=== PATIENT | male | born 1965 | race Caucasian/White ===

== ENCOUNTER 2020-09-09 11:38 | Outpatient (REF) | payer OTHER, SELFPAY ==
[2020-09-09 14:20] LABS: Estimated Average Glucose 212 mg/dL
[2020-09-09 14:39] LABS: Alanine Aminotransferase 24 U/L (0-40); Albumin Level 4.7 g/dL (3.5-5.0); Alkaline Phosphatase 83 U/L (39-117); Anion Gap 18 (12-20); Aspartate Amino Transferase 17 U/L (5-37); Bilirubin Total 0.7 mg/dL (0.0-1.0); Blood Urea Nitrogen 15 mg/dL (9-16); Calcium 9.7 mg/dL (8.4-10.2); Carbon Dioxide 28 mmol/L (22-29); Chloride 99 mmol/L (96-108); Cholesterol 334 mg/dL; Estimated Glomerular Filt Rate > 60; Glucose Fasting 211 mg/dL (60-99); HDL Cholesterol 46 mg/dL; LDL Cholesterol Calculated 248 mg/dl; Potassium 5.1 mmol/l (3.3-5.1); Sodium 140 mmol/L (135-145); Total Protein 7.9 g/dL (6.5-8.0); Triglycerides 200 mg/dL
== END 2020-09-09 11:39 | disposition home or self-care (01) ==
LOC: HO.HMGCLDS 11:38
PROVIDERS: PCP Nurse Practitioner Family; Visit Provider Nurse Practitioner Family
DX: E11.65 Type 2 diabetes mellitus with hyperglycemia (principal); E78.5 Hyperlipidemia, unspecified
CPT/HCPCS: 80053; 80061; 83036

== ENCOUNTER 2020-10-09 11:54 | Outpatient (REF) | payer OTHER, SELFPAY ==
[2020-10-09 14:25] LABS: Cholesterol 130 mg/dL; HDL Cholesterol 36 mg/dL; LDL Cholesterol Calculated 73 mg/dl; Triglycerides 106 mg/dL
== END 2020-10-09 11:55 | disposition home or self-care (01) ==
LOC: HO.HMGCLDS 11:54
PROVIDERS: PCP Nurse Practitioner Family; Visit Provider Nurse Practitioner Family
DX: E78.5 Hyperlipidemia, unspecified (principal); E11.65 Type 2 diabetes mellitus with hyperglycemia
CPT/HCPCS: 36415; 80061

== ENCOUNTER 2020-10-19 13:08 | Outpatient (REF) | payer OTHER, SELFPAY ==
--- NOTE | ~2020-10-19 | XR_ITS ---
EXAMINATION: XR HAND, RIGHT CLINICAL INFORMATION: Right hand pain. COMPARISON: None TECHNIQUE: PA, lateral, and oblique views of the right hand. FINDINGS: No acute fracture or dislocation. Normal carpal alignment. Mild joint space narrowing with small marginal osteophytes at the 1st carpometacarpal joint as well as scattered throughout the metacarpophalangeal and interphalangeal joints. Findings are most prominent at the 3rd distal interphalangeal joint. No osseous erosion. Atherosclerotic calcifications. No periarticular osteopenia. XR/XR hand RT min 3V IMPRESSION: Degenerative arthritis at the 1st carpometacarpal joint as well as scattered throughout the metacarpophalangeal and interphalangeal joints. Findings are most prominent at the 3rd distal interphalangeal joint.
== END 2020-10-19 13:09 | disposition home or self-care (01) ==
LOC: HO.HMGCX 13:08
PROVIDERS: PCP Nurse Practitioner Family; Visit Provider Nurse Practitioner Family
DX: M79.641 Pain in right hand (principal)
CPT/HCPCS: 73130

== ENCOUNTER → 2020-10-28 07:58 | Outpatient (BNVA) | payer OTHER, SELFPAY | PROVIDERS: PCP Nurse Practitioner Family; Visit Provider Orthopaedic Surgery | DX: R20.0 Anesthesia of skin (principal); R20.2 Paresthesia of skin; M79.641 Pain in right hand | CPT/HCPCS: 99202 ==

== ENCOUNTER 2020-12-03 08:32 | Outpatient (REF) | payer OTHER, SELFPAY ==
--- NOTE | 2020-12-03 08:44 | EMG_ITS ---
Right median and ulnar motor and sensory studies were performed. Right radial sensory study was performed and paraspinal muscles were tested. IMPRESSION: [id number] right median neuropathy across carpal tunnel. MD CRUZITO Strickland/SINDY / [id number]
== END 2020-12-03 08:33 | disposition home or self-care (01) ==
LOC: HO.NEURO 08:32
PROVIDERS: Visit Provider Orthopaedic Surgery
DX: M79.641 Pain in right hand (principal); R20.0 Anesthesia of skin; R20.2 Paresthesia of skin; E11.65 Type 2 diabetes mellitus with hyperglycemia
CPT/HCPCS: 95860; 95886; 95909

== ENCOUNTER 2020-12-14 12:08 | Outpatient (REF) | payer OTHER, SELFPAY ==
--- NOTE | ~2020-12-14 | XR_ITS ---
EXAMINATION: XR WRIST, LEFT CLINICAL INFORMATION: Pain in the left wrist COMPARISON: None TECHNIQUE: Four views of the left wrist. FINDINGS: There is no fracture or dislocation. The carpal rows are appropriately aligned. Joint spaces are maintained. Small osteophytes of the first carpometacarpal joint. Small osteophytes are seen at the metacarpophalangeal joints. Vascular calcifications are noted. No osseous erosions. Soft tissue swelling. XR/XR wrist LT min 3V IMPRESSION: Mild degenerative change at the first carpometacarpal joint.
== END 2020-12-14 12:09 | disposition home or self-care (01) ==
LOC: HO.HOSX 12:08
PROVIDERS: PCP Nurse Practitioner Family; Visit Provider Orthopaedic Surgery
DX: G56.01 Carpal tunnel syndrome, right upper limb (principal); M25.532 Pain in left wrist; M25.641 Stiffness of right hand, not elsewhere classified; M79.641 Pain in right hand; S52.502A Unspecified fracture of the lower end of left radius, initial encounter for closed fracture; X58.XXXA Exposure to other specified factors, initial encounter; Y93.9 Activity, unspecified; Y92.9 Unspecified place or not applicable; Y99.8 Other external cause status; I11.0 Hypertensive heart disease with heart failure; I50.9 Heart failure, unspecified; E78.00 Pure hypercholesterolemia, unspecified; G47.33 Obstructive sleep apnea (adult) (pediatric); F17.200 Nicotine dependence, unspecified, uncomplicated; Z88.5 Allergy status to narcotic agent; Z88.8 Allergy status to other drugs, medicaments and biological substances
CPT/HCPCS: 73110; 99212

== ENCOUNTER 2021-02-04 08:06 | Outpatient (REF) | payer OTHER, SELFPAY ==
[2021-02-04 11:29] LABS: Estimated Average Glucose 214 mg/dL; Hemoglobin A1c % 9.1 %
[2021-02-04 11:48] LABS: Alanine Aminotransferase 18 U/L (0-40); Albumin Level 4.5 g/dL (3.5-5.0); Alkaline Phosphatase 92 U/L (39-117); Anion Gap 19 (12-20); Aspartate Amino Transferase 13 U/L (5-37); Bilirubin Total 0.3 mg/dL (0.0-1.0); Blood Urea Nitrogen 22 mg/dL (9-16); Carbon Dioxide 22 mmol/L (22-29); Chloride 103 mmol/L (96-108); Cholesterol 235 mg/dL; Estimated Glomerular Filt Rate 59; Glucose Fasting 330 mg/dL (60-99); HDL Cholesterol 55 mg/dL; LDL Cholesterol Calculated 143 mg/dl; Potassium 4.8 mmol/L (3.3-5.1); Sodium 139 mmol/L (135-145); Total Protein 7.7 g/dL (6.5-8.0); Triglycerides 185 mg/dL
[2021-02-04 11:54] LABS: TSH reflex Free T4 1.35 uIU/mL (0.32-4.0)
== END 2021-02-04 08:07 | disposition home or self-care (01) ==
LOC: HO.HMGCLDS 08:06
PROVIDERS: PCP Nurse Practitioner Family; Visit Provider Nurse Practitioner Family
DX: E11.65 Type 2 diabetes mellitus with hyperglycemia (principal)
CPT/HCPCS: 36415; 80053; 80061; 83036; 84443

== ENCOUNTER → 2021-07-19 10:35 | Outpatient (BNVA) | payer OTHER, SELFPAY | PROVIDERS: PCP Nurse Practitioner Family; Visit Provider Internal Medicine | DX: G47.30 Sleep apnea, unspecified (principal); G47.50 Parasomnia, unspecified; F17.200 Nicotine dependence, unspecified, uncomplicated | CPT/HCPCS: 99202 ==

== ENCOUNTER 2021-10-08 11:23 | Outpatient (REF) | payer OTHER, SELFPAY ==
[2021-10-08 13:57] LABS: Alanine Aminotransferase 31 U/L (0-40); Albumin Level 4.3 g/dL (3.5-5.0); Alkaline Phosphatase 83 U/L (39-117); Anion Gap 14 (12-20); Aspartate Amino Transferase 18 U/L (5-37); Bilirubin Total 0.6 mg/dL (0.0-1.0); Blood Urea Nitrogen 16 mg/dL (9-16); Calcium 10.3 mg/dL (8.4-10.2); Carbon Dioxide 32 mmol/L (22-29); Chloride 101 mmol/L (96-108); Cholesterol 204 mg/dL; Estimated Glomerular Filt Rate > 60; Glucose Fasting 213 mg/dL (60-99); HDL Cholesterol 45 mg/dL; LDL Cholesterol Calculated 121 mg/dl; Potassium 5.3 mmol/L (3.3-5.1); Sodium 142 mmol/L (135-145); Total Protein 7.8 g/dL (6.5-8.0); Triglycerides 194 mg/dL
[2021-10-08 14:05] LABS: Estimated Average Glucose 232 mg/dL; Hemoglobin A1c % 9.7 %
[2021-10-08 14:22] LABS: Prostate Specific Antigen Scr 0.49 ng/mL (<0.05-4.0)
[2021-10-08 14:23] LABS: Creatinine Urine 152.98 mg/dL; Microalbum/Creatinine Ratio Ur 34.6 ug/mg cr
== END 2021-10-08 11:24 | disposition home or self-care (01) ==
LOC: HO.HMGCLDS 11:23
PROVIDERS: Visit Provider Nurse Practitioner Family
DX: Z12.5 Encounter for screening for malignant neoplasm of prostate (principal); E11.65 Type 2 diabetes mellitus with hyperglycemia
CPT/HCPCS: 36415; 80053; 80061; 82043; 83036; 84153

== ENCOUNTER → 2021-10-20 20:03 | Outpatient (REF) | payer OTHER, SELFPAY | LOC: HO.SL 20:03 | PROVIDERS: PCP Nurse Practitioner Family; Visit Provider Internal Medicine | DX: G47.33 Obstructive sleep apnea (adult) (pediatric) (principal); Z99.89 Dependence on other enabling machines and devices | CPT/HCPCS: 95810 ==

== ENCOUNTER → 2021-10-27 13:02 | Outpatient (BNVA) | payer OTHER, SELFPAY | PROVIDERS: PCP Nurse Practitioner Family; Visit Provider Internal Medicine | DX: G47.30 Sleep apnea, unspecified (principal); F17.210 Nicotine dependence, cigarettes, uncomplicated | CPT/HCPCS: 99212 ==

== ENCOUNTER 2021-12-30 11:21 | Outpatient (REF) | payer OTHER, SELFPAY ==
[2021-12-30 13:58] LABS: Anion Gap 10 (12-20); Carbon Dioxide 25 mmol/L (22-29); Chloride 104 mmol/L (96-108); Potassium 4.3 mmol/L (3.3-5.1); Sodium 135 mmol/L (135-145)
== END 2021-12-30 11:22 | disposition home or self-care (01) ==
LOC: HO.HMGCLDS 11:21
PROVIDERS: PCP Nurse Practitioner Family; Visit Provider Nurse Practitioner Family
DX: E87.5 Hyperkalemia (principal)
CPT/HCPCS: 36415; 80051

== ENCOUNTER → 2022-01-03 12:55 | Outpatient (BNVA) | payer OTHER, SELFPAY | PROVIDERS: PCP Nurse Practitioner Family; Visit Provider Internal Medicine | DX: G47.33 Obstructive sleep apnea (adult) (pediatric) (principal); G47.50 Parasomnia, unspecified; F17.210 Nicotine dependence, cigarettes, uncomplicated | CPT/HCPCS: 99212 ==

== ENCOUNTER 2022-05-27 10:49 | Outpatient (REF) | payer OTHER, SELFPAY ==
[2022-05-27 13:58] LABS: MANUAL DIFF FLAG NO
[2022-05-27 14:03] LABS: Basophils Percent Auto 0.5 % (0-2); Eosinophils Absolute Auto 0.2 X10*3/uL (0.0-0.4); Eosinophils Percent Auto 2.4 % (0-4); Hematocrit 48.4 % (42.0-52.0); Hemoglobin 15.6 g/dl (14.0-18.0); Imm Gran Abs Auto 0.02 X10*3/uL (0.00-0.03); Imm Gran Pct Auto 0.3 % (0.0-0.4); Mean Corpuscular HGB Conc 32.2 g/dl (31.0-36.0); Mean Corpuscular Hemoglobin 31.7 pg (27.0-33.0); Mean Corpuscular Volume 98.4 fL (80.0-98.0); Mean Platelet Volume 10.9 fL (9.4-12.4); Monocytes Absolute Auto 0.6 X10*3/uL (0.1-1.2); Monocytes Percent Auto 7.1 % (2-11); Neutrophils Absolute Auto 5.1 x10*3/uL (2.0-8.3); Neutrophils Percent Auto 64.7 % (45-73); Platelet Count 207 X10*3/uL (160-400); Red Blood Count 4.92 X10*6/uL (4.60-5.80); Red Cell Distribution Width 14.1 % (11.0-16.0); White Blood Count 7.9 X10*3/uL (4.8-10.8)
[2022-05-27 14:08] LABS: Appearance Urine Turbid; Color Urine Yellow; Glucose Urine UA Negative (Negative); Leukocyte Esterase Urine Negative (Negative); Nitrite Urine Negative (Negative); PH 5.5 (5.0-9.0); Specific Gravity - Urine >= 1.030 (1.005-1.025); Urine Blood Negative (Negative); Urine Ketones Negative (Negative); Urine Protein Negative (Neg-Trace)
[2022-05-27 14:14] LABS: Alanine Aminotransferase 28 U/L (0-40); Albumin Level 4.3 g/dL (3.5-5.0); Alkaline Phosphatase 70 U/L (39-117); Anion Gap 18 (12-20); Aspartate Amino Transferase 18 U/L (5-37); Bilirubin Total 0.6 mg/dL (0.0-1.0); Blood Urea Nitrogen 19 mg/dL (9-16); Calcium 9.7 mg/dL (8.4-10.2); Carbon Dioxide 28 mmol/L (22-29); Chloride 102 mmol/L (96-108); Cholesterol 310 mg/dL; Estimated Average Glucose 212 mg/dL; Estimated Glomerular Filt Rate > 60; Glucose Fasting 168 mg/dL (60-99); HDL Cholesterol 44 mg/dL; LDL Cholesterol Calculated 232 mg/dl; Potassium 5.7 mmol/L (3.3-5.1); Sodium 142 mmol/L (135-145); Total Protein 7.5 g/dL (6.5-8.0); Triglycerides 170 mg/dL
[2022-05-27 14:37] LABS: TSH reflex Free T4 1.03 uIU/mL (0.32-4.0)
[2022-05-27 14:38] LABS: Creatinine Urine 218.45 mg/dL
== END 2022-05-27 10:50 | disposition home or self-care (01) ==
LOC: HO.HMGCLDS 10:49
PROVIDERS: PCP Nurse Practitioner Family; Visit Provider Nurse Practitioner Family
DX: E11.65 Type 2 diabetes mellitus with hyperglycemia (principal)
CPT/HCPCS: 36415; 80053; 80061; 81003; 82043; 83036; 84443; 85025

== ENCOUNTER 2022-06-06 10:32 | Outpatient (REF) | payer OTHER, SELFPAY ==
[2022-06-06 12:45] LABS: Anion Gap 20 (12-20); Carbon Dioxide 27 mmol/L (22-29); Chloride 103 mmol/L (96-108); Potassium 5.6 mmol/L (3.3-5.1); Sodium 144 mmol/L (135-145)
== END 2022-06-06 10:33 | disposition home or self-care (01) ==
LOC: HO.HMGCLDS 10:32
PROVIDERS: PCP Nurse Practitioner Family; Visit Provider Nurse Practitioner Family
DX: E87.5 Hyperkalemia (principal)
CPT/HCPCS: 36415; 80051

== ENCOUNTER 2022-06-11 13:02 | Outpatient (REF) | payer OTHER, SELFPAY ==
[2022-06-11 15:24] LABS: Anion Gap 13 (12-20); Carbon Dioxide 28 mmol/L (22-29); Chloride 107 mmol/L (96-108); Sodium 143 mmol/L (135-145)
== END 2022-06-11 13:03 | disposition home or self-care (01) ==
LOC: HO.HMGCLDS 13:02
PROVIDERS: PCP Nurse Practitioner Family; Visit Provider Nurse Practitioner Family
DX: E87.5 Hyperkalemia (principal)
CPT/HCPCS: 36415; 80051

== ENCOUNTER 2022-06-24 09:41 | Outpatient (REF) | payer OTHER, SELFPAY ==
--- NOTE | ~2022-06-24 | XR_ITS ---
EXAMINATION: XR SHOULDER, RIGHT CLINICAL INFORMATION: Pain. COMPARISON: None TECHNIQUE: AP external rotation, Grashey, scapular Y, and axillary views of the right shoulder. FINDINGS: There is loss of right glenohumeral and before meals joint space with moderate periarticular spurring. No visible acute fracture, dislocation or subluxation seen. A small osteophyte along the right greater tuberosity. No bony erosive changes. The soft tissues are normal. XR/XR shoulder RT min 2V IMPRESSION: 1. Degenerative arthritic changes right shoulder joint. No visible acute fracture, dislocation or subluxation seen. 2. Small osteophyte along the right greater tuberosity.
== END 2022-06-24 09:42 | disposition home or self-care (01) ==
LOC: HO.HMGCX 09:41
PROVIDERS: PCP Nurse Practitioner Family; Visit Provider Nurse Practitioner Family
DX: M25.511 Pain in right shoulder (principal)
CPT/HCPCS: 73030

== ENCOUNTER → 2022-08-02 10:37 | Outpatient (BNVA) | payer OTHER, SELFPAY | PROVIDERS: PCP Nurse Practitioner Family; Visit Provider Physician Assistant | DX: M19.019 Primary osteoarthritis, unspecified shoulder (principal); M75.101 Unspecified rotator cuff tear or rupture of right shoulder, not specified as traumatic; E11.9 Type 2 diabetes mellitus without complications | CPT/HCPCS: 20610; 99202; J1020 ==

== ENCOUNTER → 2022-08-18 10:36 | Outpatient (BNVA) | payer OTHER, SELFPAY | PROVIDERS: PCP Nurse Practitioner Family; Visit Provider Physician Assistant | DX: M75.101 Unspecified rotator cuff tear or rupture of right shoulder, not specified as traumatic (principal); M19.011 Primary osteoarthritis, right shoulder; E11.9 Type 2 diabetes mellitus without complications; I10 Essential (primary) hypertension; E78.00 Pure hypercholesterolemia, unspecified | CPT/HCPCS: 99212 ==

== ENCOUNTER → 2022-08-24 08:17 | Outpatient (BNVA) | payer OTHER, SELFPAY | PROVIDERS: PCP Nurse Practitioner Family; Visit Provider Physician Assistant | DX: R19.5 Other fecal abnormalities (principal); K22.70 Barrett's esophagus without dysplasia; Z78.9 Other specified health status | CPT/HCPCS: 99202 ==

== ENCOUNTER 2022-09-01 10:30 | Outpatient (REF) | payer OTHER, SELFPAY ==
--- NOTE | ~2022-09-01 | XR_ITS ---
EXAMINATION: XR CHEST CLINICAL INFORMATION: Cough. COMPARISON: 07/17/2018 chest radiograph. TECHNIQUE: 2 views of the chest were obtained. FINDINGS: No significant abnormality is noted involving the heart, lungs, mediastinum, bony thorax or soft tissues. XR/XR chest 2V IMPRESSION: No acute cardiopulmonary process.
== END 2022-09-01 10:31 | disposition home or self-care (01) ==
LOC: HO.HMGCX 10:30
PROVIDERS: PCP Nurse Practitioner Family; Visit Provider Nurse Practitioner Family
DX: R05.9 Cough, unspecified (principal)
CPT/HCPCS: 71046

== ENCOUNTER → 2022-09-15 15:30 | Outpatient (BNVA) | payer OTHER, SELFPAY | PROVIDERS: PCP Nurse Practitioner Family; Visit Provider Internal Medicine | DX: G47.30 Sleep apnea, unspecified (principal); F17.290 Nicotine dependence, other tobacco product, uncomplicated | CPT/HCPCS: 94010; 99212 ==

== ENCOUNTER 2022-09-19 12:52 | Day surgery (SDC) | payer OTHER, SELFPAY ==
[2022-09-14 15:23] VITALS: BMI 38.5
[2022-09-19 13:21] VITALS: BP 166/90; PULSE 104; RESP 18; TEMP 36.1; O2SAT 97; BMI 34.4
[2022-09-19 13:34] LABS: Glucose, Whole Blood 277 mg/dL (60-115)
--- NOTE | 2022-09-19 13:45 | ECG_ITS ---
Test Reason : ST ELEVATIONS Blood Pressure : / mmHG Vent. Rate : 087 BPM Atrial Rate : 087 BPM P-R Int : 146 ms QRS Dur : 134 ms QT Int : 390 ms P-R-T Axes : 070 -09 034 degrees QTc Int : 469 ms Normal sinus rhythm Right bundle branch block Abnormal ECG No previous ECGs available Referred By: Boone Gaviria Electronically Signed By:Rod Goncalves
[2022-09-19] MEDS: Lactated Ringers 1,000 ML 80 ML IVCONT (13:49)
--- NOTE | 2022-09-19 13:57 | P.CONAN_ITS ---
[facility] Active Problems Active Problems: All Active Problems (Updated 09/15/22 @ 16:41 by Marlon Cid MD) Uncontrolled diabetes mellitus (Acute) Dyslipidemia (Acute) Right hand pain (Acute) Numbness and tingling in right hand (Acute) Carpal tunnel syndrome of right wrist (Acute) Stiffness of right hand, not elsewhere classified (Acute) Distal radius fracture, left (Acute) Screening PSA (prostate specific antigen) (Acute) Hyperkalemia (Acute) Right shoulder pain (Acute) Barretts esophagus (Acute) Diabetes mellitus (Acute) Glenohumeral arthritis (Acute) Acromioclavicular joint arthritis (Acute) Painful arc syndrome of right shoulder (Acute) Cough (Acute) Positive colorectal cancer screening using Cologuard test (Acute) Poor historian (Acute) Hypertension (Acute) Parasomnia (Acute) Smoker (Acute) Sleep apnea (Acute) Past Medical History Medical History Acid reflux CHF (congestive heart failure) Diabetes Dysplastic colon polyp High cholesterol Hypertension Parasomnia Sleep apnea Smoker Family History Family History Mother No problems noted. Father No problems noted. Family history of problems with anesthesia: No Surgical History Surgical History H/O colonoscopy H/O resection of small bowel History of colon resection Hx of rotator cuff surgery History of Problems with Anesthesia: No Social History Social History Housing: Apartment Housing Other:: mobile home Are you a primary patient care assistant to a significant other at home: No Do you presently have visiting nurse or other home services: No Alcohol intake: current Alcohol intake frequency: former alcohol drinker Patient Tobacco Use Status: Current everyday Tobacco user Tobacco use type: Cigarette Cigarette Packs Per Day: 0.5 Cigarettes Per Day: 7 Years Smoked: 41 e-Cigarette/Vaping Use: Never Used Second Hand Smoke Exposure: No Use of substances other than those prescribed or required for medical reasons: Yes Substance Use Frequency: Occasionally Have you been hit, kicked, punched, or otherwise hurt by someone within the past year? If so, by whom?: No Are you DNR?: No Advance Directives: No Advance Directives Information Provided: Yes (brochure mailed) Advance Directives on File: No Recently lost weight without trying: No Eating poorly because of decreased appetite: No Nutrition Risks: No Nutritional Risk Poor oral hygiene: Yes (5 missing teeth-upper & 1 loose tooth-upper) Current occupational status: unemployed Current occupation: left handed Cognitive needs: No Hearing needs: No Vision needs: No Meds Allergies Allergy/AdvReac Type Severity Reaction Status Date / Time adhesive tape Allergy Intermediate Rash Verified 09/15/22 16:27 codeine [Tylenol-Codeine #3] Allergy Intermediate Rash Verified 09/15/22 16:27 hydrocodone [Vicodin] Allergy Intermediate confusion/does Verified 09/15/22 16:27 not relieve pain morphine Allergy Intermediate rash Verified 09/15/22 16:27 diphenhydramine AdvReac Intermediate Itching Verified 09/15/22 16:27 [From Benadryl] Active Medications: Current Medications Lactated Ringer's (Lr) 1,000 mls @ 80 mls/hr IVCONT .[id number] ROCK Last Admin: 09/19/22 13:49 Dose: 80 mls/hr Exam Exam Date and Time: September 19, 2022 1357 Height,Weight and Vital Signs: Height 5 ft 10 in Weight 108.862 kg Last Vital Signs Temp 96.9 F 09/19/22 13:21 Pulse 104 H 09/19/22 13:21 Resp 18 09/19/22 13:21 BP 166/90 H 09/19/22 13:21 Pulse Ox 97 09/19/22 13:21 O2 Del Method 09/19/22 13:21 Pertinent Lab Results Pertinent Lab Results: Laboratory Tests 09/19/22 13:30 POC Glucose 277 H Airway Mallampati Class: II (Missing multiple on top, 2 loose on the bottom) TM Dist: >3cm Neck ROM: Full Heart: rrr Lungs: cta Assessment and Plan Assessment Anesthesia Assessment: Anesthesia Plan Discussed and Chart Reviewed Final Anesthetic Review Family History of Problems with Anesthesia: No History of Problems with Anesthesia: No NPO: Yes ASA Class: III Final Preanesthetic Review: No Changes in Pt Med Stat, Meds/Allgs Chart Reviewed and Consent Obtained/Reviewed Patient Risk: Intermediate Anesthetic Plan Anesthetic Plan: MAC: Disposition: Standard PACU
--- NOTE | 2022-09-19 14:46 | MHC.SHP ---
Pre-Procedural Eval Section A Date of Service: 09/19/22 The History & Physical has been completed within 30 days and I have reviewed it.: Yes Section B Chief Complaint: Hx of lama's, positive cologuard Allergies: Allergies Allergy/AdvReac Type Severity Reaction Status Date / Time adhesive tape Allergy Intermediate Rash Verified 09/15/22 16:27 codeine [Tylenol-Codeine #3] Allergy Intermediate Rash Verified 09/15/22 16:27 hydrocodone [Vicodin] Allergy Intermediate confusion/does Verified 09/15/22 16:27 not relieve pain morphine Allergy Intermediate rash Verified 09/15/22 16:27 diphenhydramine AdvReac Intermediate Itching Verified 09/15/22 16:27 [From Benadryl] Plan Diagnosis/Plan: Unchanged I have reviewed the history and physical and performed a pertinent physical examination on my patient. No changes have occurred unless specified. Time Spent With Patient Time: Total time managing care of this patient today ____ minutes.
--- NOTE | 2022-09-19 14:47 | P.OP_ITS ---
Operative Note Operative Note Date of Service: 09/19/22 Narrative: Procedure:?Esophagogastroduodenoscopy and Colonoscopy Indication:?Galvez's esophagus, + cologuard test Endoscopist:?Juanita Duncan MD Anesthesia Provider:?Dr Romina Webber Anesthesia type:?MAC Instrument:?Olympus GIF-H190 and PCF-H190L ?? EGD Procedure:?? The procedure, indications, preparation and potential complications were reviewed with the patient, who indicated understanding and gave written informed consent to proceed. A physical exam was performed. The endoscope was introduced through the mouth, and advanced to the third part of duodenum. The mucosa was carefully examined on slow withdrawal of the endoscope. The patient tolerated the procedure well. There were no immediate complications.? ? EGD Findings:? * Esophagus:? Normal mucosa. GEJ noted at 40 cm. Sultana pink colored columnar mucosa was noted to extend up to 39 cm with one small island at 38 cm. Cold forceps biopsies were obtained to r/o Galvez's esophagus. * Stomach:?Normal stomach mucosa. * Duodenum:? Normal duodenum mucosa. Cold forceps biopsies were taken from duodenal bulb and second portion of the duodenum to rule out celiac sprue. Colonoscopy Procedure:? The patient was then turned for the colonoscopy. A digital rectal exam was performed which was normal. The colonoscope was then inserted through the anus and advanced through the colon to the ileocolonic anastomosis at 75 cm. Mucosa was carefully examined under high definition white light as the instrument was slowly withdrawn in a retrograde panoramic fashion. Retroflexion was performed in rectum. The procedure was not difficult. There were no immediate obvious complications. The quality of the prep was BBPS: 2+2+2 = adequate Withdrawal time 35 minutes. Limitations: No limitations Colonoscopy findings: Mucosa: Normal mucosa was noted throughout the colon and the terminal ileum. Protruding lesions: * 1 sessile polyp of size 2 mm was noted in transverse colon. Cold forceps polypectomy was performed. The polyp was completely removed and retrieved. * 1 sessile polyp of size 5 mm was noted in descending colon. Cold snare polypectomy was performed. The polyp was completely removed and retrieved. * 1 sessile polyp of size 4 mm was noted in sigmoid colon. Cold snare polypectomy was performed. The polyp was completely removed and retrieved. * 1 sessile polyp of size 8 mm was noted in rectum. Cold snare polypectomy was performed. The polyp was completely removed and retrieved. * Medium internal hemorrhoids without stigmata of recent bleeding. Excavated lesions: * Small mouthed diverticula noted in sigmoid colon. Impression:? * Columnar mucosa above GEJ r/o Galvez's (biopsy) * Normal stomach * Normal duodenum (biopsy) * Normal colon and T.I mucosa * Total of 4 polyps removed. * Diverticulosis * Internal hemorrhoids * Surgical anastomosis Recommendations:?? * Follow biopsy results. Our office will call or send a letter with results within 7-10 days.? * Repeat colonoscopy in 3 years if at least 3 polyps are adenomas, otherwise 5 years due to prep and personal hx of ? advanced polyp vs early CRC requiring resection. * Repeat EGD in 3-5 years if continues with nondysplastic BE Above has been reviewed with the patient. Relevant educational hand outs were provided at discharge.?
[2022-09-19 15:50] VITALS: BP 84/48; PULSE 74; RESP 16; TEMP 36.4; O2SAT 96
[2022-09-19 16:05] VITALS: BP 131/67; PULSE 81; RESP 18; TEMP 36.2; O2SAT 96
[2022-09-19 16:20] VITALS: BP 151/71; PULSE 79; RESP 18; TEMP 36.2; O2SAT 96
== END 2022-09-19 16:33 | disposition home or self-care (01) ==
PROVIDERS: PCP Nurse Practitioner Family; Visit Provider Internal Medicine
PROC: (CPT 45385; principal; 2022-09-19 14:30)
DX: R19.5 Other fecal abnormalities (principal); D12.5 Benign neoplasm of sigmoid colon; K63.5 Polyp of colon; K62.1 Rectal polyp; K57.30 Diverticulosis of large intestine without perforation or abscess without bleeding; K64.8 Other hemorrhoids; Z90.49 Acquired absence of other specified parts of digestive tract; Z98.0 Intestinal bypass and anastomosis status; K22.70 Barrett's esophagus without dysplasia; K21.9 Gastro-esophageal reflux disease without esophagitis; I50.9 Heart failure, unspecified; I11.0 Hypertensive heart disease with heart failure; G47.33 Obstructive sleep apnea (adult) (pediatric); Z79.51 Long term (current) use of inhaled steroids; Z79.4 Long term (current) use of insulin; Z79.899 Other long term (current) drug therapy; Z88.8 Allergy status to other drugs, medicaments and biological substances; Z91.040 Latex allergy status; F17.210 Nicotine dependence, cigarettes, uncomplicated; Z78.9 Other specified health status
CPT/HCPCS: 45385; 45380; 43239; 82947; 88305; 93005

== ENCOUNTER 2022-11-02 11:00 | Outpatient (RCR) | payer OTHER, SELFPAY ==
--- NOTE | 2022-09-23 12:05 | MHC.PT.EP ---
[facility] [place] Office [place] Office [place] Office [address] [phone] F: [phone] F: [phone] F: [phone] F: [phone] Physical Therapy Plan of Care Date of Evaluation: Date of Surgery: Diagnosis: unspecified RTC tear or rupture of R shoulder painful arc syndrome or R shoulder AC joint arthritis GH arthritis Assessment: 56 y/o ambidextrous male referred to PT with unspecified RTC tear or rupture of R UE. Injury occurred while he was helping a friend move a dresser when his friend dropped the dresser and he held on still. S/s consistent with dx and ?overlapping cervical derangment resulting in pain and difficulty with reaching, lifting, sleeping through the night, carrying secondary to decreased R A/PROM, decreased R shoulder strength, decreased cervical AROM, pain, and impaired postural awareness. Recommend 2x/week for 5 weeks to address impairments, implement HEP, and optimize functional mobility. 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 Manual therapy to restore motion and function. Therapeutic exercise to improve strength and flexibility. Neuromuscular re-education for posture and balance. Therapeutic activities to return to functional activities of daily living. Electronically signed by: Mary Ramirez PT Please sign and return to therapist. Thank you for your referral.
--- NOTE | 2022-11-07 14:06 | MHC.PT.DC ---
[facility] [place] Office [place] Office [place] Office [address] [phone] F: [phone] F: [phone] F: [phone] F: [phone] Physical Therapy Discharge Report Diagnosis: unspecified RTC tear or rupture of R shoulder painful arc syndrome or R shoulder AC joint arthritis GH arthritis Date of Surgery: Date of Evaluation: 09/23/22 Date of Discharge: 11/07/22 Treatments to Date: 10 Cancellations to Date: 0 No Shows to Date: 0 Discharge Status: Independent with HEP Recommend MD Follow-up Discharge Summary: Pt is I with HEP and has improved ROM, but still has same pain levels. Recommended he f/u with MD regarding continued pain levels. D/c to HEP at this time. Electronically signed by: Mary Ramirez PT Please sign and return to therapist. Thank you for your referral.
== END 2022-11-07 14:06 | disposition home or self-care (01) ==
LOC: HO.PTCHIC 11:00
PROVIDERS: Visit Provider Physician Assistant
DX: M75.101 Unspecified rotator cuff tear or rupture of right shoulder, not specified as traumatic (principal); M19.011 Primary osteoarthritis, right shoulder
CPT/HCPCS: 97110; 97140; 97162

== ENCOUNTER → 2022-11-28 09:34 | Outpatient (BNVA) | payer OTHER, SELFPAY | PROVIDERS: PCP Nurse Practitioner Family; Visit Provider Physician Assistant | DX: M19.019 Primary osteoarthritis, unspecified shoulder (principal); M75.101 Unspecified rotator cuff tear or rupture of right shoulder, not specified as traumatic; E11.9 Type 2 diabetes mellitus without complications | CPT/HCPCS: 99212 ==

== ENCOUNTER 2023-01-02 14:23 | Outpatient (REF) | payer OTHER, SELFPAY ==
--- NOTE | ~2023-01-02 | MR_ITS ---
EXAMINATION: MR SHOULDER WITHOUT CONTRAST, RIGHT CLINICAL INFORMATION: Right shoulder pain and decreased range of motion following an injury. Rotator cuff repair. COMPARISON: Right shoulder radiographs dated 06/24/2022. TECHNIQUE: MRI of the shoulder without contrast was performed on a high-field scanner. FINDINGS: ROTATOR CUFF: Orthopedic anchors within the humeral head consistent with prior rotator cuff tendon repair. Significant attenuation of the supraspinatus tendon with irregular full-thickness partial tearing measuring up to 1.4 x 3.8 cm (AP by ML) with the torn tendon fibers retracted proximal to the humeral head apex. Moderate subscapularis and mild infraspinatus tendinosis. Supraspinatus, infraspinatus, and teres minor muscle atrophy. BICEPS: Attenuated, likely indicating normal variation. CORACOACROMIAL ARCH: The undersurface of the acromion is curved with prominent subacromial spurring. Severe acromioclavicular osteoarthritis. LABRUM/CAPSULE: Attenuation and irregularity of the anterior labrum which could represent degenerative fraying. No displaced labral tear. Intact inferior joint capsule. GLENOHUMERAL JOINT/MARROW: Glenohumeral articular cartilage thinning and signal heterogeneity with marginal osteophytes. No acute osseous injury. MR/MR shoulder RT wo con IMPRESSION: 1. Postsurgical change consistent with prior rotator cuff tendon repair. Significant attenuation of the supraspinatus tendon with irregular full-thickness partial tearing measuring 1.4 x 3.8 cm (AP by ML) with the torn tendon fibers retracted proximal to the humeral head apex. Moderate subscapularis and mild infraspinatus tendinosis. Mild supraspinatus, infraspinatus, and teres minor muscle atrophy. 2. Attenuated biceps tendon, likely indicating normal variation. 3. Severe acromioclavicular osteoarthritis with prominent subacromial spurring. 4. Degenerative fraying of the anterior labrum without a displaced labral tear. 5. Mild glenohumeral osteoarthritis.
== END 2023-01-02 14:24 | disposition home or self-care (01) ==
LOC: HO.MRI 14:23
PROVIDERS: PCP Nurse Practitioner Family; Visit Provider Physician Assistant
DX: M75.101 Unspecified rotator cuff tear or rupture of right shoulder, not specified as traumatic (principal); M19.011 Primary osteoarthritis, right shoulder
CPT/HCPCS: 73221

== ENCOUNTER → 2023-01-16 13:09 | Outpatient (BNVA) | payer OTHER, SELFPAY | PROVIDERS: PCP Nurse Practitioner Family; Visit Provider Orthopaedic Surgery | DX: M75.101 Unspecified rotator cuff tear or rupture of right shoulder, not specified as traumatic (principal); S46.111A Strain of muscle, fascia and tendon of long head of biceps, right arm, initial encounter; E11.65 Type 2 diabetes mellitus with hyperglycemia | CPT/HCPCS: 99212 ==

== ENCOUNTER 2023-01-27 14:05 | Outpatient (REF) | payer OTHER, SELFPAY ==
[2023-01-27 17:34] LABS: Estimated Average Glucose 235 mg/dL; Hemoglobin A1c % 9.8 %
== END 2023-01-27 14:06 | disposition home or self-care (01) ==
LOC: HO.HMGCLDS 14:05
PROVIDERS: PCP Nurse Practitioner Family; Visit Provider Orthopaedic Surgery
DX: E11.65 Type 2 diabetes mellitus with hyperglycemia (principal)
CPT/HCPCS: 36415; 83036

== ENCOUNTER 2023-02-03 10:13 | Outpatient (REF) | payer OTHER, SELFPAY ==
[2023-02-03 11:17] LABS: MANUAL DIFF FLAG NO
[2023-02-03 11:35] LABS: Appearance Urine Clear; Color Urine Yellow; Glucose Urine UA Negative (Negative); Leukocyte Esterase Urine Negative (Negative); Nitrite Urine Negative (Negative); PH 5.5 (5.0-9.0); Urine Blood Negative (Negative); Urine Ketones Trace mg/dL (Negative); Urine Protein Trace mg/dL (Neg-Trace)
[2023-02-03 11:46] LABS: Basophils Absolute Auto 0.1 X10*3/uL (0.0-0.2); Basophils Percent Auto 0.5 % (0-2); Eosinophils Absolute Auto 0.2 X10*3/uL (0.0-0.4); Eosinophils Percent Auto 1.8 % (0-4); Hematocrit 53.1 % (42.0-52.0); Hemoglobin 17.9 g/dl (14.0-18.0); Imm Gran Abs Auto 0.03 X10*3/uL (0.00-0.03); Imm Gran Pct Auto 0.3 % (0.0-0.4); Lymphocytes Absolute Auto 2.4 X10*3/uL (1.2-4.9); Lymphocytes Percent Auto 24.5 % (20-40); Mean Corpuscular HGB Conc 33.7 g/dl (31.0-36.0); Mean Corpuscular Hemoglobin 32.3 pg (27.0-33.0); Mean Corpuscular Volume 95.8 fL (80.0-98.0); Mean Platelet Volume 10.7 fL (9.4-12.4); Monocytes Absolute Auto 0.6 X10*3/uL (0.1-1.2); Monocytes Percent Auto 6.4 % (2-11); Neutrophils Absolute Auto 6.6 x10*3/uL (2.0-8.3); Neutrophils Percent Auto 66.5 % (45-73); Platelet Count 240 X10*3/uL (160-400); Red Blood Count 5.54 X10*6/uL (4.60-5.80); Red Cell Distribution Width 12.4 % (11.0-16.0); White Blood Count 9.9 X10*3/uL (4.8-10.8)
[2023-02-03 11:55] LABS: Estimated Average Glucose 226 mg/dL; Hemoglobin A1c % 9.5 %
[2023-02-03 12:27] LABS: Alanine Aminotransferase 18 U/L (0-40); Albumin Level 4.3 g/dL (3.5-5.0); Alkaline Phosphatase 94 U/L (39-117); Anion Gap 16 (12-20); Aspartate Amino Transferase 17 U/L (5-37); Bilirubin Total 0.4 mg/dL (0.0-1.0); Blood Urea Nitrogen 13 mg/dL (9-16); Calcium 10.1 mg/dL (8.4-10.2); Carbon Dioxide 28 mmol/L (22-29); Chloride 102 mmol/L (96-108); Cholesterol 132 mg/dL; Estimated Glomerular Filt Rate > 60; Glucose Fasting 110 mg/dL (60-99); HDL Cholesterol 35 mg/dL; LDL Cholesterol Calculated 67 mg/dl; Potassium 5.3 mmol/L (3.3-5.1); Sodium 141 mmol/L (135-145); Total Protein 7.6 g/dL (6.5-8.0); Triglycerides 151 mg/dL
[2023-02-03 12:47] LABS: TSH reflex Free T4 1.47 uIU/mL (0.32-4.0)
== END 2023-02-03 10:14 | disposition home or self-care (01) ==
LOC: HO.HMGCLDS 10:13
PROVIDERS: PCP Nurse Practitioner Family; Visit Provider Nurse Practitioner Family
DX: E11.65 Type 2 diabetes mellitus with hyperglycemia (principal)
CPT/HCPCS: 36415; 80053; 80061; 81003; 83036; 84443; 85025

== ENCOUNTER 2023-02-13 10:26 | Outpatient (REF) | payer OTHER, SELFPAY ==
[2023-02-13 11:54] LABS: Anion Gap 19 (12-20); Carbon Dioxide 24 mmol/L (22-29); Chloride 100 mmol/L (96-108); Potassium 4.8 mmol/L (3.3-5.1); Sodium 138 mmol/L (135-145)
== END 2023-02-13 10:27 | disposition home or self-care (01) ==
LOC: HO.HMGCLDS 10:26
PROVIDERS: PCP Nurse Practitioner Family; Visit Provider Nurse Practitioner Family
DX: E87.5 Hyperkalemia (principal)
CPT/HCPCS: 36415; 80051

== ENCOUNTER → 2023-03-10 11:38 | Outpatient (BNVA) | payer OTHER, SELFPAY | PROVIDERS: Visit Provider Physician Assistant ==

== ENCOUNTER 2023-03-28 13:03 | Outpatient (AMB) | payer OTHER, SELFPAY ==
--- NOTE | 2023-03-28 13:05 | MHC.OFFVIS ---
Intake Vital Signs 03/28/23 13:06 Height 5 ft 7 in Weight 244 lb 11.41 oz BMI 38.3 BP 128/68 Blood Pressure Location Lt brachial Position Sitting Pulse 73 Pulse Source Pulse Oximeter Pulse Oximetry (%) 98 Oxygen Delivery Method Room Air Intake Visit Reasons: RT Rotator Cuff Repair Travel Rn Required: No Environmental Compliance Manager: Environmental Compliance Manager offered & declined Accompanied by: Self / Same As Patient Allergies adhesive tape Allergy (Intermediate, Verified 03/28/23 13:11) Rash codeine [Tylenol-Codeine #3] Allergy (Intermediate, Verified 03/28/23 13:11) Rash hydrocodone [Vicodin] Allergy (Intermediate, Verified 03/28/23 13:11) confusion/does not relieve pain morphine Allergy (Intermediate, Verified 03/28/23 13:11) rash diphenhydramine [From Benadryl] Adverse Reaction (Intermediate, Verified 03/28/23 13:11) Itching Medication List - Last Reconciled 03/28/23 by Zoraida Ramirez LPN albuterol sulfate 90 mcg/actuation (Ventolin HFA) 2 puffs PO Q4-6H PRN blood sugar diagnostic (FreeStyle Lite Strips) 1 strip miscellaneous TID blood-glucose meter (FreeStyle Lite Meter kit) check sugar twice a day docusate sodium (Colace) 200 mg (2 x 100 mg) PO BEDTIME dulaglutide 4.5 mg (0.5 mL) subcut QWEEK fluticasone propionate 50 mcg/actuation (Flonase Allergy Relief) 1 spray intranasal DAILY 30 days gemfibrozil 600 mg PO DAILY 90 days insulin detemir U-100 (Levemir FlexTouch U-100 Insulin) 62 units (0.62 mL) subcut BID 30 days lancets (FreeStyle Lancets) check sugar three times a day lisinopril 10 mg PO DAILY 90 days metformin 1,000 mg PO BID 90 days omeprazole 20 mg PO DAILY 90 days pen needle, diabetic (BD Ultra-Fine Short Pen Needle) twice a day rosuvastatin (Crestor) 40 mg PO DAILY 90 days HPI RT Rotator Cuff Repair HPI Details Alden is a pleasant 57 year old male, BMI 38.3, followed for underlying severe obstructive sleep apnea on BiPAP therapy. He presents today for preoperative pulmonary evaluation for right rotator cuff surgery with Dr. Black tomorrow. We reviewed his compliance report and he has been inconsistently using therapy. He reports having issues with the mask and will try a full face mask. He reports infrequent use of albuterol. He denies any dyspnea on exertion, wheezing or cough. He denies any recent respiratory infections or hospitalizations. [facility] Medical History Acid reflux CHF (congestive heart failure) Diabetes Dysplastic colon polyp High cholesterol Hypertension Parasomnia Sleep apnea Smoker Surgical History H/O colonoscopy H/O resection of small bowel History of colon resection History of esophagogastroduodenoscopy (EGD) Hx of rotator cuff surgery Family History Mother No problems noted. Father No problems noted. Social History (Updated 03/28/23 @ 13:13 by Zoraida Ramirez LPN) Housing: Apartment Housing Other:: mobile home Are you a primary animal care assistant to a significant other at home: No Do you presently have visiting nurse or other home services: No Alcohol intake: current Alcohol intake frequency: does not drink Patient Tobacco Use Status: Current everyday Tobacco user Tobacco use type: Cigarette and Cigar Cigarette Packs Per Day: 0.5 Cigarettes Per Day: 5 Years Smoked: 35+ e-Cigarette/Vaping Use: Never Used Second Hand Smoke Exposure: No Use of substances other than those prescribed or required for medical reasons: Yes Substance Use Type: Marijuana Substance Use Frequency: Occasionally Current occupational status: unemployed Current occupation: left handed Cognitive needs: No Hearing needs: No Vision needs: No Review of Systems Const Denies chills, Denies excessive sweating, Denies fever(s), Denies headache(s) and Denies night sweats Eyes Denies dry eyes, Denies irritation and Denies itchy eyes ENT Reports Normal hearing present, Denies headache(s), Denies nasal congestion, Denies nasal discharge, Denies post nasal drip and Denies sore throat Card Denies chest pain, Denies chest pain at rest, Denies chest pain with activity, Denies claudication, Denies leg edema, Denies dyspnea, Denies dyspnea on exertion, Denies orthopnea and Denies paroxysmal nocturnal dyspnea Resp Denies chest congestion, Denies cough, Denies excessive phlegm production, Denies pain on inspiration, Denies pain with cough, Denies dyspnea, Denies dyspnea on exertion, Denies stridor and Denies wheezing Musc Denies myalgias Neuro Reports Normal hearing present and Denies headache(s) Endo Denies excessive sweating Blake/Lymph Denies lymphadenopathy Aller/Immun Denies itchy eyes, Denies seasonal rhinorrhea and Denies wheezing Physical Exam Vital Signs: Last Vital Signs Pulse 73 03/28/23 13:06 BP 128/68 03/28/23 13:06 Pulse Ox 98 03/28/23 13:06 Oxygen Delivery Method Room Air 03/28/23 13:06 BMI result Body Mass Index 38.3 Const General: cooperative, healthy appearing, comfortable, no acute distress, well developed and alert Nutritional Appearance: obese Orientation/consciousness: patient oriented x3 Limitations: no limitations HEENT Head: Yes normal to inspection, Yes normocephalic and Yes atraumatic Ears: hearing grossly normal bilaterally and external ears normal Eyes General: appearance normal, both eyes and all related structures Eyelids: Yes eyelids normal Sclerae: sclerae normal EOM: EOMs intact bilaterally Neck Neck: Yes normal visual inspection and Yes no lymphadenopathy Lymphatic: no lymphadenopathy noted Chest Chest palpation & inspection: normal inspection of the chest Resp Effort & Inspection: normal respiratory effort, able to speak in complete sentences, no audible wheezes, no cough, no stridor, not tachypneic, no tripod positioning and no use of accessory muscles Auscultation: clear to auscultation bilaterally Cardio Jugular venous distension: no JVD Rate: regular rate Rhythm: regular rhythm Skin Other: warm, dry General skin exam: no rashes or lesions noted Neuro General: patient oriented x3 Cranial nerves: Yes Normal hearing present Cognition (Neuro): normal cognition Gait exam (Neuro): Normal gait present Extrem General: Yes normal to inspection, Yes capillary refill normal, Yes no clubbing, cyanosis or edema and Yes no pedal edema Psych Appearance: grossly normal and well kempt Speech and movement: Normal speech and movement present and Clear speech present Affect: normal affect Attitude: cooperative Thought process: Normal thought process present Thought content: Normal thought content present Insight: Good insight present (Psych) Judgement: Good judgement present (Psych) Office Procedures Spirometry Testing Spirometry Comments: Spirometry done in the office, provider has the results results scanned to his chart. 13814- Spirometry Results Reviewed Results Reviewed: Assessment & Plan Assessment & Plan (1) Pre-op evaluation: Code(s): Z01.818 - Encounter for other preprocedural examination (2) Sleep apnea: Code(s): G47.30 - Sleep apnea, unspecified Plan Alden presents for pulmonary preoperative evaluation, as he has severe RON. Compliance report for BiPAP therapy reveals inconsistent use which patient reports issues with mask and humidity. Report above. Advised patient to trial full face mask and increase humidity. Spirometry performed in office today which did not reveal any obstructive or restrictive defects. He currently denies any respiratory concerns and no wheezing is appreciated on exam. At this time, Alden is a low risk for perioperative complications for proposed right rotator cuff surgery scheduled for tomorrow with Dr. Black. Consider extubating to BiPAP. All questions were answered and patient is in agreement of plan. Orders: Orders AMB Spirometry Testing Today Z01.818 - Encounter for other preprocedural examination Coding Level of Care Code Est Pt Level 4 (25579) Diagnoses Pre-op evaluation Z01.818 Sleep apnea G47.30 CPT Codes Spirometry - CPT: 74953- Spirometry ([id number])
[2023-03-28 13:06] VITALS: BP 128/68; PULSE 73; O2SAT 98; BMI 38.3
== END 2023-03-28 14:05 | disposition home or self-care (01) ==
PROVIDERS: PCP Nurse Practitioner Family; Visit Provider Nurse Practitioner Family
DX: Z01.818 Encounter for other preprocedural examination (principal); G47.33 Obstructive sleep apnea (adult) (pediatric)
CPT/HCPCS: 94010; 99214

== ENCOUNTER → 2023-03-28 13:03 | Outpatient (BNVA) | payer OTHER, SELFPAY | PROVIDERS: PCP Nurse Practitioner Family; Visit Provider Nurse Practitioner Family | DX: Z01.818 Encounter for other preprocedural examination (principal); G47.30 Sleep apnea, unspecified | CPT/HCPCS: 94010; 99212 ==

== ENCOUNTER 2023-03-29 09:03 | Day surgery (SDC) | payer OTHER, SELFPAY ==
[2023-03-24 15:40] VITALS: BMI 38.7
[2023-03-24 16:30] VITALS: BMI 38.5
--- NOTE | 2023-03-28 09:17 | HO.ANESPROP2 ---
Documented by User: Gayla Bee NP 03/28/23 09:20 HPI - Anesthesia Eval Consult details Narrative: 57yo M for Right Arthroscopic Rotator Cuff Repair Medically optimized PMF Active Problems Active Problems: All Active Problems (Updated 03/08/23 @ 12:24 by Romulo Ball, [facility]) Pre-op evaluation (Acute) Labral tear of long head of right biceps tendon (Acute) Rotator cuff tear, right (Acute) Rotator cuff arthropathy of right shoulder (Acute) History of arthroscopy of right shoulder (Acute) Osteoarthritis of right shoulder (Acute) Uncontrolled diabetes mellitus (Acute) Dyslipidemia (Acute) Right hand pain (Acute) Numbness and tingling in right hand (Acute) Carpal tunnel syndrome of right wrist (Acute) Stiffness of right hand, not elsewhere classified (Acute) Distal radius fracture, left (Acute) Screening PSA (prostate specific antigen) (Acute) Hyperkalemia (Acute) Right shoulder pain (Acute) Barretts esophagus (Acute) Diabetes mellitus (Acute) Glenohumeral arthritis (Acute) Acromioclavicular joint arthritis (Acute) Painful arc syndrome of right shoulder (Acute) Cough (Acute) Positive colorectal cancer screening using Cologuard test (Acute) Poor historian (Acute) Hypertension (Acute) Parasomnia (Acute) Smoker (Acute) Sleep apnea (Acute) Past Medical History Medical History Acid reflux CHF (congestive heart failure) Diabetes Dysplastic colon polyp High cholesterol Hypertension Parasomnia Sleep apnea Smoker Family History Family History Mother No problems noted. Father No problems noted. Family history of problems with anesthesia: No Surgical History Surgical History H/O colonoscopy H/O resection of small bowel History of colon resection History of esophagogastroduodenoscopy (EGD) Hx of rotator cuff surgery History of Problems with Anesthesia: No Social History Social History (Updated 03/28/23 @ 13:13 by Zoraida Ramirez LPN) Housing: Apartment Housing Other:: mobile home Are you a primary caretaker to a significant other at home: No Do you presently have visiting nurse or other home services: No Alcohol intake: current Alcohol intake frequency: does not drink Patient Tobacco Use Status: Current everyday Tobacco user Tobacco use type: Cigarette and Cigar Cigarette Packs Per Day: 0.5 Cigarettes Per Day: 5 Years Smoked: 35+ Smoked in Last 30 Days: Yes e-Cigarette/Vaping Use: Never Used Second Hand Smoke Exposure: No Use of substances other than those prescribed or required for medical reasons: Yes Substance Use Type: Marijuana Substance Use Frequency: Occasionally Have you been hit, kicked, punched, or otherwise hurt by someone within the past year? If so, by whom?: No Are you DNR?: No Advance Directives: No Advance Directives Information Provided: Yes Advance Directives on File: No Recently lost weight without trying: No Nutrition Risks: No Nutritional Risk Current occupational status: unemployed Current occupation: left handed Cognitive needs: No Hearing needs: No Vision needs: No Meds Allergies Allergy/AdvReac Type Severity Reaction Status Date / Time adhesive tape Allergy Intermediate Rash Verified 03/28/23 13:11 codeine [Tylenol-Codeine #3] Allergy Intermediate Rash Verified 03/28/23 13:11 hydrocodone [Vicodin] Allergy Intermediate confusion/does Verified 03/28/23 13:11 not relieve pain morphine Allergy Intermediate rash Verified 03/28/23 13:11 diphenhydramine AdvReac Intermediate Itching Verified 03/28/23 13:11 [From Benadryl] Exam Exam Date and Time: March 28, 2023 0917 Height,Weight and Vital Signs: Height 5 ft 7 in Weight 111.584 kg Pertinent Lab Results Pertinent Lab Results: Laboratory Tests 02/03/23 02/03/23 02/13/23 10:19 10:19 10:33 WBC 9.9 Hgb 17.9 Hct 53.1 H Plt Count 240 Sodium 138 Potassium 4.8 Chloride 100 Carbon Dioxide 24 BUN 13 Creatinine 0.92 Narrative Narrative: EKG 02/2023 NSR @ 78 RBBB (old) Assessment and Plan Assessment Anesthesia Assessment: Chart Reviewed Final Anesthetic Review Family History of Problems with Anesthesia: No History of Problems with Anesthesia: No Documented by User: Pankaj Grier MD 03/29/23 10:44 [facility] Past Medical History Medical History Acid reflux CHF (congestive heart failure) Diabetes Dysplastic colon polyp High cholesterol Hypertension Parasomnia Sleep apnea Smoker Family History Family History Mother No problems noted. Father No problems noted. Surgical History Surgical History H/O colonoscopy H/O resection of small bowel History of colon resection History of esophagogastroduodenoscopy (EGD) Hx of rotator cuff surgery Social History Social History (Updated 03/28/23 @ 13:13 by Zoraida Ramirez LPN) Housing: Apartment Housing Other:: mobile home Are you a primary caretaker to a significant other at home: No Do you presently have visiting nurse or other home services: No Alcohol intake: current Alcohol intake frequency: does not drink Patient Tobacco Use Status: Current everyday Tobacco user Tobacco use type: Cigarette and Cigar Cigarette Packs Per Day: 0.5 Cigarettes Per Day: 5 Years Smoked: 35+ Smoked in Last 30 Days: Yes e-Cigarette/Vaping Use: Never Used Second Hand Smoke Exposure: No Use of substances other than those prescribed or required for medical reasons: Yes Substance Use Type: Marijuana Substance Use Frequency: Occasionally Have you been hit, kicked, punched, or otherwise hurt by someone within the past year? If so, by whom?: No Are you DNR?: No Advance Directives: No Advance Directives Information Provided: Yes Advance Directives on File: No Recently lost weight without trying: No Nutrition Risks: No Nutritional Risk Current occupational status: unemployed Current occupation: left handed Cognitive needs: No Hearing needs: No Vision needs: No Meds Allergies Allergy/AdvReac Type Severity Reaction Status Date / Time adhesive tape Allergy Intermediate Rash Verified 03/28/23 13:11 codeine [Tylenol-Codeine #3] Allergy Intermediate Rash Verified 03/28/23 13:11 hydrocodone [Vicodin] Allergy Intermediate confusion/does Verified 03/28/23 13:11 not relieve pain morphine Allergy Intermediate rash Verified 03/28/23 13:11 diphenhydramine AdvReac Intermediate Itching Verified 03/28/23 13:11 [From Benadryl] Exam Airway Mallampati Class: III TM Dist: >3cm Neck ROM: Poor Loose/Missing/Broken Teeth: Yes and Upper Heart: rrr Lungs: cta Assessment and Plan Assessment Anesthesia Assessment: Anesthesia Plan Discussed and Smoking Cess. Discussed Final Anesthetic Review NPO: Yes ASA Class: III Final Preanesthetic Review: No Changes in Pt Med Stat, Meds/Allgs Chart Reviewed, Consent Obtained/Reviewed and Anes Risks/Benef Reviewed Patient Risk: High Procedure Risk: Intermediate Anesthetic Plan Anesthetic Plan: GA and Regional Block Disposition: Standard PACU
[2023-03-29] VITALS (8 sets, daily range): BP systolic 128–148; BP diastolic 51–76; PULSE 71–90; RESP 16–20; TEMP 36–36.6; O2SAT 92–98
[2023-03-29 09:27] LABS: Glucose, Whole Blood 138 mg/dL (60-115)
[2023-03-29] MEDS: Lactated Ringers 1,000 ML 50 ML IVCONT (09:55)
--- NOTE | 2023-03-29 09:58 | PC.NURSE ---
IV inserted into LEFT hand, error in documentation, unable to edit. Correct IV site is LEFT hand
--- NOTE | 2023-03-29 11:42 | MHC.SHP ---
Pre-Procedural Eval Section A Date of Service: 03/29/23 The patient is an INPATIENT: No Changes since office visit: No Cold of Flu in the past 2 weeks, No New Medical Problems, No Changes in Medication and No Patient answered all questions The History & Physical has been completed within 30 days and I have reviewed it.: Yes Section B Chief Complaint: Unspecified rotator cuff tear or rupture of right Allergies: Allergies Allergy/AdvReac Type Severity Reaction Status Date / Time adhesive tape Allergy Intermediate Rash Verified 03/28/23 13:11 codeine [Tylenol-Codeine #3] Allergy Intermediate Rash Verified 03/28/23 13:11 hydrocodone [Vicodin] Allergy Intermediate confusion/does Verified 03/28/23 13:11 not relieve pain morphine Allergy Intermediate rash Verified 03/28/23 13:11 diphenhydramine AdvReac Intermediate Itching Verified 03/28/23 13:11 [From Benadryl] Plan I have reviewed the history and physical and performed a pertinent physical examination on my patient. No changes have occurred unless specified. Time Spent With Patient Time: Total time managing care of this patient today ____ minutes.
--- NOTE | 2023-03-29 14:12 | P.BOP_ITS ---
Brief Operative Note Date of Service: 03/29/23 Pre-op diagnosis: right rtc tear Post-op diagnosis: same Procedure: Right rtc repair with dermal bio-inductive collagen Implants: Bowser and Nephew helacoil x 4 and large bio-inductive collagen implant Surgeon: Cuba Black MD Anesthesia: GETA and regional Was an Senior Benefits Specialist used for this Procedure?: Yes Senior Benefits Specialist: Ritika Botello Estimated blood loss (mL): 20 IV fluids (mL): 1,000 Pathology: none sent Condition: stable Disposition: PACU
[2023-03-29] MEDS: HYDROmorphone HCl 0.5 MG/0.5 ML SYRINGE 0.25 MG IVPUSH (14:50)
--- NOTE | 2023-03-31 15:42 | P.OP_ITS ---
Operative Note Operative Note Date of Service: 03/29/23 Narrative: Date of Service: 03/29/23 Pre-op diagnosis: right rtc tear Post-op diagnosis: same Procedure: Right rtc repair with dermal bio-inductive collagen Implants: Bowser [employer] Nephew helacoil x 4 and large bio-inductive collagen implant Surgeon: Cuba Black MD Anesthesia: GETA and regional Was an Material Handling Crew Supervisor used for this Procedure?: Yes Material Handling Crew Supervisor: Ritika Botello Estimated blood loss (mL): 20 IV fluids (mL): 1,000 Pathology: none sent Condition: stable Disposition: PACU Procedure in detail: Patient was brought to the operating room and placed the the beach chair position. All bony prominences were well padded and the limb was prepped and draped in standard sterile fashion. A time out was called to identify proper site, proper procedure and proper surgeon. IV antibiotics per weight were administered. I began by making a posterolateral stab incision with a 15 blade. A blunt trochar was placed into the glenohumeral joint and I insufflated the joint with saline and a 30 degree arthroscope was placed. I established an outside- in anterior portal just distal to the biceps tendon. I then began my inspection of the glenohumeral joint. There was 75% of the biceps that was torn at the labral anchor with associated degenerative tearing of the labrum circumferentially with G2 change at the inferior glenoid with a focal 1.5 x 1.5 cm area of full thickness chondral loss on the humeral head. There was a full thickness undersurface RTC tear with evidence of prior surgery with multiple sutures present.. The subcapularis was intact. I debrdied the loose cartilage of the glenoid and the degenerative labral tearing and perfomred a biceps tenotomy. I then removed the trochar and entered the subacromial space. A direct lateral portal was then established and I performed a bursectomy. The cuff was then examined. The loose suture and multiple suture knots were removed and the cuff tear was examined. the tissue was of poor quality and there was posterior and medial retraction to the level of the humeral articular cartilage. I released anteriorly with the electrocautery and shaver and then placed 2 medial row double loaded Helacoil suture anchors. A scorpion was used to pass the sutures through the ehalthy portions of the tissue and then these were brought to two lateral anchors. I had posterior reproduction of the normal anatomy but anteriorly there was tension. I reapproximated the cuff as best as possible without tension. The suprospinatus anteriorly reached the medial bare area. The shoulder was ranged and the repair was stable. Because of the nature of the tear and the quality of the tissue I placed a large Regeneten over the repair and bone anchors were used laterally and PEEK james medially. Once I was satisfied with the repair final images were captured and I removed all instrumentation. Portals were closed with nylon. Patient was placed in an abduction sling, extubated and brought to the recovery room in stable condition. There were no known complications.
== END 2023-03-29 15:50 | disposition home or self-care (01) ==
PROVIDERS: PCP Nurse Practitioner Family; Visit Provider Orthopaedic Surgery
PROC: (CPT 29827; principal; 2023-03-29 11:20)
DX: M75.101 Unspecified rotator cuff tear or rupture of right shoulder, not specified as traumatic (principal); E11.9 Type 2 diabetes mellitus without complications; I10 Essential (primary) hypertension; E78.5 Hyperlipidemia, unspecified; F17.210 Nicotine dependence, cigarettes, uncomplicated; Z79.4 Long term (current) use of insulin; Z79.899 Other long term (current) drug therapy
CPT/HCPCS: 29827; 29828; 82947; C1713; C1781; J0131; J0171; J0690; J1100; J1170; J1885; J2370; J2371; J2405; J2795

== ENCOUNTER → 2023-03-29 09:03 | Outpatient (BNV) | payer OTHER, SELFPAY | PROVIDERS: PCP Nurse Practitioner Family; Visit Provider Orthopaedic Surgery | DX: S46.011A Strain of muscle(s) and tendon(s) of the rotator cuff of right shoulder, initial encounter (principal) | CPT/HCPCS: 29827 ==

== ENCOUNTER 2023-04-03 11:08 | Outpatient (AMB) | payer OTHER, SELFPAY ==
--- NOTE | 2023-04-03 11:14 | A.OFFVIS_ITS ---
Intake Intake Visit Reasons: PO RT RTC repair 03/29/23NE Intake Note: Alden a 57 year old male who presents today for a post operative right RTC repair on 03/29/23 NE. Patient reports having unbearable pain with a pain level 8 out of 10. He states not able to remove sling with out having pain. Allergies adhesive tape Allergy (Intermediate, Verified 04/03/23 11:20) Rash codeine [Tylenol-Codeine #3] Allergy (Intermediate, Verified 04/03/23 11:20) Rash hydrocodone [Vicodin] Allergy (Intermediate, Verified 04/03/23 11:20) confusion/does not relieve pain morphine Allergy (Intermediate, Verified 04/03/23 11:20) rash diphenhydramine [From Benadryl] Adverse Reaction (Intermediate, Verified 04/03/23 11:20) Itching HPI PO RT RTC repair 03/29/23NE HPI Details 57-year-old male who presents in the office today 5 days status post right rotator cuff repair with dermal bio-inductive collagen, which was perf ormed on 03/29/[address] Black. The patient claims he is having unbearable pain, with a rating of 8-10 while in the office today. She states he is unable to remove the sling without having pain. PFSH Medical History Acid reflux CHF (congestive heart failure) Diabetes Dysplastic colon polyp High cholesterol Hypertension Parasomnia Sleep apnea Smoker Surgical History H/O colonoscopy H/O resection of small bowel History of colon resection History of esophagogastroduodenoscopy (EGD) Hx of rotator cuff surgery Family History Mother No problems noted. Father No problems noted. Social History Housing: Apartment Housing Other:: mobile home Are you a primary intensive care ambulance paramedic to a significant other at home: No Do you presently have visiting nurse or other home services: No Alcohol intake: current Alcohol intake frequency: does not drink Patient Tobacco Use Status: Current everyday Tobacco user Tobacco use type: Cigarette and Cigar Cigarette Packs Per Day: 0.5 Cigarettes Per Day: 5 Years Smoked: 35+ e-Cigarette/Vaping Use: Never Used Second Hand Smoke Exposure: No Substance Use Type: Marijuana Current occupational status: unemployed Current occupation: left handed Cognitive needs: No Hearing needs: No Vision needs: No Review of Systems Const All systems reviewed & are unremarkable except as noted in HPI and below Physical Exam Const General: cooperative and no acute distress Orientation/consciousness: patient oriented x3 Resp Effort & Inspection: normal respiratory effort and able to speak in complete sentences Cardio Peripheral pulses: Peripheral pulses 2+ throughout Neuro General: patient oriented x3 Extrem Other: Right shoulder: Incisions sites are clean, dry, and intact. Sutures intact. Forward flexion and abduction to 45 degrees. External rotation to neutral. NVI. Psych Mental Status: mental status grossly normal Assessment & Plan Assessment & Plan (1) Uncontrolled diabetes mellitus: Code(s): E11.65 - Type 2 diabetes mellitus with hyperglycemia (2) History of arthroscopy of right shoulder: Code(s): Z98.890 - Other specified postprocedural states (3) Rotator cuff tear, right: Code(s): M75.101 - Unspecified rotator cuff tear or rupture of right shoulder, not specified as traumatic (4) Labral tear of long head of right biceps tendon: Code(s): S46.111A - Strain of muscle, fascia and tendon of long head of biceps, right arm, initial encounter Plan Mr. Green is a 57-year-old male who presents in the office today 5 days status post right rotator cuff repair with dermal bio-inductive collagen patch, which was performed on 03/29/[address] Black. The patient claims he is having unbearable pain, with a rating of 8-10 while in the office today. She states he is unable to remove the sling without having pain. Suture were removed and steri-stripes were applied. The patient will remain in the sling at all times. He will continue to work with physical therapy. A refill of Percocet 10-325 mg PO Q4-6H PRN was sent to the pharmacy, due to the patient having issues with pain management. Follow up will be in [address] Black, or sooner if needed. Medications: New oxycodone-acetaminophen 10-325 mg Partial Fill upon patient request. 1 tab PO Q4-6H PRN 42 tabs 0RF pain Patient Instructions: Scribed for Ritika Botello PA-C by Nicole Azul medical representative, on 04/03/2023 at 11:10 am, EST. Your attestation Coding Level of Care Code Global (92477) Diagnoses Uncontrolled diabetes mellitus E11.65 History of arthroscopy of right shoulder Z98.890 Rotator cuff tear, right M75.101 Labral tear of long head of right biceps tendon S46.111A
== END 2023-04-03 11:55 | disposition home or self-care (01) ==
PROVIDERS: Visit Provider Physician Assistant
DX: S46.011A Strain of muscle(s) and tendon(s) of the rotator cuff of right shoulder, initial encounter (principal)
CPT/HCPCS: 99024

== ENCOUNTER → 2023-04-03 11:08 | Outpatient (BNVA) | payer OTHER, SELFPAY | PROVIDERS: Visit Provider Physician Assistant ==

== ENCOUNTER 2023-05-25 14:39 | Outpatient (AMB) | payer OTHER, SELFPAY ==
--- NOTE | 2023-05-25 14:47 | MHC.OFFVIS ---
Intake Intake Visit Reasons: PO RT RTC repair 03/29/23NE Intake Note: Alden is a 57 year old left hand dominant male who presents today for a post operative appointment s/p right RTC repair on 03/29/23 NE. Patient reports that his shoulder is feeling better and he has no concerns. He is still working with physical therapy twice a week. Allergies adhesive tape Allergy (Intermediate, Verified 05/25/23 14:59) Rash codeine [Tylenol-Codeine #3] Allergy (Intermediate, Verified 05/25/23 14:59) Rash hydrocodone [Vicodin] Allergy (Intermediate, Verified 05/25/23 14:59) confusion/does not relieve pain morphine Allergy (Intermediate, Verified 05/25/23 14:59) rash diphenhydramine [From Benadryl] Adverse Reaction (Intermediate, Verified 05/25/23 14:59) Itching HPI PO RT RTC repair 03/29/23NE HPI Details 6 weeks s/p right RTC repair. Doing well PFSH Medical History Acid reflux CHF (congestive heart failure) Diabetes Dysplastic colon polyp High cholesterol Hypertension Parasomnia Sleep apnea Smoker Surgical History H/O colonoscopy H/O resection of small bowel History of colon resection History of esophagogastroduodenoscopy (EGD) Hx of rotator cuff surgery Family History Mother No problems noted. Father No problems noted. Social History Housing: Apartment Housing Other:: mobile home Are you a primary client care consultant to a significant other at home: No Do you presently have visiting nurse or other home services: No Alcohol intake: current Alcohol intake frequency: does not drink Patient Tobacco Use Status: Current everyday Tobacco user Tobacco use type: Cigarette and Cigar Cigarette Packs Per Day: 0.5 Cigarettes Per Day: 5 Years Smoked: 35+ e-Cigarette/Vaping Use: Never Used Second Hand Smoke Exposure: No Substance Use Type: Marijuana Current occupational status: unemployed Current occupation: left handed Cognitive needs: No Hearing needs: No Vision needs: No Physical Exam Extrem Other: aROM: 90/120/40/L5 portals well healed Assessment & Plan Assessment & Plan (1) S/P right rotator cuff repair: Code(s): Z98.890 - Other specified postprocedural states Plan: Doing very well No lifting D/c Sling f/u 6 weeks Medications: New ibuprofen 800 mg PO TID PRN 90 tabs 0RF pain Coding Level of Care Code Global (97167) Diagnoses S/P right rotator cuff repair Z98.890
== END 2023-05-25 15:12 | disposition home or self-care (01) ==
PROVIDERS: PCP Nurse Practitioner Family; Visit Provider Orthopaedic Surgery
DX: Z98.890 Other specified postprocedural states (principal)
CPT/HCPCS: 99024

== ENCOUNTER → 2023-05-25 14:39 | Outpatient (BNVA) | payer OTHER, SELFPAY | PROVIDERS: PCP Nurse Practitioner Family; Visit Provider Orthopaedic Surgery ==

== ENCOUNTER 2023-05-29 13:42 | Outpatient (AMB) | payer OTHER, SELFPAY ==
--- NOTE | 2023-05-29 14:21 | MHC.OFFWIV ---
Intake Vital Signs 05/29/23 14:28 Height 5 ft 10 in Weight 237 lb BMI 34.0 BP 140/80 H Blood Pressure Location Rt brachial Position Sitting Pulse 88 Pulse Source Pulse Oximeter Temp 98.7 F Temp Source Temporal Artery Scan Pulse Oximetry (%) 97 Intake Visit Reasons: EST/hole in right foot big toe Intake Note: pt is here for c/o hole in right foot big toe, patient is diabetic and does not follow endo, hasnt been seen by pcp in awhile also Patient Tobacco Use Status: Current everyday Tobacco user Allergies adhesive tape Allergy (Intermediate, Verified 05/29/23 15:02) Rash codeine [Tylenol-Codeine #3] Allergy (Intermediate, Verified 05/29/23 15:02) Rash hydrocodone [Vicodin] Allergy (Intermediate, Verified 05/29/23 15:02) confusion/does not relieve pain morphine Allergy (Intermediate, Verified 05/29/23 15:02) rash diphenhydramine [From Benadryl] Adverse Reaction (Intermediate, Verified 05/29/23 15:02) Itching Medication List - Last Reconciled 05/29/23 by Daniel Thompson MD albuterol sulfate 90 mcg/actuation (Ventolin HFA) 2 puffs PO Q4-6H PRN blood sugar diagnostic (FreeStyle Lite Strips) 1 strip miscellaneous TID blood-glucose meter (FreeStyle Lite Meter kit) check sugar twice a day cephalexin 500 mg PO BID docusate sodium (Colace) 200 mg (2 x 100 mg) PO BEDTIME dulaglutide 4.5 mg (0.5 mL) subcut QWEEK fluticasone propionate 50 mcg/actuation (Flonase Allergy Relief) 1 spray intranasal DAILY 30 days gemfibrozil 600 mg PO DAILY 90 days ibuprofen 800 mg PO TID PRN insulin detemir U-100 62 units (0.62 mL) subcut BID lancets (FreeStyle Lancets) check sugar three times a day lisinopril 10 mg PO DAILY 90 days metformin 1,000 mg PO BID 90 days morphine ER (MS Contin) 15 mg PO Q12H 3 days omeprazole 20 mg PO DAILY 90 days oxycodone-acetaminophen 10-325 mg 1 tab PO Q4-6H PRN oxycodone-acetaminophen 5-325 mg (Percocet) 1 tab PO Q6H PRN 7 days pen needle, diabetic (BD Ultra-Fine Short Pen Needle) twice a day rosuvastatin (Crestor) 40 mg PO DAILY 90 days Do you need a note to return to daycare/school/sports/work: Yes HPI EST/hole in right foot big toe HPI Details 57-year-old male presents to the office for a sick visit. Patient is reporting that he picked on the undersurface of his toe and now there is a gaping wound over there. He is diabetic with very poor control of sugar. PFSH Medical History Acid reflux CHF (congestive heart failure) Diabetes Dysplastic colon polyp High cholesterol Hypertension Parasomnia Sleep apnea Smoker Surgical History H/O colonoscopy H/O resection of small bowel History of colon resection History of esophagogastroduodenoscopy (EGD) Hx of rotator cuff surgery Family History Mother No problems noted. Father No problems noted. Social History Housing: Apartment Housing Other:: mobile home Are you a primary animal care giver to a significant other at home: No Do you presently have visiting nurse or other home services: No Alcohol intake: current Alcohol intake frequency: does not drink Patient Tobacco Use Status: Current everyday Tobacco user Tobacco use type: Cigarette and Cigar Cigarette Packs Per Day: 0.5 Cigarettes Per Day: 5 Years Smoked: 35+ e-Cigarette/Vaping Use: Never Used Second Hand Smoke Exposure: No Substance Use Type: Marijuana Current occupational status: unemployed Current occupation: left handed Cognitive needs: No Hearing needs: No Vision needs: No Physical Exam Vital Signs: Last Vital Signs Temp 98.7 F 05/29/23 14:28 Pulse 88 05/29/23 14:28 BP 140/80 H 05/29/23 14:28 Pulse Ox 97 05/29/23 14:28 BMI result Body Mass Index 34.0 Extrem Other: Right foot: Foul-smelling wound at the base of the great toe. There is a gaping hole with loss of subcutaneous tissue. Assessment & Plan Assessment & Plan (1) Diabetic ulcer of right foot: Code(s): E11.621 - Type 2 diabetes mellitus with foot ulcer; L97.519 - Non-pressure chronic ulcer of other part of right foot with unspecified severity Plan: Antibiotics called in. Wound clinic appointment made. If symptoms are worsening to follow-up here. Orders: Referrals Wound Care Referral E11.621 - Type 2 diabetes mellitus with foot ulcer, L97.519 - Non-pressure chronic ulcer of other part of right foot with unspecified severity Medications: New cephalexin 500 mg PO BID 14 caps 0RF Coding Level of Care Code Est Pt Level 3 (58734) Diagnoses Diabetic ulcer of right foot E11.621; L97.519
[2023-05-29 14:28] VITALS: BP 140/80; PULSE 88; TEMP 37.1; O2SAT 97; BMI 34.0
== END 2023-05-29 15:20 | disposition home or self-care (01) ==
PROVIDERS: PCP Nurse Practitioner Family; Visit Provider Internal Medicine
DX: E11.621 Type 2 diabetes mellitus with foot ulcer (principal); L97.519 Non-pressure chronic ulcer of other part of right foot with unspecified severity
CPT/HCPCS: 99213

== ENCOUNTER 2023-06-06 09:46 | Outpatient (RCR) | payer OTHER, SELFPAY ==
--- NOTE | ~2023-06-06 | XR_ITS ---
EXAMINATION: XR FOOT, RIGHT CLINICAL INFORMATION: Nonhealing wound great toe. COMPARISON: None available. TECHNIQUE: AP, lateral, and oblique views of the right foot. FINDINGS: Diffuse soft tissue swelling which is slightly more prominent and focal surrounding the first toe. No focal erosive changes or destructive changes to suspect osteomyelitis by radiograph. No fracture or malalignment. Moderate multifocal degenerative osteoarthritis. Scattered vascular calcifications. XR/XR foot RT min 3V IMPRESSION: No radiographic evidence of osteomyelitis. However, early osteomyelitis can be radiographically occult, and if indicated correlation with an MR could be obtained.
== END 2023-10-16 17:00 | disposition home or self-care (01) ==
LOC: HO.WCC 09:46
PROVIDERS: PCP Nurse Practitioner Family; Visit Provider Physician Assistant
DX: Z09 Encounter for follow-up examination after completed treatment for conditions other than malignant neoplasm (principal); E11.51 Type 2 diabetes mellitus with diabetic peripheral angiopathy without gangrene; R60.0 Localized edema; E11.40 Type 2 diabetes mellitus with diabetic neuropathy, unspecified; I11.0 Hypertensive heart disease with heart failure; I50.9 Heart failure, unspecified; F17.210 Nicotine dependence, cigarettes, uncomplicated; Z87.2 Personal history of diseases of the skin and subcutaneous tissue
CPT/HCPCS: 11042; 73630; 97597; 99212

== ENCOUNTER 2023-06-12 12:51 | Outpatient (AMB) | payer OTHER, SELFPAY ==
--- NOTE | 2023-06-12 13:03 | A.OFFPC_ITS ---
Vital Signs 06/12/23 13:04 Height 5 ft 10 in Weight 234 lb BMI 33.6 BP 138/82 Blood Pressure Location Rt brachial Position Sitting Pulse 94 Pulse Source Pulse Oximeter Pulse Oximetry (%) 98 Oxygen Delivery Method Room Air Intake Visit Reasons: 3m follow up Allergies adhesive tape Allergy (Intermediate, Verified 06/12/23 15:50) Rash codeine [Tylenol-Codeine #3] Allergy (Intermediate, Verified 06/12/23 15:50) Rash hydrocodone [Vicodin] Allergy (Intermediate, Verified 06/12/23 15:50) confusion/does not relieve pain morphine Allergy (Intermediate, Verified 06/12/23 15:50) rash diphenhydramine [From Benadryl] Adverse Reaction (Intermediate, Verified 06/12/23 15:50) Itching Medication List - Last Reconciled 06/12/23 by Romulo Ball, [employer]- albuterol sulfate 90 mcg/actuation (Ventolin HFA) 2 puffs PO Q4-6H PRN blood sugar diagnostic (FreeStyle Lite Strips) 1 strip miscellaneous TID blood-glucose meter (FreeStyle Lite Meter kit) check sugar twice a day dulaglutide 4.5 mg (0.5 mL) subcut QWEEK fluticasone propionate 50 mcg/actuation (Flonase Allergy Relief) 1 spray intranasal DAILY 30 days gemfibrozil 600 mg PO DAILY 90 days ibuprofen 800 mg PO TID PRN insulin detemir U-100 62 units (0.62 mL) subcut BID lancets (FreeStyle Lancets) check sugar three times a day lisinopril 10 mg PO DAILY 90 days metformin 1,000 mg PO BID 90 days omeprazole 20 mg PO DAILY 90 days pen needle, diabetic (BD Ultra-Fine Short Pen Needle) twice a day rosuvastatin (Crestor) 40 mg PO DAILY 90 days Tobacco use date assessed: 06/12/23 Dental Screening Dental Screen Date: 06/12/23 Did you have a dental visit in the last 12 months?: No Did you have a dental problem in the last 6 months where you did not have access to dental care?: No Was dental information given to patient?: No HPI 3m follow up HPI Details Pt is a diabetic, on an MIKEY and a statin. A1C in office today is 9.1. Due for microalbumin, will order. Denies polyuria and polydipsia, does report neuropathy. Pt denies any signs and symptoms of hypoglycemia and does know how to correct it. Will start glipizide 2.5mg. Explained to pt that he needs to work on his diet. Pt is following up with wound care due to an ulceration to the plantar aspect of his right big toe. He last saw them this morning. Pt has been a PPD smoker since age 15. Will refer for low-dose CT. [facility] Medical History (Updated 06/12/23 @ 13:24 by BRAEDEN Clements) Diabetes Dysplastic colon polyp Parasomnia Smoker CHF (congestive heart failure) Sleep apnea High cholesterol Hypertension Acid reflux Surgical History History of esophagogastroduodenoscopy (EGD) H/O colonoscopy Hx of rotator cuff surgery H/O resection of small bowel History of colon resection Family History Mother No problems noted. Father No problems noted. Social History Housing: Apartment Housing Other:: mobile home Are you a primary rn transitional care to a significant other at home: No Do you presently have visiting nurse or other home services: No Alcohol intake: current Alcohol intake frequency: does not drink Patient Tobacco Use Status: Current everyday Tobacco user Tobacco use type: Cigarette and Cigar Cigarette Packs Per Day: 0.5 Cigarettes Per Day: 5 Years Smoked: 35+ e-Cigarette/Vaping Use: Never Used Second Hand Smoke Exposure: No Substance Use Type: Marijuana Current occupational status: unemployed Current occupation: left handed Cognitive needs: No Hearing needs: No Vision needs: No Questionnaire Thrive Questionnaire Date Thrive assessed: 04/15/21 Review of Systems Const Reports as per HPI Physical exam (Primary Care) Vital Signs: Last Vital Signs Pulse 94 06/12/23 13:04 BP 138/82 06/12/23 13:04 Pulse Ox 98 06/12/23 13:04 Oxygen Delivery Method Room Air 06/12/23 13:04 BMI result Body Mass Index 33.6 Tobacco/Smoking Status: Tobacco use Status Tobacco use date assessed 06/12/23 06/12/23 13:11 Patient Tobacco Use Status Current everyday Tobacco 06/12/23 13:11 Tobacco use type Cigarette,Cigar 06/12/23 13:11 e-Cigarette/Vaping Use Never Used 06/12/23 13:11 Thrive Assessment: Date of Thrive Assessment Date Thrive assessed 04/15/21 06/12/23 13:11 Const General: cooperative Resp Effort & Inspection: normal respiratory effort Auscultation: clear to auscultation bilaterally (slightly dim bilat ) Cardio Rate: regular rate Rhythm: regular rhythm Heart sounds: S1 normal heart sound present, S2 normal heart sound present and Murmur heart sound present Extrem Other: right big toe plantar aspect with ulceration, dressing CDI, minimal sensation with use of monofilament to right foot, + sensation to left foot, weak dorsalis pedis pulse to right foot Psych Appearance: grossly normal Mental Status: mental status grossly normal Speech and movement: Normal speech and movement present Affect: normal affect Thought process: Normal thought process present Thought content: Normal thought content present Insight: Good insight present (Psych) Judgement: Good judgement present (Psych) Results AMB Hemoglobin A1c AMB Hemoglobin A1c 9.1 % Last Edit by Martha Rand CMA on 06/12/23 13: 33 Results Reviewed Results Reviewed: Laboratory Last Values Hgb A1c (Clinic) 9.1 % (4.0-6.0) H 06/12/23 13:32 Assessment and Plan Assessment & Plan (1) Diabetes: Comment: type 2-dx ~2017-glucose usually ~185-240 Code(s): E11.9 - Type 2 diabetes mellitus without complications Plan: Labs ordered, glipizide sent (2) PAD (peripheral artery disease): Code(s): I73.9 - Peripheral vascular disease, unspecified Plan: US ordered (3) Smoker: Code(s): F17.200 - Nicotine dependence, unspecified, uncomplicated Plan: Referred to thoracic Plan The patient agreed to the use of a medical lead for this encounter. Scribed for BRAEDEN Adams by Wen Cote medical lead, on 06/12/2023 at 13:25 EST Orders: Orders TSH reflex Free T4 Today E11.9 - Type 2 diabetes mellitus without complications UA CC w/rflx Micro + Cult Today E11.9 - Type 2 diabetes mellitus without complications Lipid Panel Today E11.9 - Type 2 diabetes mellitus without complications Microalbumin, Random (w Creat) Today E11.9 - Type 2 diabetes mellitus without complications Complete Blood Count Auto Diff Today E11.9 - Type 2 diabetes mellitus without complications Comprehensive [place]. Panel Fast Today E11.9 - Type 2 diabetes mellitus without complications US arterial duplex LE RT Today I73.9 - Peripheral vascular disease, unspecified AMB Hemoglobin A1c Today E11.9 - Type 2 diabetes mellitus without complications Referrals Thoracic Surgery Referral F17.200 - Nicotine dependence, unspecified, uncomplicated Medications: New glipizide ER 2.5 mg PO DAILY 90 days 90 tabs 0RF Coding Level of Care Code Est Pt Level 3 (50007) Diagnoses Diabetes E11.9 PAD (peripheral artery disease) I73.9 Smoker F17.200
[2023-06-12 13:04] VITALS: BP 138/82; PULSE 94; O2SAT 98; BMI 33.6
== END 2023-06-12 13:36 | disposition home or self-care (01) ==
PROVIDERS: PCP Nurse Practitioner Family; Visit Provider Nurse Practitioner Family
DX: E11.51 Type 2 diabetes mellitus with diabetic peripheral angiopathy without gangrene (principal); I73.9 Peripheral vascular disease, unspecified; F17.210 Nicotine dependence, cigarettes, uncomplicated
CPT/HCPCS: 83036; 99213

== ENCOUNTER 2023-06-12 14:00 | Outpatient (RCR) | payer OTHER, SELFPAY ==
[2023-04-24 13:39] VITALS: BP 148/78
--- NOTE | 2023-04-25 09:16 | MHC.PT.EP ---
[facility] [place] [facility] [place] [facility] [place] Office [address] Mellissa Gil [address] [phone] F: [phone] F: [phone] F: [phone] F: [phone] Physical Therapy Plan of Care Date of Evaluation: Date of Surgery: 03/29/23 Diagnosis: Right RTC repair with dermal bio-inductive collagen patch Assessment: Pt is a 77 y/o male with DM, HTN, and a current smoker referred to PT s/p R rotator cuff repair. Pt has difficulty with personal hygiene, ADLs, and reaching for high surfaces secondary to tissue healing, decreased shoulder ROM, decreased shoulder strength, post surgical precautions, and pain. Pt is deemed a good candidate for skilled PT services as he is highly motivated to restore shoulder ROM and return to previous level of function. Frequency and Duration: The patient will be seen 2x/wk x 10wks Short Term Goals: Initiate HEP Improve baseline pain to <4/10: initial 5/10 Quality Controller Goals: [place] with HEP Pt will be able to reach for something on a high shelf: initial 9/10 difficulty Pt will be able to remove something from their back pocket: initial 5/10 difficulty Pt will decrease SPADI outcome measure score by 13 points: initial 98 Treatment Plan: Modalities to reduce pain, spasms and effusion. Manual therapy to restore motion and function. Therapeutic exercise to improve strength and flexibility. Neuromuscular re-education for posture and balance. Therapeutic activities to return to functional activities of daily living. Electronically signed by: Naseem Padilla PT. Please sign and return to therapist. Thank you for your referral.
--- NOTE | 2023-06-23 15:04 | MHC.PT.DC ---
[facility] [place] Office [place] Office [place] Office [address] Mellissa Gil 140 [facility] [phone] F: [phone] F: [phone] F: [phone] F: [phone] Physical Therapy Discharge Report Diagnosis: Right RTC repair with dermal bio-inductive collagen patch Date of Surgery: 03/29/23 Date of Evaluation: 04/24/23 Date of Discharge: 06/23/23 Treatments to Date: 9 Cancellations to Date: No Shows to Date: Discharge Status: Improved Function Independent with HEP Patient Elected to Stop Discharge Summary: Alden, despite largely disregarding his precautions and therapy recommendations for postoperative shoulder care at home achieved significant improvement in his pain, ROM, and strength however he has developed a deep non healing wound of his R great toe which required surgical debridement and follow up care; he called to discharge from therapy to manage this issue. Electronically signed by: Naseem Padilla PT. Please sign and return to therapist. Thank you for your referral.
== END 2023-06-23 15:05 | disposition home or self-care (01) ==
LOC: HO.PTCHIC 14:00
PROVIDERS: PCP Nurse Practitioner Family; Visit Provider Orthopaedic Surgery
DX: Z98.890 Other specified postprocedural states (principal)
CPT/HCPCS: 97110; 97140; 97162

== ENCOUNTER 2023-06-30 09:16 | Outpatient (REF) | payer OTHER, SELFPAY ==
[2023-06-30 11:23] LABS: MANUAL DIFF FLAG NO
[2023-06-30 12:01] LABS: Basophils Absolute Auto 0.1 X10*3/uL (0.0-0.2); Basophils Percent Auto 0.5 % (0-2); Eosinophils Percent Auto 0.2 % (0-4); Hematocrit 49.4 % (42.0-52.0); Hemoglobin 16.5 g/dl (14.0-18.0); Imm Gran Abs Auto 0.04 X10*3/uL (0.00-0.03); Imm Gran Pct Auto 0.4 % (0.0-0.4); Lymphocytes Absolute Auto 1.5 X10*3/uL (1.2-4.9); Lymphocytes Percent Auto 14.7 % (20-40); Mean Corpuscular HGB Conc 33.4 g/dl (31.0-36.0); Mean Corpuscular Volume 95.9 fL (80.0-98.0); Mean Platelet Volume 11.4 fL (9.4-12.4); Monocytes Absolute Auto 0.6 X10*3/uL (0.1-1.2); Monocytes Percent Auto 5.3 % (2-11); Neutrophils Absolute Auto 8.3 x10*3/uL (2.0-8.3); Neutrophils Percent Auto 78.9 % (45-73); Platelet Count 239 X10*3/uL (160-400); Red Blood Count 5.15 X10*6/uL (4.60-5.80); Red Cell Distribution Width 12.6 % (11.0-16.0); White Blood Count 10.5 X10*3/uL (4.8-10.8)
[2023-06-30 12:35] LABS: Alanine Aminotransferase 19 U/L (0-40); Albumin Level 4.4 g/dL (3.5-5.0); Alkaline Phosphatase 80 U/L (39-117); Anion Gap 18 (12-20); Aspartate Amino Transferase 16 U/L (5-37); Bilirubin Total 0.3 mg/dL (0.0-1.0); Blood Urea Nitrogen 23 mg/dL (9-16); Calcium 10.3 mg/dL (8.4-10.2); Carbon Dioxide 24 mmol/L (22-29); Chloride 103 mmol/L (96-108); Cholesterol 233 mg/dL (<200); Estimated Glomerular Filt Rate > 60; Glucose Fasting 279 mg/dL (60-99); HDL Cholesterol 47 mg/dL (>40); LDL Cholesterol Calculated 155 mg/dL (<100); Potassium 4.8 mmol/L (3.3-5.1); Sodium 140 mmol/L (135-145); Total Protein 8.3 g/dL (6.5-8.0); Triglycerides 158 mg/dL (<150)
[2023-06-30 12:50] LABS: TSH reflex Free T4 1.72 uIU/mL (0.32-4.0)
== END 2023-06-30 09:17 | disposition home or self-care (01) ==
LOC: HO.HMGCLDS 09:16
PROVIDERS: PCP Nurse Practitioner Family; Visit Provider Nurse Practitioner Family
DX: E11.9 Type 2 diabetes mellitus without complications (principal)
CPT/HCPCS: 36415; 80053; 80061; 84443; 85025

== ENCOUNTER 2023-07-06 13:18 | Outpatient (REF) | payer OTHER, SELFPAY ==
--- NOTE | ~2023-07-06 | US_ITS ---
EXAMINATION: Noninvasive assessment of the right lower extremities with ARTERIAL DUPLEX CLINICAL INFORMATION: Peripheral vascular disease TECHNIQUE: Duplex Doppler techniques with waveform analysis and measurement of velocities in the right common femoral, profunda femoris, superficial femoral, popliteal and tibial arteries were performed. COMPARISON: None FINDINGS: DIRECT DUPLEX DOPPLER FINDINGS: RIGHT LEG: Common femoral artery: 177 cm/s, phasicity: Triphasic. Mild calcified plaque Profunda femoris artery: 206 cm/s, phasicity: Triphasic Superficial femoral artery (proximal): 84.1 cm/s, phasicity: Triphasic Superficial femoral artery (mid): 52 cm/s, phasicity: Monophasic Superficial femoral artery (distal): 252 cm/s, phasicity: Monophasic. Noncalcified plaque. Just distal to this there is decreased velocity 32 cm/s with monophasic waveforms. Popliteal artery: 48 cm/s, phasicity: Monophasic Posterior tibial artery: 22 cm/s, phasicity: Monophasic. Multiple collateral vessels as seen in the proximal to mid the calf suggesting more proximal occlusion US/US arterial duplex LE RT IMPRESSION: Noncalcified plaque with elevated velocity in the distal superficial femoral artery. Dampened velocities and waveforms seen distal to the stenosis and findings consistent with a severe stenosis. There is also findings suggestive of proximal posterior tibial artery occlusion with reconstituted flow in the mid and distal segments
== END 2023-07-06 13:19 | disposition home or self-care (01) ==
LOC: HO.US 13:18
PROVIDERS: PCP Nurse Practitioner Family; Visit Provider Nurse Practitioner Family
DX: I73.9 Peripheral vascular disease, unspecified (principal)
CPT/HCPCS: 93926

== ENCOUNTER 2023-07-17 16:17 | Outpatient (REF) | payer OTHER, SELFPAY | END 2023-07-17 16:18 | disposition home or self-care (01) | LOC: HO.LNP 16:17 | PROVIDERS: Visit Provider Physician Assistant | DX: S91.101A Unspecified open wound of right great toe without damage to nail, initial encounter (principal); X58.XXXA Exposure to other specified factors, initial encounter; Y93.9 Activity, unspecified; Y92.9 Unspecified place or not applicable; Y99.9 Unspecified external cause status | CPT/HCPCS: 87070; 87077; 87186; 87205 ==

== ENCOUNTER → 2023-07-18 14:05 | Outpatient (BNVA) | payer OTHER, SELFPAY | PROVIDERS: PCP Nurse Practitioner Family; Visit Provider Surgery Vascular Surgery ==

== ENCOUNTER 2023-08-10 14:34 | Outpatient (AMB) | payer OTHER, SELFPAY ==
--- NOTE | 2023-08-10 14:35 | MHC.OFFVIS ---
Intake Vital Signs 08/10/23 14:38 Height 5 ft 10 in Weight 234 lb BMI 33.6 Intake Visit Reasons: Follow Up Arterial Intake Note: pt here for FU arterial US on 07/06/23 and non healing right great toe wound pt says he is still very sore and has a gapping hole in his toe would like dr mckeon to evaluate Allergies adhesive tape Allergy (Intermediate, Verified 08/10/23 14:38) Rash codeine [Tylenol-Codeine #3] Allergy (Intermediate, Verified 08/10/23 14:38) Rash hydrocodone [Vicodin] Allergy (Intermediate, Verified 08/10/23 14:38) confusion/does not relieve pain morphine Allergy (Intermediate, Verified 08/10/23 14:38) rash diphenhydramine [From Benadryl] Adverse Reaction (Intermediate, Verified 08/10/23 14:38) Itching HPI Follow Up Arterial HPI Details Very pleasant 57-year-old gentleman presents for evaluation regarding peripheral vascular disease. This all began about 2 months ago where he removed a callus off his right great toe. Developed and significant large ulcer that was penetrating quite deep. It has been nonhealing for significant period of time. He was seen by his primary care provider who astutely noted that he had diminished pulses. Noninvasive testing was ordered. He now presents to us for vascular evaluation. Of note he smokes about a half a pack per day. In addition he has a longstanding history of diabetes. [facility] Medical History Diabetes Dysplastic colon polyp Parasomnia Smoker CHF (congestive heart failure) Sleep apnea High cholesterol Hypertension Acid reflux Surgical History History of esophagogastroduodenoscopy (EGD) H/O colonoscopy Hx of rotator cuff surgery H/O resection of small bowel History of colon resection Family History Mother No problems noted. Father No problems noted. Social History Housing: Apartment Housing Other:: mobile home Are you a primary personal carer to a significant other at home: No Do you presently have visiting nurse or other home services: No Alcohol intake: current Alcohol intake frequency: does not drink Patient Tobacco Use Status: Current everyday Tobacco user Tobacco use type: Cigarette and Cigar Cigarette Packs Per Day: 0.5 Cigarettes Per Day: 5 Years Smoked: 35+ e-Cigarette/Vaping Use: Never Used Second Hand Smoke Exposure: No Substance Use Type: Marijuana Current occupational status: unemployed Current occupation: left handed Cognitive needs: No Hearing needs: No Vision needs: No Review of Systems Const All systems reviewed & are unremarkable except as noted in HPI and below Reports no additional complaints ENT Reports Normal hearing present Card Denies chest pain, Denies chest pain at rest, Denies chest pain with activity and Denies pedal edema Resp Denies cough GI Denies abdominal pain Musc Denies abnormal gait, Denies muscle cramps and Denies radiating pain into limb Skin/Breast Denies skin ulcer and Denies wounds Neuro Reports Normal hearing present and Denies abnormal gait Psych Reports no additional complaints Physical Exam Vital Signs: BMI result Body Mass Index 33.6 Const General: cooperative, healthy appearing and comfortable Orientation/consciousness: oriented to person, oriented to place and oriented to time HEENT Head: Yes normal to inspection Neck Neck: Yes normal visual inspection Carotids: no bruits Chest Chest palpation & inspection: normal inspection of the chest Resp Effort & Inspection: normal respiratory effort and able to speak in complete sentences Auscultation: clear to auscultation bilaterally, no crackles, no rales, no rhonchi and no wheezes Cardio Other: Bilateral DP signals Rate: regular rate Rhythm: regular rhythm Heart sounds: S1 normal heart sound present and S2 normal heart sound present Bruits: no carotid bruits Peripheral pulses: Peripheral pulses 2+ throughout GI Inspection: Yes normal to inspection Skin Wounds: no wounds Hair: normal Neuro General: oriented to person, oriented to place and oriented to time Cranial nerves: Yes CN's II-XII intact bilaterally and Yes Normal hearing present Cognition (Neuro): normal cognition Motor exam (neuro): 5/5 motor strength present throughout Extrem Other: venous exam: No significant superficial varicosities or spider telangiectasias, minimal edema General: No clubbing, No cyanosis and No edema Psych Appearance: grossly normal Mental Status: mental status grossly normal Speech and movement: Normal speech and movement present Results Reviewed Results Reviewed: Arterial ultrasound dated 07/06/2023 demonstrates SFA disease. Written report and images were reviewed. Assessment & Plan Assessment & Plan (1) PAD (peripheral artery disease): Code(s): I73.9 - Peripheral vascular disease, unspecified Plan: Patient notes leg pain when walking distances. I have discussed the pathophysiology of peripheral vascular disease with the patient. I have also discussed risk factor modification. I have reviewed the patient's arterial testing which reveals right SFA disease. the patient would benefit from a right leg endovascular peripheral angiogram with possible angioplasty, stent, and/or atherectomy. This has been discussed in detail with the patient along with risks, benefits, and complications. This includes but is not limited to bleeding, infection, heart attack, need for emergent surgical repair, limb ischemia, blood vessel damage, bleeding, puncture, kidney injury, bruising, allergic reaction, and skin reaction. The patient demonstrates a clear understanding. We will schedule for the next appropriate time. Thank you for allowing us to assist in this patient's care. (2) Diabetic ulcer of right foot: Code(s): E11.621 - Type 2 diabetes mellitus with foot ulcer; L97.519 - Non-pressure chronic ulcer of other part of right foot with unspecified severity Qualifiers: Diabetic foot ulcer location: toe Diabetes mellitus type: type 2 Non-pressure ulcer stage: unspecified non-pressure ulcer stage Qualified Code(s): E11.621 - Type 2 diabetes mellitus with foot ulcer; L97.519 - Non-pressure chronic ulcer of other part of right foot with unspecified severity Plan: Continue local wound care Coding Level of Care Code New Pt Level 4 (00833) Diagnoses PAD (peripheral artery disease) I73.9 Diabetic ulcer of toe of right foot associated with type 2 diabetes mellitus, unspecified ulcer stage E11.621; L97.519 Diabetic foot ulcer location: toe Diabetes mellitus type: type 2 Non-pressure ulcer stage: unspecified non-pressure ulcer stage
[2023-08-10 14:38] VITALS: BMI 33.6
== END 2023-08-10 15:19 | disposition home or self-care (01) ==
PROVIDERS: PCP Nurse Practitioner Family; Visit Provider Surgery Vascular Surgery
DX: I73.9 Peripheral vascular disease, unspecified (principal); E11.621 Type 2 diabetes mellitus with foot ulcer; L97.519 Non-pressure chronic ulcer of other part of right foot with unspecified severity
CPT/HCPCS: 99204

== ENCOUNTER → 2023-08-10 14:34 | Outpatient (BNVA) | payer OTHER, SELFPAY | PROVIDERS: PCP Nurse Practitioner Family; Visit Provider Surgery Vascular Surgery | DX: I73.9 Peripheral vascular disease, unspecified (principal); E11.621 Type 2 diabetes mellitus with foot ulcer; L97.519 Non-pressure chronic ulcer of other part of right foot with unspecified severity; F17.210 Nicotine dependence, cigarettes, uncomplicated | CPT/HCPCS: 99202 ==

== ENCOUNTER 2023-08-16 07:18 | Day surgery (SDC) | payer OTHER, SELFPAY ==
[2023-08-16] VITALS (7 sets, daily range): BP systolic 153–175; BP diastolic 68–88; PULSE 73–84; RESP 16–18; TEMP 37.2; O2SAT 96–100; BMI 32.6
[2023-08-16 08:43] LABS: MANUAL DIFF FLAG NO
[2023-08-16 08:49] LABS: Basophils Absolute Auto 0.1 X10*3/uL (0.0-0.2); Basophils Percent Auto 0.5 % (0-2); Eosinophils Absolute Auto 0.2 X10*3/uL (0.0-0.4); Eosinophils Percent Auto 2.1 % (0-4); Hematocrit 44.8 % (42.0-52.0); Hemoglobin 14.8 g/dl (14.0-18.0); Imm Gran Abs Auto 0.02 X10*3/uL (0.00-0.03); Imm Gran Pct Auto 0.2 % (0.0-0.4); Lymphocytes Absolute Auto 2.1 X10*3/uL (1.2-4.9); Lymphocytes Percent Auto 23.1 % (20-40); Mean Corpuscular Hemoglobin 31.6 pg (27.0-33.0); Mean Corpuscular Volume 95.5 fL (80.0-98.0); Mean Platelet Volume 10.5 fL (9.4-12.4); Monocytes Absolute Auto 0.7 X10*3/uL (0.1-1.2); Monocytes Percent Auto 7.9 % (2-11); Neutrophils Absolute Auto 6.1 x10*3/uL (2.0-8.3); Neutrophils Percent Auto 66.2 % (45-73); Platelet Count 214 X10*3/uL (160-400); Red Blood Count 4.69 X10*6/uL (4.60-5.80); Red Cell Distribution Width 13.6 % (11.0-16.0); White Blood Count 9.1 X10*3/uL (4.8-10.8)
[2023-08-16 09:03] LABS: Blood Urea Nitrogen 8 mg/dL (9-16); Creatinine Clr Calc Pharmacy 125.7; Estimated Glomerular Filt Rate > 60
[2023-08-16 09:12] LABS: Glucose, Whole Blood 89 mg/dL (60-115)
--- NOTE | 2023-08-16 11:01 | W.PM.OPN ---
Operative Note Operative Note Date of Service: 08/16/23 Narrative: Angiogram report from [facility] Preoperative diagnosis: Atherosclerosis of right lower extremity with nonhealing ulcer Postoperative diagnosis: Same Procedure: 1. Ultrasound-guided left common femoral access 2. Aortogram with right lower extremity runoff 3. Right SFA atherectomy and plasty Surgeon:Bobo Louis M.D., FACS, RPVI Kitchen Supervisor:None Anesthesia: Local with moderate conscious sedation. Total intraservice moderate sedation time was 60 minutes. I monitored the patient's level of consciousness and physiologic status continuously throughout the procedure. Specimens:none Drains:none Estimated blood loss: Less than 10 ml Implant: Medtronic Impact DCB 6 x 120 Indications: Very pleasant 57-year-old gentleman with a nonhealing right great toe ulcer. Has a history of peripheral vascular disease. Next on noninvasive testing concern SFA occlusion. He now presents for endovascular intervention The patient has signed the informed consent after reviewing risks, complications, benefits, and alternatives previously discussed with the patient. The patient was given the opportunity to ask any additional questions or voice any concerns. All questions were answered to the patient's satisfaction. Procedure in detail: Patient was brought to the angiography suite prior to which a time-out was called for patient identification and site verification. Bilateral groins were prepped and draped in the standard surgical fashion. Under ultrasound guidance left common femoral was punctured with micro puncture needle and wire. Subsequently a precision 4 Ethiopian sheath was then placed. Bentson wire was advanced to the level of the aorta. 4 Ethiopian Flush catheter was brought up and parked at the level of the renal arteries. Aortogram was then undertaken. Catheter was brought down to the level of the iliac bifurcation. Iliacs were subsequently imaged. Catheter was then brought in up and over to the right side SFA. Runoff study was then undertaken. It was recognized that there was a mid SFA occlusion. We were able to traverse this with a 035 glidewire Advantage. Once across we then administered 8000 units of systemic heparin. After 5 minutes of circulation time up and over 6 Ethiopian sheath was then placed. Once this was accomplished we then confirmed true lumen with a Navicross catheter instilled with contrast. This did demonstrate appropriate lumen in the popliteal. We then exchanged out for a 6 spider wire. Over this Hawk 1 unidirectional atherectomy was then undertaken. Multiple unidirectional passes were performed. Once this was accomplished completion angiogram did demonstrate reasonable results but some residual stenosis. This area was then plasty did with a 6 by 80 balloon. This was followed by a 6 x 120 drug coated balloon. This was brought into position in under 3 minutes and insufflated for a total of 3 minutes in duration. Completion angiogram demonstrated excellent result catheter wire sheath was brought back to the ipsilateral side StarClose closure device was then deployed. Patient tolerated the procedure well returned to recovery with stable vitals. Interpretation of films: 1. Ultrasound demonstrates appropriate femoral puncture. Image of which was saved. 2. Aortogram demonstrates appropriate caliber aorta. Minimal disease. Appropriate take-off of the renals. 3. Iliac images demonstrate no significant disease 4. Right Leg Common femoral artery: No significant disease Profundus Femoris: No significant disease Superficial femoral artery: Total occlusion at Bryce's canal Popliteal artery (p1,p2,p3): No significant disease Anterior tibial artery: Patent all the way to the foot Peroneal artery: Diminutive but patent to the ankle Posterior tibial artery: Occludes in the proximal 3rd Dorsalis pedis/plantar arch: Incomplete Conclusion: 1. Successful atherectomy and plasty of right SFA 2. Anticoagulation status: Will require aspirin and Plavix for 6 months This note is constructed using voice recognition software. While every effort has been made to ensure accuracy, senior clinical data coordinator errors may have been included. Thank you for allowing me to participate in the care of your patient. Yours sincerely, Bobo Louis MD, FACS, R.P.V.I.
[2023-08-16] MEDS: Clopidogrel Bisulfate 300 MG TABLET PO (12:04)
[2023-08-16] MEDS: Aspirin 325 MG TABLET 650 MG PO (12:04)
== END 2023-08-16 12:00 | disposition home or self-care (01) ==
PROVIDERS: PCP Nurse Practitioner Family; Visit Provider Surgery Vascular Surgery
DX: E11.51 Type 2 diabetes mellitus with diabetic peripheral angiopathy without gangrene (principal); L97.519 Non-pressure chronic ulcer of other part of right foot with unspecified severity; I70.235 Atherosclerosis of native arteries of right leg with ulceration of other part of foot; I50.9 Heart failure, unspecified; I11.0 Hypertensive heart disease with heart failure; E78.00 Pure hypercholesterolemia, unspecified; K21.9 Gastro-esophageal reflux disease without esophagitis; F51.8 Other sleep disorders not due to a substance or known physiological condition; G47.33 Obstructive sleep apnea (adult) (pediatric); Z79.4 Long term (current) use of insulin; Z79.84 Long term (current) use of oral hypoglycemic drugs; Z79.85 Long-term (current) use of injectable non-insulin antidiabetic drugs; Z88.5 Allergy status to narcotic agent; L23.1 Allergic contact dermatitis due to adhesives; F17.210 Nicotine dependence, cigarettes, uncomplicated
CPT/HCPCS: 36415; 37225; 76937; 82565; 82947; 84520; 85025; 99152; 99153; C1714; C1725; C1760; C1769; C1884; C1887; J1644; J2250; J2310; J3010; Q9967

== ENCOUNTER → 2023-08-16 07:18 | Outpatient (BNV) | payer OTHER, SELFPAY | PROVIDERS: PCP Nurse Practitioner Family; Visit Provider Surgery Vascular Surgery | DX: I70.239 Atherosclerosis of native arteries of right leg with ulceration of unspecified site (principal) | CPT/HCPCS: 37225; 75625; 75710; 76937 ==

== ENCOUNTER 2023-08-18 10:27 | Outpatient (AMB) | payer OTHER, SELFPAY ==
--- NOTE | 2023-08-18 10:35 | A.OFFVIS_ITS ---
Intake Intake Visit Reasons: LDCT SD Allergies adhesive tape Allergy (Intermediate, Verified 08/10/23 14:38) Rash codeine [Tylenol-Codeine #3] Allergy (Intermediate, Verified 08/10/23 14:38) Rash hydrocodone [Vicodin] Allergy (Intermediate, Verified 08/10/23 14:38) confusion/does not relieve pain morphine Allergy (Intermediate, Verified 08/10/23 14:38) rash diphenhydramine [From Benadryl] Adverse Reaction (Intermediate, Verified 08/10/23 14:38) Itching HPI HPI Comments History of Present Illness Details Alden is a pleasant 57 year old male, current smoker with a 31+ PYH. Patient has been smoking since age 15 for 42 years at 0.5-1 ppd. Denies marijuana use. Reports exposure to chemicals or substances like asbestos. Reports second hand smoke exposure. Denies known family history of lung cancer. Reports personal history of colon cancer s/p resection approximately 5 years ago, no chemo/radiation required. Denies chest CT in last year. Denies recent travel outside the [place]. Admits to testing positive for COVID. Admits receiving COVID Vaccine. Denies fever, chills, chest pain, new cough, hemoptysis or unintentional weight loss. Lung Cancer Screening Questionnaire reviewed with patient by provider. Shared Decision Making Completed. Discussed in detail with patient, the risk versus benefit of LDCT screening. Patient in agreement of proceeding with scan. [facility] Medical History Diabetes Dysplastic colon polyp Parasomnia Smoker CHF (congestive heart failure) Sleep apnea High cholesterol Hypertension Acid reflux Surgical History History of esophagogastroduodenoscopy (EGD) H/O colonoscopy Hx of rotator cuff surgery H/O resection of small bowel History of colon resection Family History Mother No problems noted. Father No problems noted. Social History Housing: Apartment Housing Other:: mobile home Are you a primary client care representative to a significant other at home: No Do you presently have visiting nurse or other home services: No Alcohol intake: current Alcohol intake frequency: does not drink Patient Tobacco Use Status: Current everyday Tobacco user Tobacco use type: Cigarette and Cigar Cigarette Packs Per Day: 0.5 Cigarettes Per Day: 5 Years Smoked: 35+ e-Cigarette/Vaping Use: Never Used Second Hand Smoke Exposure: No Substance Use Type: Marijuana Current occupational status: unemployed Current occupation: left handed Cognitive needs: No Hearing needs: No Vision needs: No Assessment & Plan Assessment & Plan (1) Nicotine dependence: Code(s): F17.200 - Nicotine dependence, unspecified, uncomplicated Plan Shared decision-making visit completed today in office. This patient meets criteria for LDCT for lung cancer screening purposes and is asymptomatic. Offered smoking cessation. Patient has been scheduled for a low dose chest CT for screening purposes at [facility]. We discussed how the results will be obtained depending on CT findings. RADS 1 and RADS 2 will receive a letter with results and will follow up for annual LDCT. Patient informed they will be contacted at later date to schedule upcoming LDCT scan. RADS 3 and RADS 4 will receive a telephone call, or an office visit after reviewing case at our Lung Cancer Conference to determine when the next LDCT will be scheduled or further interventions that may be needed. Discussed importance of screening p rogram and compliance with yearly LDCT scan as scheduled. Risks, benefits, and alternatives were discussed in detail and patient agrees to proceed. Risks discussed include but are not limited to: radiation exposure and possibility of additional intervention for benign disease. Benefits include detection of lung cancer at an early stage. A copy of today's visit and LDCT results will be sent to patient's PCP. Incidental findings on LDCT are PCP's responsibility. If there are incidental findings, our office will ensure that PCP office is aware of these findings. All questions were answered and patient is in agreement of plan. Coding Level of Care Code Lung Cancer Screening G0296 Diagnoses Nicotine dependence F17.200
== END 2023-08-18 10:50 | disposition home or self-care (01) ==
PROVIDERS: PCP Nurse Practitioner Family; Visit Provider Nurse Practitioner Family
DX: F17.200 Nicotine dependence, unspecified, uncomplicated (principal)
CPT/HCPCS: G0296

== ENCOUNTER 2023-08-18 10:56 | Outpatient (REF) | payer OTHER, SELFPAY ==
--- NOTE | ~2023-08-18 | CT_ITS ---
EXAMINATION: CT CHEST LOW-DOSE SCREENING WITHOUT CONTRAST HISTORY: Asymptomatic patient meeting criteria for lung screening. PATIENT PACK-YEAR HISTORY: 41 Current Smoker: Yes If former smoker, years since quitting: COMPARISON: None available. TECHNIQUE: Multidetector volumetric non-contrast CT imaging of the chest was performed using low dose screening CT technique. Axial thin section 0.625 mm reformations in soft tissue and lung windows were obtained. Sagittal and coronal reformations were obtained. Axial MIP images were also created and reviewed. RECONSTRUCTED WIDTH: 1.25 mm x 1.25 mm TOTAL EXAM DLP: 73 mGy-cm CTDIvol: 1.90 L mGy FINDINGS: LUNGS: Mild centrilobular emphysema. 3 mm right lower lobe nodule on image 224. No focal consolidation. Central airways are patent. PLEURA: No pleural effusion. LYMPH NODES: No bulky mediastinal, hilar or axillary lymphadenopathy. MEDIASTINUM: Great vessels are of normal caliber. Heart size is normal. No pericardial effusion. CORONARY ARTERY CALCIFICATIONS: Moderate. CHEST WALL/BREASTS: No acute abnormality. UPPER ABDOMEN: This study was performed without contrast and with lower than standard dose, reducing the sensitivity for detection of small lesions in the upper abdomen. OSSEOUS STRUCTURES: No destructive bone lesions. CT/CT lung screening IMPRESSION: 3 mm right lower lobe pulmonary nodule. LUNG-RADS CATEGORY ASSESSMENT: 2. Benign appearance or behavior. Nodules with a very low likelihood of becoming a clinically active cancer due to size or lack of growth. Continue annual screening with low-dose CT in 12 months. Probability of malignancy less than 1%. INCIDENTAL FINDINGS (S CATEGORY): Finding: No incidental findings. Significance category: Normal or normal variant. RECOMMENDATION: Low dose lung CT. overall in 1 year. Visual estimate of coronary calcified plaque burden: Moderate. However, this exam cannot replace a dedicated cardiac CT calcium score for accurate assessment. LUNG-RADS CATEGORY: 2 -- BENIGN
== END 2023-08-18 10:57 | disposition home or self-care (01) ==
LOC: HO.CT 10:56
PROVIDERS: PCP Nurse Practitioner Family; Visit Provider Nurse Practitioner Family
DX: Z12.2 Encounter for screening for malignant neoplasm of respiratory organs (principal); F17.210 Nicotine dependence, cigarettes, uncomplicated
CPT/HCPCS: 71271; G0296

== ENCOUNTER 2023-08-29 10:59 | Outpatient (AMB) | payer OTHER, SELFPAY ==
--- NOTE | 2023-08-29 11:00 | MHC.OFFVIS ---
Intake Intake Visit Reasons: 2 week follow up right leg angio Intake Note: 2 week follow up Right Angio 08/16/23. Pt states he feels some pinching in the Left groin (entry spot from angio) and states he has a painful vein over his ankle bone and still has redness on his foot. Pt has non healing ulcer on his right great toe that he changes twice per week and goes to woundcare 1 time per week. Accompanied by: Self / Same As Patient Allergies adhesive tape Allergy (Intermediate, Verified 08/29/23 11:05) Rash codeine [Tylenol-Codeine #3] Allergy (Intermediate, Verified 08/29/23 11:05) Rash hydrocodone [Vicodin] Allergy (Intermediate, Verified 08/29/23 11:05) confusion/does not relieve pain morphine Allergy (Intermediate, Verified 08/29/23 11:05) rash diphenhydramine [From Benadryl] Adverse Reaction (Intermediate, Verified 08/29/23 11:05) Itching HPI 2 week follow up right leg angio HPI Details Very pleasant 57-year-old gentleman presents for follow-up status post right lower extremity angiogram. He underwent SFA atherectomy and plasty. He reports no postprocedure issues. He continues to have this nonhealing right great toe ulcer. He now presents for follow-up. [facility] Medical History Diabetes Dysplastic colon polyp Parasomnia Smoker CHF (congestive heart failure) Sleep apnea High cholesterol Hypertension Acid reflux Surgical History History of esophagogastroduodenoscopy (EGD) H/O colonoscopy Hx of rotator cuff surgery H/O resection of small bowel History of colon resection Family History Mother No problems noted. Father No problems noted. Social History Housing: Apartment Housing Other:: mobile home Are you a primary patient centered care specialist to a significant other at home: No Do you presently have visiting nurse or other home services: No Alcohol intake: current Alcohol intake frequency: does not drink Patient Tobacco Use Status: Current everyday Tobacco user Tobacco use type: Cigarette and Cigar Cigarette Packs Per Day: 0.5 Cigarettes Per Day: 5 Years Smoked: 35+ e-Cigarette/Vaping Use: Never Used Second Hand Smoke Exposure: No Substance Use Type: Marijuana Current occupational status: unemployed Current occupation: left handed Cognitive needs: No Hearing needs: No Vision needs: No Review of Systems Const All systems reviewed & are unremarkable except as noted in HPI and below Reports no additional complaints ENT Reports Normal hearing present Card Denies chest pain, Denies chest pain at rest, Denies chest pain with activity and Denies pedal edema Resp Denies cough GI Denies abdominal pain Musc Denies abnormal gait, Denies muscle cramps and Denies radiating pain into limb Skin/Breast Denies skin ulcer and Denies wounds Neuro Reports Normal hearing present and Denies abnormal gait Psych Reports no additional complaints Physical Exam Const General: cooperative, healthy appearing and comfortable Orientation/consciousness: oriented to person, oriented to place and oriented to time HEENT Head: Yes normal to inspection Neck Neck: Yes normal visual inspection Carotids: no bruits Chest Chest palpation & inspection: normal inspection of the chest Resp Effort & Inspection: normal respiratory effort and able to speak in complete sentences Auscultation: clear to auscultation bilaterally, no crackles, no rales, no rhonchi and no wheezes Cardio Rate: regular rate Rhythm: regular rhythm Heart sounds: S1 normal heart sound present and S2 normal heart sound present Bruits: no carotid bruits Peripheral pulses: Peripheral pulses 2+ throughout GI Inspection: Yes normal to inspection Skin Other: Right great toe ulcer approximately 1 cm in diameter wound was probed and does go down to bone. Wounds: no wounds Hair: normal Neuro General: oriented to person, oriented to place and oriented to time Cranial nerves: Yes CN's II-XII intact bilaterally and Yes Normal hearing present Cognition (Neuro): normal cognition Motor exam (neuro): 5/5 motor strength present throughout Extrem Other: venous exam: No significant superficial varicosities or spider telangiectasias, minimal edema General: No clubbing, No cyanosis and No edema Psych Appearance: grossly normal Mental Status: mental status grossly normal Speech and movement: Normal speech and movement present Assessment & Plan Assessment & Plan (1) PAD (peripheral artery disease): Comment: 07/17/2023 right SFA atherectomy and plasty Code(s): I73.9 - Peripheral vascular disease, unspecified Plan: in short patient appears to be doing relatively well status post angiogram. I do believe he has adequate blood supply to heal the wound. The concern here is that when I probed down it is probing to bone. He reports that he is scheduled for an x-ray by the [facility] but may need potentially MRI and evaluation for osteomyelitis. If that is not cleared may not heal the wound. We did discuss continued risk factor modification including wound protection and keeping the area in general clean. He will follow up with us in approximately 3 months time with arterial surveillance. Should there be any interval issues happy to see him back sooner. Thank you for allowing us to assist in his care. If there are any questions or concerns please do not hesitate to contact us. Orders: Orders US arterial duplex LE BI 3 Months I73.9 - Peripheral vascular disease, unspecified Coding Level of Care Code Est Pt Level 4 (98714) Diagnoses PAD (peripheral artery disease) I73.9
== END 2023-08-29 11:39 | disposition home or self-care (01) ==
PROVIDERS: PCP Nurse Practitioner Family; Visit Provider Surgery Vascular Surgery
DX: I70.235 Atherosclerosis of native arteries of right leg with ulceration of other part of foot (principal); Z98.62 Peripheral vascular angioplasty status
CPT/HCPCS: 99214

== ENCOUNTER → 2023-08-29 10:59 | Outpatient (BNVA) | payer OTHER, SELFPAY | PROVIDERS: PCP Nurse Practitioner Family; Visit Provider Surgery Vascular Surgery | DX: I73.9 Peripheral vascular disease, unspecified (principal) | CPT/HCPCS: 99212 ==

== ENCOUNTER 2023-09-20 09:15 | Outpatient (AMB) | payer OTHER, SELFPAY ==
--- NOTE | 2023-09-20 09:41 | MHC.PC.OV ---
Vital Signs 09/20/23 09:48 Weight 220 lb BP 122/90 H Blood Pressure Location Rt brachial Position Sitting Pulse 85 Pulse Source Pulse Oximeter Pulse Oximetry (%) 95 Oxygen Delivery Method Room Air Intake Visit Reasons: 3 month fu Intake Note: Patient here for diabetes follow up. pt states sugars have been in the low 200's and also has a whole in his big toe and has been going to wound center. Allergies adhesive tape Allergy (Intermediate, Verified 09/20/23 09:47) Rash codeine [Tylenol-Codeine #3] Allergy (Intermediate, Verified 09/20/23 09:47) Rash hydrocodone [Vicodin] Allergy (Intermediate, Verified 09/20/23 09:47) confusion/does not relieve pain morphine Allergy (Intermediate, Verified 09/20/23 09:47) rash diphenhydramine [From Benadryl] Adverse Reaction (Intermediate, Verified 09/20/23 09:47) Itching Tobacco use date assessed: 09/20/23 Dental Screening Dental Screen Date: 09/20/23 Did you have a dental visit in the last 12 months?: No Did you have a dental problem in the last 6 months where you did not have access to dental care?: No Was dental information given to patient?: Patient declined HPI 3 month fu HPI Details Pt is a diabetic, on an MIKEY and a statin. A1C in office today is 8.1. Due for microalbumin. Denies polyuria, polydipsia, does report neuropathy. Pt denies any signs and symptoms of hypoglycemia and does know how to correct it. Will increase insulin detemir from 62 units to 65mg. Will refer for eye exam. Pt is following up with the wound center once a week due to an ulcer of his right big toe. He may have osteomyelitis and there is a possibility he will need an amputation. Pt had to leave before appointment was done today due to transportation issue. [facility] Medical History Diabetes Dysplastic colon polyp Parasomnia Smoker CHF (congestive heart failure) Sleep apnea High cholesterol Hypertension Acid reflux Surgical History History of esophagogastroduodenoscopy (EGD) H/O colonoscopy Hx of rotator cuff surgery H/O resection of small bowel History of colon resection Family History Mother No problems noted. Father No problems noted. Social History Housing: Apartment Housing Other:: mobile home Are you a primary health care social worker to a significant other at home: No Do you presently have visiting nurse or other home services: No Alcohol intake: current Alcohol intake frequency: does not drink Patient Tobacco Use Status: Current everyday Tobacco user Tobacco use type: Cigarette and Cigar Cigarette Packs Per Day: 0.5 Cigarettes Per Day: 5 Years Smoked: 35+ e-Cigarette/Vaping Use: Never Used Second Hand Smoke Exposure: No Substance Use Type: Marijuana Current occupational status: unemployed Current occupation: left handed Cognitive needs: No Hearing needs: No Vision needs: No Questionnaire Thrive Questionnaire Date Thrive assessed: 04/15/21 Review of Systems Const Reports as per HPI Physical exam (Primary Care) Vital Signs: Last Vital Signs Pulse 85 09/20/23 09:48 BP 122/90 H 09/20/23 09:48 Pulse Ox 95 09/20/23 09:48 Oxygen Delivery Method Room Air 09/20/23 09:48 Tobacco/Smoking Status: Tobacco use Status Tobacco use date assessed 09/20/23 09/20/23 09:49 Patient Tobacco Use Status Current everyday Tobacco 09/20/23 09:42 Tobacco use type Cigarette,Cigar 09/20/23 09:42 e-Cigarette/Vaping Use Never Used 09/20/23 09:42 Thrive Assessment: Date of Thrive Assessment Date Thrive assessed 04/15/21 09/20/23 09:42 Const General: cooperative Orientation/consciousness: patient oriented x3 Resp Other: lungs with scattered rhonchi Effort & Inspection: normal respiratory effort Cardio Rate: regular rate Rhythm: regular rhythm Heart sounds: S1 normal heart sound present and S2 normal heart sound present Neuro General: patient oriented x3 Extrem Other: right foot no sensation with use of monofilament, left foot + sensation, right foot big toe with open ulceration, patted down with normal saline and redressed. feet are dirty bilat Psych Appearance: grossly normal Mental Status: mental status grossly normal Speech and movement: Normal speech and movement present Affect: normal affect Attitude: cooperative Thought process: Normal thought process present Thought content: Normal thought content present Insight: Good insight present (Psych) Judgement: Good judgement present (Psych) Results AMB Hemoglobin A1c AMB Hemoglobin A1c 8.1 % Last Edit by AAYUSH Garcia on 09/20/23 10:04 Results Reviewed Results Reviewed: Laboratory Last Values Hgb A1c (Clinic) 8.1 % (4.0-6.0) H 09/20/23 10:03 Assessment and Plan Assessment & Plan (1) Diabetes: Comment: type 2-dx ~2017-glucose usually ~185-240 Code(s): E11.9 - Type 2 diabetes mellitus without complications Plan: Labs ordered, increasing insulin from 62 to 65 units (2) Diabetic ulcer of right foot: Code(s): E11.621 - Type 2 diabetes mellitus with foot ulcer; L97.519 - Non-pressure chronic ulcer of other part of right foot with unspecified severity Qualifiers: Diabetes mellitus type: type 2 Diabetic foot ulcer location: toe Non-pressure ulcer stage: unspecified non-pressure ulcer stage Qualified Code(s): E11.621 - Type 2 diabetes mellitus with foot ulcer; L97.519 - Non-pressure chronic ulcer of other part of right foot with unspecified severity Plan: Continue to follow up with wound center Plan The patient agreed to the use of a medical officer psychiatry for this encounter. Scribed for TONO Adams- by Wen Cote medical officer psychiatry, on 09/20/2023 at 09:55 EST. Orders: Orders UA CC w/rflx Micro + Cult Today E11.9 - Type 2 diabetes mellitus without complications AMB Hemoglobin A1c Today E11.9 - Type 2 diabetes mellitus without complications Complete Blood Count Auto Diff Today E11.9 - Type 2 diabetes mellitus without complications Comprehensive Marshall. Panel Fast Today E11.9 - Type 2 diabetes mellitus without complications TSH reflex Free T4 Today E11.9 - Type 2 diabetes mellitus without complications Lipid Panel Today E11.9 - Type 2 diabetes mellitus without complications Referrals Optometry Referral E11.9 - Type 2 diabetes mellitus without complications Medications: Changed From insulin detemir U-100 62 units (0.62 mL) subcut BID 45 mL 5RF To insulin detemir U-100 65 units (0.65 mL) subcut BID 45 mL 5RF Coding Level of Care Code Est Pt Level 3 (27019) Diagnoses Diabetes E11.9 Diabetic ulcer of toe of right foot associated with type 2 diabetes mellitus, unspecified ulcer stage E11.621; L97.519 Diabetes mellitus type: type 2 Diabetic foot ulcer location: toe Non-pressure ulcer stage: unspecified non-pressure ulcer stage
[2023-09-20 09:48] VITALS: BP 122/90; PULSE 85; O2SAT 95
== END 2023-09-20 11:32 | disposition home or self-care (01) ==
PROVIDERS: PCP Nurse Practitioner Family; Visit Provider Nurse Practitioner Family
DX: E11.621 Type 2 diabetes mellitus with foot ulcer (principal); L97.519 Non-pressure chronic ulcer of other part of right foot with unspecified severity
CPT/HCPCS: 83036; 99213

== ENCOUNTER 2023-10-19 15:17 | Outpatient (REF) | payer OTHER, SELFPAY ==
--- NOTE | ~2023-10-19 | MR_ITS ---
EXAMINATION: MR FOOT WITHOUT AND WITH CONTRAST, RIGHT CLINICAL INFORMATION: Wound at the right great toe. COMPARISON: Right foot radiograph dated 02/20/2024 TECHNIQUE: MRI of the right foot was performed before and after the intravenous administration of 10 mL Gadavist on a high-field scanner. FINDINGS: There is a focal skin wound at the plantar/medial margin of the great toe IP joint measuring 6 x 6 mm in area with focal enhancement and fluid signal intensity. There is surrounding soft tissue swelling and subcutaneous edema. No appreciable abscess. Marrow edema signal and hyperenhancement are present in the plantar/medial aspect of the great toe proximal phalangeal base without appreciable signal abnormality on T1-weighted images. Additional mild hyperenhancement is noted in the distal aspect of the great toe proximal phalangeal base near the IP joint. There is mild synovial hyperenhancement at the IP joint with a trace joint effusion. Mild osteoarthritis is present at the great toe MTP joint with small marginal osteophytes and mild nonuniform chondral thinning. Joints otherwise relatively well-preserved in the forefoot. There is mild multifocal osteoarthritis in the midfoot at the naviculocuneiform and tarsometatarsal joints. Mild edema signal and atrophy are noted in the intrinsic foot musculature. There is soft tissue swelling and subcutaneous edema in the dorsal aspect of the forefoot at the level of the metatarsals. No fluid collections. No tenosynovitis. MR/MR foot RT wo/w con IMPRESSION: Soft tissue wound at the plantar/medial margin of the great toe IP joint with underlying marrow edema signal and enhancement in the great toe proximal phalangeal base, constituting a high probability of osteomyelitis. No abscess. Synovial hyperenhancement at the great toe interphalangeal joint raises the possibility of early changes of septic arthritis.
[2023-10-19] MEDS: gadobutroL 10 ML VIAL IVPUSH (16:36)
== END 2023-10-19 15:18 | disposition home or self-care (01) ==
LOC: HO.MRI 15:17
PROVIDERS: PCP Nurse Practitioner Family; Visit Provider Physician Assistant
DX: E11.621 Type 2 diabetes mellitus with foot ulcer (principal); L97.521 Non-pressure chronic ulcer of other part of left foot limited to breakdown of skin
CPT/HCPCS: 73720; A9585

== ENCOUNTER 2023-11-28 09:39 | Outpatient (REF) | payer OTHER, SELFPAY ==
--- NOTE | ~2023-11-28 | US_ITS ---
EXAMINATION: NONINVASIVE ASSESSMENT OF THE ARTERIES OF BOTH LOWER EXTREMITIES INCLUDING PVR EXAM AND BILATERAL LOWER EXTREMITY DUPLEX CLINICAL INFORMATION: peripheral vascular disease COMPARISON: July 06, 2023 TECHNIQUE: Ankle pulse volume recordings, ankle pressure measurements and ankle brachial indices were obtained of the lower extremity arterial system bilaterally in addition to duplex Doppler techniques with wave form analysis and measurement of velocities in the common femoral, profunda femoral, superficial femoral, popliteal, tibial and peroneal arteries. The study was performed only at rest. FINDINGS: RIGHT LEG 1. Right Ankle-Brachial Index: 0.58 (higher of the DP/PT) >0.97-1.25 = normal - no significant arterial disease 0.75-0.96 = mild peripheral arterial disease 0.5-0.74 = moderate peripheral arterial disease <0.50 = severe peripheral arterial disease <0.30 = critical arterial disease 2. Segmental Pressures (mmHg): Brachial: 184 Ankle: DP 106 3. PVR Waveforms: Ankle: normal 4. Direct Duplex: Common femoral artery: 154 cm/s, Multiphasic Profunda femoris artery: 188 cm/s, Multiphasic Superficial femoral artery (proximal): 342 cm/s, Multiphasic Superficial femoral artery (mid): 73.4 cm/s, Multiphasic Superficial femoral artery (distal): 93.1 cm/s, Multiphasic Proximal Popliteal artery: 81.7 cm/s, Multiphasic Mid posterior tibial artery: 52 cm/s, Multiphasic Anterior tibial artery: 422 cm/s, multiphasic LEFT LE. Left Ankle-Brachial Index: 0.64 (higher of the DP/PT) >0.97-1.25 = normal - no significant arterial disease 0.75-0.96 = mild peripheral arterial disease 0.5-0.74 = moderate peripheral arterial disease <0.50 = severe peripheral arterial disease <0.30 = critical arterial disease 2. Segmental Pressures: Brachial: 173 Ankle: DP 118 3. PVR Waveforms: Ankle: normal 4. Direct Duplex: Common femoral artery: 179 cm/s, Multiphasic Profunda femoris artery: 193 cm/s, Multiphasic Superficial femoral artery (proximal): 129 cm/s, Multiphasic Superficial femoral artery (mid): 117 cm/s, Multiphasic Superficial femoral artery (distal): 256 cm/s, Multiphasic Proximal Popliteal artery: 98.2 cm/s, Multiphasic Mid posterior tibial artery: 14.4 cm/s, Multiphasic US/US arterial duplex LE BI IMPRESSION: 1. Abnormal bilateral ankle brachial indices measuring 0.58 on the right 0.64 the left. These are both consistent with moderate peripheral arterial disease. 2. Newly elevated velocities in the proximal superficial femoral artery, and noncalcified plaque causing 75% narrowing. 3. Elevated velocities in the right anterior tibial artery suggesting high-grade stenosis. 4. Calcific and fibrofatty plaque in the distal left superficial femoral artery, and elevated velocities consistent with hemodynamically significant stenosis.
--- NOTE | ~2023-11-28 | XR_ITS ---
EXAMINATION: 1. RADIOGRAPHS RIGHT ANKLE 2. RADIOGRAPHS RIGHT FOOT CLINICAL INFORMATION: Pain COMPARISON: Right foot MRI October 19, 2023 and right foot x-rays September 21, 2023 TECHNIQUE: 3 views of the right ankle and 3 views of the right foot were obtained. FINDINGS: Visualized portion of the distal tibia and fibula demonstrate no fracture. Ankle mortise is grossly maintained. No gross ankle joint effusion. Bones of the midfoot are well aligned. No tarsal, metatarsal or phalangeal fracture. Mild degenerative changes of the first MTP joint and scattered IP joints. No localized soft tissue swelling. No radiopaque foreign body. Vascular calcifications noted. XR/XR foot RT min 3V IMPRESSION: Mild degenerative changes of the right foot. No fracture.
--- NOTE | ~2023-11-28 | XR_ITS ---
EXAMINATION: 1. RADIOGRAPHS RIGHT ANKLE 2. RADIOGRAPHS RIGHT FOOT CLINICAL INFORMATION: Pain COMPARISON: Right foot MRI October 19, 2023 and right foot x-rays September 21, 2023 TECHNIQUE: 3 views of the right ankle and 3 views of the right foot were obtained. FINDINGS: Visualized portion of the distal tibia and fibula demonstrate no fracture. Ankle mortise is grossly maintained. No gross ankle joint effusion. Bones of the midfoot are well aligned. No tarsal, metatarsal or phalangeal fracture. Mild degenerative changes of the first MTP joint and scattered IP joints. No localized soft tissue swelling. No radiopaque foreign body. Vascular calcifications noted. XR/XR ankle RT 2V IMPRESSION: Mild degenerative changes of the right foot. No fracture.
== END 2023-11-28 09:40 | disposition home or self-care (01) ==
LOC: HO.HMGCX 09:39
PROVIDERS: PCP Nurse Practitioner Family; Visit Provider Nurse Practitioner Family
DX: M25.571 Pain in right ankle and joints of right foot (principal); I73.9 Peripheral vascular disease, unspecified
CPT/HCPCS: 73600; 73630; 93923; 93925

== ENCOUNTER 2024-01-10 08:01 | Outpatient (AMB) | payer OTHER, SELFPAY ==
--- NOTE | 2024-01-10 08:04 | AM.OFFWIN_ITS ---
Intake Vital Signs 01/10/24 08:10 Height 5 ft 10 in Weight 220 lb BMI 31.6 BP 142/90 H Blood Pressure Location Rt brachial Position Sitting Pulse 80 Pulse Source Pulse Oximeter Temp 98.1 F Temp Source Oral Pulse Oximetry (%) 97 Intake Visit Reasons: EP RT foot ?infection Intake Note: pt is here for right foot infection Patient Tobacco Use Status: Current everyday Tobacco user Allergies adhesive tape Allergy (Intermediate, Verified 01/10/24 08:11) Rash codeine [Tylenol-Codeine #3] Allergy (Intermediate, Verified 01/10/24 08:11) Rash hydrocodone [Vicodin] Allergy (Intermediate, Verified 01/10/24 08:11) confusion/does not relieve pain morphine Allergy (Intermediate, Verified 01/10/24 08:11) rash diphenhydramine [From Benadryl] Adverse Reaction (Intermediate, Verified 01/10/24 08:11) Itching Do you need a note to return to daycare/school/sports/work: No HPI HPI Comments History of Present Illness Details 58 y/o female patient who presents to [facility] clinic today with c/o right lower extremity swelling, skin color change and pain. Pt was in [place] in a cruise and symptoms started then - reports he did alot of walking. S/p SFA Atherectomy and Plasty 2022. U/S Doppler Lower extremities done 11/28/2023 showed : IMPRESSION: 1. Abnormal bilateral ankle brachial in dices measuring 0.58 on the right 0.64 the left. These are both consistent with moderate peripheral arterial disease. 2. Newly elevated velocities in the pro ximal superficial femoral artery, and noncalcified plaque causing 75% narrowing. 3. Elevated velocities in the right ant erior tibial artery suggesting high-grade stenosis. 4. Calcific and fibrofatty plaque in th e distal left superficial femoral artery, and elevated velocities consistent with hemodynamically significant stenosis. [facility] Medical History Diabetes Dysplastic colon polyp Parasomnia Smoker CHF (congestive heart failure) Sleep apnea High cholesterol Hypertension Acid reflux Surgical History History of esophagogastroduodenoscopy (EGD) H/O colonoscopy Hx of rotator cuff surgery H/O resection of small bowel History of colon resection Family History Mother No problems noted. Father No problems noted. Social History Housing: Apartment Housing Other:: mobile home Are you a primary point of care specialist to a significant other at home: No Do you presently have visiting nurse or other home services: No Alcohol intake: current Alcohol intake frequency: does not drink Patient Tobacco Use Status: Current everyday Tobacco user Tobacco use type: Cigarette and Cigar Cigarette Packs Per Day: 0.5 Cigarettes Per Day: 5 Years Smoked: 35+ e-Cigarette/Vaping Use: Never Used Second Hand Smoke Exposure: No Substance Use Type: Marijuana Current occupational status: unemployed Current occupation: left handed Cognitive needs: No Hearing needs: No Vision needs: No Review of Systems Const All systems reviewed & are unremarkable except as noted in HPI and below Physical Exam Vital Signs: Last Vital Signs Temp 98.1 F 01/10/24 08:10 Pulse 80 01/10/24 08:10 BP 142/90 H 01/10/24 08:10 Pulse Ox 97 01/10/24 08:10 BMI result Body Mass Index 31.6 Const General: no acute distress Nutritional Appearance: obese Orientation/consciousness: patient oriented x3 Neuro General: patient oriented x3, gait normal and moves all extremities Extrem General: Yes full ROM Right lower extremity: full ROM, edema Details: non-pitting and 1+ and lower leg (Normal skin color - pink througho the extremities. Mild Edema, varicos vein) Left lower extremity: full ROM, edema Details: non-pitting and 1+ and lower leg (Normal skin color - pink througho the extremities. Mild Edema, varicos vein) Details: tenderness and non-pitting edema Psych Speech and movement: Normal speech and movement present Assessment & Plan Assessment & Plan (1) PAD (peripheral artery disease): Comment: 07/17/2023 right SFA atherectomy and plasty Code(s): I73.9 - Peripheral vascular disease, unspecified Plan: No signs of visible infection, both lower extremities pink in color, weak pedal pulses. Some Varicose Veins seen, tender to touch. Advised Pt to f/u with PCP for possible Vascular surgery referral Advised Pt if pain worse to go to Emergency room for further examination. Coding Level of Care Code Est Pt Level 3 (35939) Diagnoses PAD (peripheral artery disease) I73.9 Time Spent (min) 15
[2024-01-10 08:10] VITALS: BP 142/90; PULSE 80; TEMP 36.7; O2SAT 97; BMI 31.6
== END 2024-01-10 09:01 | disposition home or self-care (01) ==
PROVIDERS: PCP Nurse Practitioner Family; Visit Provider Nurse Practitioner Family
DX: I73.9 Peripheral vascular disease, unspecified (principal)
CPT/HCPCS: 99213

== ENCOUNTER 2024-01-24 11:49 | Outpatient (AMB) | payer OTHER, SELFPAY ==
--- NOTE | 2024-01-24 12:30 | MHC.PC.OV ---
Vital Signs 01/24/24 12:34 Height 5 ft 10 in Weight 242 lb BMI 34.7 BP 140/80 H Blood Pressure Location Rt brachial Position Sitting Pulse 94 Pulse Source Pulse Oximeter Pulse Oximetry (%) 97 Oxygen Delivery Method Room Air Intake Visit Reasons: Follow up from [place] Intake Note: Patient here to follow up from [place]. Allergies adhesive tape Allergy (Intermediate, Verified 01/24/24 13:08) Rash codeine [Tylenol-Codeine #3] Allergy (Intermediate, Verified 01/24/24 13:08) Rash hydrocodone [Vicodin] Allergy (Intermediate, Verified 01/24/24 13:08) confusion/does not relieve pain morphine Allergy (Intermediate, Verified 01/24/24 13:08) rash diphenhydramine [From Benadryl] Adverse Reaction (Intermediate, Verified 01/24/24 13:08) Itching Medication List - Last Reconciled 01/24/24 by Romulo Ball, COMPUTER SECURITY SPECIALIST- albuterol sulfate 90 mcg/actuation (Ventolin HFA) 2 puffs PO Q4-6H PRN blood sugar diagnostic (FreeStyle Lite Strips) 1 strip miscellaneous TID blood-glucose meter (FreeStyle Lite Meter kit) check sugar twice a day clopidogrel (Plavix) 75 mg PO DAILY dulaglutide 4.5 mg (0.5 mL) subcut QWEEK fluticasone propionate 50 mcg/actuation (Flonase Allergy Relief) 1 spray intranasal DAILY 30 days gemfibrozil 600 mg PO DAILY 90 days glipizide ER 2.5 mg PO DAILY 90 days ibuprofen 800 mg PO TID PRN insulin detemir U-100 65 units (0.65 mL) subcut BID lancets (FreeStyle Lancets) check sugar three times a day lisinopril 10 mg PO DAILY 90 days metformin 1,000 mg PO BID 90 days omeprazole 20 mg PO DAILY 90 days pen needle, diabetic (BD Ultra-Fine Short Pen Needle) twice a day rosuvastatin (Crestor) 40 mg PO DAILY 90 days Tobacco use date assessed: 09/20/23 Dental Screening Dental Screen Date: 09/20/23 HPI Follow up from [place] HPI Details Pt was seen in at a facility in [place] on 12/18. He had a diabetic foot ulcer that he wanted looked at before he went on a cruise. Foot XR showed no fracture or dislocation, mild subcutaneous edema. Ankle XR showed no fracture or dislocation, diffuse lower extremity soft tissue edema. Pt also had a cat bite on his left hand. He was treated for cellulitis and the cat bite with doxycycline and augmentin. Pt was given a Tetanus vaccine. Pt reports that his foot ulcer is looking better. Pt will be following up with vascular on 02/12. Pt reports walking barefoot frequently. Highly encouraged pt to wear footwear due to diabetes, AND TO CHECK HIS FEET REGULARLY. Denies fever, chills, and dizziness. refuses pneumo vaccines [facility] Medical History (Updated 01/24/24 @ 12:57 by TONO Clements-CIRO) Cat bite Diabetes Dysplastic colon polyp Parasomnia Smoker CHF (congestive heart failure) Sleep apnea High cholesterol Hypertension Acid reflux Surgical History History of esophagogastroduodenoscopy (EGD) H/O colonoscopy Hx of rotator cuff surgery H/O resection of small bowel History of colon resection Family History Mother No problems noted. Father No problems noted. Social History Housing: Apartment Housing Other:: mobile home Are you a primary neonatal intensive care nurse to a significant other at home: No Do you presently have visiting nurse or other home services: No Alcohol intake: current Alcohol intake frequency: does not drink Patient Tobacco Use Status: Current everyday Tobacco user Tobacco use type: Cigarette and Cigar Cigarette Packs Per Day: 0.5 Cigarettes Per Day: 5 Years Smoked: 35+ Packs Per Year: 0 Packs per year/per ci.00 e-Cigarette/Vaping Use: Never Used Second Hand Smoke Exposure: No Substance Use Type: Marijuana Current occupational status: unemployed Current occupation: left handed Cognitive needs: No Hearing needs: No Vision needs: No Questionnaire PHQ-9 Over the last 2 weeks, how often have you been bothered by any of the following problems? 93297 - PHQ-9 Billing: Patient declined-do not bill Source: Developed by Drs. Henri Puentes, Cassi B.Rick Seo and colleagues, with an educational arlet from [email or web address]. Thrive Questionnaire Date Thrive assessed: 04/15/21 AUDIT C Alcohol Use Questionnaire (AUDIT-C) 1. How often do you have a drink containing alcohol?: Never 3. How often do you have six or more drinks on one occasion?: Never Total Score: 0 Score Reviewed/Action Taken: No JULIETTE-7 AMB Questionnaire JULIETTE-7 Assessment Billing JULIETTE-7 Assessment Tool: pt declined-do not bill Review of Systems Const Reports as per HPI Physical exam (Primary Care) Vital Signs: Last Vital Signs Pulse 94 01/24/24 12:34 BP 140/80 H 01/24/24 12:34 Pulse Ox 97 01/24/24 12:34 Oxygen Delivery Method Room Air 01/24/24 12:34 BMI result Body Mass Index 34.7 Tobacco/Smoking Status: Tobacco use Status Tobacco use date assessed 09/20/23 01/24/24 12:30 Patient Tobacco Use Status Current everyday Tobacco 01/24/24 12:30 Tobacco use type Cigarette,Cigar 01/24/24 12:30 e-Cigarette/Vaping Use Never Used 01/24/24 12:30 Thrive Assessment: Date of Thrive Assessment Date Thrive assessed 04/15/21 01/24/24 12:30 Const General: cooperative Nutritional Appearance: obese Orientation/consciousness: patient oriented x3 Resp Other: lungs slightly diminished though moving air Effort & Inspection: normal respiratory effort Cardio Rate: regular rate Rhythm: regular rhythm Heart sounds: S1 normal heart sound present and S2 normal heart sound present Neuro General: patient oriented x3 Extrem Other: right foot plantar aspect of 1st MTP joint with small healed ulceration, also noted to plantar aspect of base of 1st toe, no tenderness with palpation, no warmth, feet are extremely dry and dirty, faint edema to ankle region Psych Appearance: grossly normal Mental Status: mental status grossly normal Speech and movement: Normal speech and movement present Affect: normal affect Attitude: cooperative Thought process: Normal thought process present Thought content: Normal thought content present Insight: Good insight present (Psych) Judgement: Good judgement present (Psych) Assessment and Plan Assessment & Plan (1) Diabetes mellitus: Code(s): E11.9 - Type 2 diabetes mellitus without complications (2) Diabetic ulcer of right foot: Code(s): E11.621 - Type 2 diabetes mellitus with foot ulcer; L97.519 - Non-pressure chronic ulcer of other part of right foot with unspecified severity Qualifiers: Diabetes mellitus type: type 2 Diabetic foot ulcer location: toe Non-pressure ulcer stage: unspecified non-pressure ulcer stage Qualified Code(s): E11.621 - Type 2 diabetes mellitus with foot ulcer; L97.519 - Non-pressure chronic ulcer of other part of right foot with unspecified severity Plan: appear heeled, went over importance of tight glucose control, use of footwear (not bare feet). (3) Cat bite: Code(s): W55.01XA - Bitten by cat, initial encounter Plan: no signs of infection (4) Screening PSA (prostate specific antigen): Code(s): Z12.5 - Encounter for screening for malignant neoplasm of prostate Plan The patient agreed to the use of a senior medical transcriptionist for this encounter. Scribed for TONO Adams-CIRO by Wen Cote senior medical transcriptionist, on 01/24/2024 at 12:40 EST. Orders: Orders Comprehensive [place]. Panel Fast Today E11.9 - Type 2 diabetes mellitus without complications TSH reflex Free T4 Today E11.9 - Type 2 diabetes mellitus without complications UA CC w/rflx Micro + Cult Today E11.9 - Type 2 diabetes mellitus without complications Prostate Specific Antigen Scr Today Z12.5 - Encounter for screening for malignant neoplasm of prostate Complete Blood Count Auto Diff Today E11.9 - Type 2 diabetes mellitus without complications Lipid Panel Today E11.9 - Type 2 diabetes mellitus without complications Microalbumin, Random (w Creat) Today E11.9 - Type 2 diabetes mellitus without complications Hemoglobin A1c Today E11.9 - Type 2 diabetes mellitus without complications Coding Level of Care Code Est Pt Level 3 (38373) Diagnoses Diabetes mellitus E11.9 Diabetic ulcer of toe of right foot associated with type 2 diabetes mellitus, unspecified ulcer stage E11.621; L97.519 Diabetes mellitus type: type 2 Diabetic foot ulcer location: toe Non-pressure ulcer stage: unspecified non-pressure ulcer stage Cat bite W55.01XA Screening PSA (prostate specific antigen) Z12.5
[2024-01-24 12:34] VITALS: BP 140/80; PULSE 94; O2SAT 97; BMI 34.7
== END 2024-01-24 13:35 | disposition home or self-care (01) ==
PROVIDERS: PCP Nurse Practitioner Family; Visit Provider Nurse Practitioner Family
DX: E11.621 Type 2 diabetes mellitus with foot ulcer (principal); L97.519 Non-pressure chronic ulcer of other part of right foot with unspecified severity; W55.01XA Bitten by cat, initial encounter; Z12.5 Encounter for screening for malignant neoplasm of prostate
CPT/HCPCS: 99213

== ENCOUNTER 2024-03-13 09:37 | Outpatient (REF) | payer OTHER, SELFPAY ==
[2024-03-13 13:18] LABS: MANUAL DIFF FLAG NO
[2024-03-13 13:23] LABS: Basophils Percent Auto 0.6 % (0-2); Eosinophils Absolute Auto 0.2 X10*3/uL (0.0-0.4); Eosinophils Percent Auto 2.2 % (0-4); Hematocrit 50.6 % (42.0-52.0); Imm Gran Abs Auto 0.03 X10*3/uL (0.00-0.03); Imm Gran Pct Auto 0.4 % (0.0-0.4); Lymphocytes Absolute Auto 1.8 X10*3/uL (1.2-4.9); Lymphocytes Percent Auto 25.6 % (20-40); Mean Corpuscular HGB Conc 33.6 g/dl (31.0-36.0); Mean Corpuscular Hemoglobin 32.2 pg (27.0-33.0); Mean Corpuscular Volume 95.8 fL (80.0-98.0); Mean Platelet Volume 11.7 fL (9.4-12.4); Monocytes Absolute Auto 0.5 X10*3/uL (0.1-1.2); Monocytes Percent Auto 7.2 % (2-11); Neutrophils Absolute Auto 4.6 x10*3/uL (2.0-8.3); Platelet Count 184 X10*3/uL (160-400); Red Blood Count 5.28 X10*6/uL (4.60-5.80); White Blood Count 7.2 X10*3/uL (4.8-10.8)
[2024-03-13 13:29] LABS: Appearance Urine Clear; Color Urine Yellow; Glucose Urine UA >=1000 mg/dL (Negative); Leukocyte Esterase Urine Negative (Negative); Nitrite Urine Negative (Negative); Specific Gravity - Urine >= 1.030 (1.005-1.025); UMIC TRIGGER UACC YES; Urine Blood Moderate (2+) (Negative); Urine Ketones Negative (Negative); Urine Protein Trace mg/dL (Neg-Trace)
[2024-03-13 13:32] LABS: Bacteria Urine None Seen (None Seen); Hyaline Casts Urine 0-2 /LPF (0-2); RBC Urine 0-2 /HPF (0-2); Squamous Epithelial Cell Urine 0-2 /HPF (0-2); WBC Urine 0-5 /HPF (0-5)
[2024-03-13 13:40] LABS: Estimated Average Glucose 278 mg/dL; Hemoglobin A1c % 11.3 % (<6.0)
[2024-03-13 14:05] LABS: Alanine Aminotransferase 12 U/L (0-40); Albumin Level 3.9 g/dL (3.5-5.0); Alkaline Phosphatase 91 U/L (39-117); Anion Gap 14 (12-20); Aspartate Amino Transferase 11 U/L (5-37); Bilirubin Total 0.3 mg/dL (0.0-1.0); Blood Urea Nitrogen 15 mg/dL (9-16); Calcium 9.7 mg/dL (8.4-10.2); Carbon Dioxide 25 mmol/L (22-29); Chloride 103 mmol/L (96-108); Cholesterol 278 mg/dL (<200); Estimated Glomerular Filt Rate > 60; Glucose Fasting 312 mg/dL (60-99); HDL Cholesterol 49 mg/dL (>40); LDL Cholesterol Calculated 190 mg/dL (<100); Potassium 4.6 mmol/L (3.3-5.1); Sodium 137 mmol/L (135-145); Total Protein 7.5 g/dL (6.5-8.0); Triglycerides 199 mg/dL (<150)
[2024-03-13 14:06] LABS: Creatinine Urine 107.25 mg/dL; Microalbum/Creatinine Ratio Ur 182.7 ug/mg cr (<30)
[2024-03-13 14:08] LABS: Prostate Specific Antigen Scr 0.38 ng/mL (<0.05-4.0)
[2024-03-13 14:09] LABS: TSH reflex Free T4 1.64 uIU/mL (0.32-4.0)
[2024-03-13 14:13] LABS: Urine Cytology See Pathology rpt
== END 2024-03-13 09:38 | disposition home or self-care (01) ==
LOC: HO.HMGCLDS 09:37
PROVIDERS: PCP Nurse Practitioner Family; Visit Provider Nurse Practitioner Family
DX: Z12.5 Encounter for screening for malignant neoplasm of prostate (principal); Z13.6 Encounter for screening for cardiovascular disorders; R31.9 Hematuria, unspecified; E11.9 Type 2 diabetes mellitus without complications
CPT/HCPCS: 36415; 80053; 80061; 81001; 82043; 82570; 83036; 84153; 84443; 85025; 88112

== ENCOUNTER 2024-05-14 14:28 | Outpatient (REF) | payer OTHER, SELFPAY ==
--- NOTE | ~2024-05-14 | CT_ITS ---
EXAMINATION: CT ABDOMEN AND PELVIS WITHOUT AND WITH CONTRAST CLINICAL INFORMATION: Hematuria; nicotine dependence (cigarettes). COMPARISON: None available. TECHNIQUE: Multidetector volumetric imaging was performed of the abdomen and pelvis before and after the IV administration of 85 mL of Omnipaque 350 intravenous contrast. Examination was performed and a CT urogram protocol. Sagittal and coronal reformatted acquisitions were obtained on the technologist's workstation from the axial data set. This CT examination was performed using dose optimization techniques as appropriate, variously including the following: *Automated exposure control *Adjustment of mA and/or kV according to patient size (this includes techniques or standardized protocols for targeted exams where dose is matched to indication/reason for exam; i.e. extremities or head) *Use of iterative reconstruction technique DLP: 1341 mGy-cm FINDINGS: LUNG BASES: -Imaged lung bases are clear. Heart size normal. LIVER, GALLBLADDER, AND BILIARY TREE: - -There are is hepatic steatosis. There are findings of background nodularity to liver contour suggesting early cirrhotic change. There is mild liver enlargement. Subtle 8 mm subcapsular focus of enhancement in segment 7 (series 8, image 22) is nonspecific, however most likely represents a transient attenuation defect or focus of portal venous shunting. No correlate on the noncontrast. This is felt to be benign. -The gallbladder is unremarkable with no evidence of radiopaque gallstones, gallbladder wall thickening, or obvious pericholecystic inflammatory changes. -There is no biliary ductal dilatation either intrahepatic or extrahepatic. PANCREAS: Mild atrophy. No focal abnormality. SPLEEN: Normal. No splenic enlargement. ADRENAL GLANDS: Unremarkable KIDNEYS AND URETERS: -3 mm nonobstructing calculus right kidney lower pole. -3 mm nonobstructing calculus left kidney upper pole, and lower pole. -There is a 1.5 cm cyst in the upper pole right kidney. -There is a 2.7 cm cortical cyst lower pole right kidney. -There is a 2.5 cm parapelvic cyst lower pole left kidney. 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 -No hydronephrosis or mass. No additional pyelocalyceal filling defects. -Ureters are nondilated with no filling defect. BLADDER: Normal. No bladder masses or wall thickening. GASTROINTESTINAL TRACT: -There has been a right partial colectomy with ileocolonic anastomosis in the subhepatic space. No complication evident. 1 -There are rare colonic diverticula. -No rectal abnormalities. -Small bowel is normal in caliber and course. -Suspect a small type I hiatus hernia. Stomach otherwise normal. Duodenal sweep normal. ABDOMINAL WALL: -Tiny bilateral inguinal hernias are present. -Laparotomy changes. LYMPH NODES: Normal VASCULAR: -Aorta normal in caliber. No aneurysms. -Moderate to severe calcific atheromatous change. PELVIC VISCERA: -Normal prostate. - Calcification of the vas deferens. Findings suggest diabetes. OSSEOUS STRUCTURES: -No suspicious lytic or blastic bone lesions. -Moderate to advanced spinal degenerative changes. Mild levoconvex lumbar scoliosis. -Moderate to severe bilateral hip joint and SI joint degenerative changes CT/CT abdomen pelvis wo/w IV con IMPRESSION: 1. 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 2. Small bilateral nonobstructing renal calculi. 3. No suspicious masses of the kidneys, bladder, or ureters. 4. Hepatic enlargement, steatosis, and findings of probable early sclerosis. No suspicious focal abnormality. Probable 8 mm ABIMAEL segment 7. 5. Prior descending colon resection with ileocolonic anastomosis; no complication evident. 6. Additional ancillary findings as discussed in the body of the report. Electronically signed by: Gilberto Chauhan MD 07/05/2024 04:21 PM EDT
[2024-05-14 15:18] LABS: Anion Gap 15 (12-20); Blood Urea Nitrogen 12 mg/dL (9-16); Calcium 9.9 mg/dL (8.4-10.2); Carbon Dioxide 27 mmol/L (22-29); Chloride 103 mmol/L (96-108); Estimated Glomerular Filt Rate > 60; Potassium 5.8 mmol/L (3.3-5.1); Sodium 139 mmol/L (135-145)
[2024-05-14] MEDS: iohexoL 350 MG/ML 75 ML INFUS..BTL 85 ML IV (16:14)
[2024-05-14 16:27] LABS: Glucose Random 424 mg/dL (60-115)
== END 2024-05-14 14:29 | disposition home or self-care (01) ==
LOC: HO.CT 14:28
PROVIDERS: PCP Nurse Practitioner Family; Visit Provider Nurse Practitioner Family
DX: R31.9 Hematuria, unspecified (principal); E11.9 Type 2 diabetes mellitus without complications; F17.200 Nicotine dependence, unspecified, uncomplicated
CPT/HCPCS: 36415; 74178; 80048; Q9967

== ENCOUNTER → 2024-05-14 14:30 | Outpatient (BNV) | payer OTHER, SELFPAY | PROVIDERS: PCP Nurse Practitioner Family; Visit Provider Radiology Diagnostic Radiology | DX: R31.9 Hematuria, unspecified (principal) | CPT/HCPCS: 74178 ==

== ENCOUNTER 2024-05-22 09:23 | Outpatient (REF) | payer OTHER, SELFPAY ==
[2024-05-22 14:44] LABS: Anion Gap 16 (12-20); Carbon Dioxide 27 mmol/L (22-29); Chloride 102 mmol/L (96-108); Potassium 4.9 mmol/L (3.3-5.1); Sodium 140 mmol/L (135-145)
== END 2024-05-22 09:24 | disposition home or self-care (01) ==
LOC: HO.HMGCLDS 09:23
PROVIDERS: PCP Nurse Practitioner Family; Visit Provider Nurse Practitioner Family
DX: E87.5 Hyperkalemia (principal)
CPT/HCPCS: 36415; 80051

== ENCOUNTER 2024-07-29 15:13 | Outpatient (AMB) | payer OTHER, SELFPAY ==
[2024-07-29 15:15] VITALS: BP 132/80; PULSE 87; O2SAT 96; BMI 36.3
--- NOTE | 2024-07-29 15:15 | A.OFFPC_ITS ---
Vital Signs 07/29/24 15:15 Height 5 ft 10 in Weight 253 lb BMI 36.3 BP 132/80 Blood Pressure Location Rt brachial Position Sitting Pulse 87 Pulse Source Pulse Oximeter Pulse Oximetry (%) 96 Intake Visit Reasons: uncontrolled DM Intake Note: pt is here for uncontrolled DM Senior Patient Account Representative Required: No Accompanied by: Self / Same As Patient Allergies adhesive tape Allergy (Intermediate, Verified 07/29/24 16:46) Rash codeine [Tylenol-Codeine #3] Allergy (Intermediate, Verified 07/29/24 16:46) Rash hydrocodone [Vicodin] Allergy (Intermediate, Verified 07/29/24 16:46) confusion/does not relieve pain morphine Allergy (Intermediate, Verified 07/29/24 16:46) rash diphenhydramine [From Benadryl] Adverse Reaction (Intermediate, Verified 07/29/24 16:46) Itching Medication List - Last Reconciled 07/29/24 by Romulo Ball, YOUTH CARE SPECIALIST- albuterol sulfate 90 mcg/actuation (Ventolin HFA) 2 puffs PO Q4-6H PRN blood sugar diagnostic (FreeStyle Lite Strips) 1 strip miscellaneous TID blood-glucose meter (FreeStyle Lite Meter kit) check sugar twice a day dulaglutide 4.5 mg (0.5 mL) subcut QWEEK [exterior ramp As directed] fluticasone propionate 50 mcg/actuation (Flonase Allergy Relief) 1 spray intranasal DAILY 30 days gemfibrozil 600 mg PO DAILY 90 days glipizide ER 2.5 mg PO DAILY 90 days ibuprofen 800 mg PO TID PRN insulin detemir U-100 (Levemir FlexTouch U-100 Insulin) 100 units subcut BEDTIME lancets (FreeStyle Lancets) check sugar three times a day lisinopril 20 mg PO DAILY 90 days metformin 1,000 mg PO BID 90 days [mobility scooter As directed] omeprazole 20 mg PO DAILY 90 days pen needle, diabetic (BD Ultra-Fine Short Pen Needle) twice a day rosuvastatin (Crestor) 40 mg PO DAILY 90 days Tobacco use date assessed: 09/20/23 Dental Screening Dental Screen Date: 09/20/23 HPI uncontrolled DM HPI Details Pt is a diabetic, on an MIKEY and a statin. A1C in office today is 9.9. Microalbumin is up to date. Denies polyuria, polydipsia, does report severe neuropathy. Pt denies any signs and symptoms of hypoglycemia and does know how to correct it. Will increase glipizide from 2.5mg to 5mg and increase levemir from 80 to 85 units. Eye exam is up to date. Will refer to endo for further diabetes management. Pt is unsteady with ambulation, working on getting him a scooter for home use. Highly encouraged pt to check his feet regularly and to avoid being barefoot. [facility] Medical History (Updated 07/29/24 @ 15:24 by Romulo Ball, [facility]) Nicotine dependence, cigarettes, uncomplicated Cat bite Diabetes Dysplastic colon polyp Parasomnia CHF (congestive heart failure) Sleep apnea High cholesterol Hypertension Acid reflux Surgical History History of esophagogastroduodenoscopy (EGD) H/O colonoscopy Hx of rotator cuff surgery H/O resection of small bowel History of colon resection Family History Mother No problems noted. Father No problems noted. Social History Housing: Apartment Housing Other:: mobile home Are you a primary daycare provider to a significant other at home: No Do you presently have visiting nurse or other home services: No Alcohol intake: current Alcohol intake frequency: does not drink Patient Tobacco Use Status: Current everyday Tobacco user Tobacco use type: Cigarette and Cigar Cigarette Packs Per Day: 0.5 Cigarettes Per Day: 5 Years Smoked: 35+ Packs Per Year: 0 Packs per year/per ci.00 e-Cigarette/Vaping Use: Never Used Second Hand Smoke Exposure: No Substance Use Type: Marijuana Current occupational status: unemployed Current occupation: left handed Cognitive needs: No Hearing needs: No Vision needs: No Questionnaire PHQ-9 Over the last 2 weeks, how often have you been bothered by any of the following problems? 92186 - PHQ-9 Billing: Patient declined-do not bill Source: Developed by Drs. Henri Puentes, Cassi Wisdom, Rick Rick and colleagues, with an educational arlet from [employer]. Thrive Questionnaire Date Thrive assessed: 07/29/24 I am a: Patient What is your living situation today?: I have a steady place to live Within the past 12 months, did the food you bought not last and you didn't have the money to get more?: Often true Within the past 12 months, did you worry whether your food would run out before you got money to buy more?: Sometimes True Do you have trouble paying for medicines?: I choose not to answer this question Do you have trouble getting transportation to medical appointments?: I choose not to answer this question Do you have trouble paying your heating and electricity bill?: I choose not to answer this question Do you have trouble taking care of your child, family member or friend?: I choose not to answer this question Do you have trouble with day-to-day activities such as bathing, preparing meals, shopping, managing finances, etc.?: I choose not to answer this question Are you currently unemployed and looking for a job?: I choose not to answer this question Are you interested in more education?: I choose not to answer this question Please select the resources that you would like help with: None Currently or been in a relationship where the following occur: I choose not to answer THRIVE Score: 2 AUDIT C Alcohol Use Questionnaire (AUDIT-C) 1. How often do you have a drink containing alcohol?: Never 3. How often do you have six or more drinks on one occasion?: Never Total Score: 0 Score Reviewed/Action Taken: Yes JULIETTE-7 AMB Questionnaire JULIETTE-7 Date JULIETTE - 7 assessed: 07/29/24 Feeling nervous, anxious, or on edge: 0 = Not at all Not being able to stop or control worryin = Not at all Worrying too much about different things: 0 = Not at all Trouble relaxin = Not at all Being so restless that it is hard to sit still: 0 = Not at all Becoming easily annoyed or irritable: 0 = Not at all Feeling afraid as if something awful might happen: 0 = Not at all Total JULIETTE-7 score (0-4 normal; 5-9 mild; 10-14 moderate; 15-21 severe): 0 Source: Developed by Drs. Henri Puentes, Cassi Wisdom, Rick Rick and colleagues, with an educational arlet from [employer]. JULIETTE-7 Assessment Billing JULIETTE-7 Assessment Tool: JULIETTE-7 Assessment 09004 Review of Systems Const Reports as per HPI Physical exam (Primary Care) Vital Signs: Last Vital Signs Pulse 87 07/29/24 15:15 BP 132/80 07/29/24 15:15 Pulse Ox 96 07/29/24 15:15 BMI result Body Mass Index 36.3 Tobacco/Smoking Status: Tobacco use Status Tobacco use date assessed 09/20/23 07/29/24 15:17 Patient Tobacco Use Status Current everyday Tobacco 07/29/24 15:17 Tobacco use type Cigarette,Cigar 07/29/24 15:17 e-Cigarette/Vaping Use Never Used 07/29/24 15:17 Thrive Assessment: Date of Thrive Assessment Date Thrive assessed 07/29/24 07/29/24 15:17 Currently or been in a relationship where the following occur: I choose not to answer Const General: cooperative Nutritional Appearance: obese Orientation/consciousness: patient oriented x3 Resp Other: slight wheezes Effort & Inspection: normal respiratory effort Auscultation: diminished lung sounds Cardio Rate: regular rate Rhythm: regular rhythm Heart sounds: S1 normal heart sound present and S2 normal heart sound present Neuro General: patient oriented x3 Extrem Other: bilat feet: no sensation with use of monofilament, weak dorsalis pedis pulse (right>left), calluses to bilat big toes, multiple small scabbed linear cuts throughout bilat ankles and shins (cat scratches), no signs of infection Psych Appearance: grossly normal Mental Status: mental status grossly normal Speech and movement: Normal speech and movement present Affect: normal affect Attitude: cooperative Thought process: Normal thought process present Thought content: Normal thought content present Insight: Good insight present (Psych) Judgement: Good judgement present (Psych) Results AMB Hemoglobin A1c AMB Hemoglobin A1c 9.9 % Last Edit by Frank Mo CMA on 07/29/24 15: 36 Results Reviewed Results Reviewed: Laboratory Last Values Hgb A1c (Clinic) 9.9 % (4.0-6.0) H 07/29/24 15:36 Coding Level of Care Code Est Pt Level 3 (05147) Diagnoses Diabetes E11.9 Additional Codes JULIETTE-7 Assessment Billing - JULIETTE-7 Assessment Tool: JULIETTE-7 Assessment 75910 ([id number]) Assessment & Plan Assessment & Plan (1) Diabetes: Code(s): E11.9 - Type 2 diabetes mellitus without complications Category: Medical Plan: Labs ordered, increasing glipizide and levemir Plan The patient agreed to the use of a medical insurance claims processor for this encounter. Scribed for TONO Adams-CIOR by Wen Cote medical insurance claims processor, on 07/29/2024 at 15:30 EST. Orders: Orders Complete Blood Count Auto Diff Today E11.9 - Type 2 diabetes mellitus without complications TSH reflex Free T4 Today E11.9 - Type 2 diabetes mellitus without complications Comprehensive [place]. Panel Fast Today E11.9 - Type 2 diabetes mellitus without complications UA CC w/rflx Micro + Cult Today E11.9 - Type 2 diabetes mellitus without complications Lipid Panel Today E11.9 - Type 2 diabetes mellitus without complications AMB Hemoglobin A1c Today Z13.9 - Encounter for screening, unspecified Referrals Endocrinology Referral E11.9 - Type 2 diabetes mellitus without complications Medications: New insulin detemir U-100 (Levemir FlexTouch U-100 Insulin) 80 units (0.8 mL) subcut BID 15 mL 2RF insulin detemir U-100 (Levemir FlexTouch U-100 Insulin) 85 units (0.85 mL) subcut BID 15 mL 2RF Changed From glipizide ER 2.5 mg PO DAILY 90 days 90 tabs 0RF To glipizide ER 5 mg PO DAILY 90 tabs 0RF 90 days
== END 2024-07-29 16:41 | disposition home or self-care (01) ==
PROVIDERS: PCP Nurse Practitioner Family; Visit Provider Nurse Practitioner Family
DX: Z13.9 Encounter for screening, unspecified (principal); E11.9 Type 2 diabetes mellitus without complications

== ENCOUNTER → 2024-07-29 15:13 | Outpatient (BNVA) | payer OTHER, SELFPAY | PROVIDERS: PCP Nurse Practitioner Family; Visit Provider Nurse Practitioner Family | DX: E11.9 Type 2 diabetes mellitus without complications (principal) | CPT/HCPCS: 83036; 96127; 99212 ==

== ENCOUNTER 2024-08-14 12:44 | Outpatient (AMB) | payer OTHER, SELFPAY ==
--- NOTE | 2024-08-14 12:54 | MHC.OFFVIS ---
Vital Signs 08/14/24 12:58 Height 5 ft 10 in Weight 249 lb 9.012 oz BMI 35.8 BP 144/78 H Blood Pressure Location Rt brachial Position Sitting Pulse 93 Pulse Source Pulse Oximeter Intake Visit Reasons: Type 2 DM-confirmed Intake Note: New patient presents today for D2MT office visit. Last Diabetic Eye exam: almost 1 year, has yearly appointments Last Podiatry Visit: Does not see a Central Service Technician Random Glucose: 166 mg/dl HgA1c: 9.9% 07/29/24 [employer] Consultant Required: No Accompanied by: Self / Same As Patient Allergies adhesive tape Allergy (Intermediate, Verified 08/14/24 12:59) Rash codeine [Tylenol-Codeine #3] Allergy (Intermediate, Verified 08/14/24 12:59) Rash hydrocodone [Vicodin] Allergy (Intermediate, Verified 08/14/24 12:59) confusion/does not relieve pain morphine Allergy (Intermediate, Verified 08/14/24 12:59) rash diphenhydramine [From Benadryl] Adverse Reaction (Intermediate, Verified 08/14/24 12:59) Itching Medication List - Last Reconciled 08/14/24 by Meera Carbajal MD albuterol sulfate 90 mcg/actuation (Ventolin HFA) 2 puffs PO Q4-6H PRN blood sugar diagnostic (FreeStyle Lite Strips) 1 strip miscellaneous TID blood-glucose meter (FreeStyle Lite Meter kit) check sugar twice a day dulaglutide 4.5 mg (0.5 mL) subcut QWEEK [exterior ramp As directed] fluticasone propionate 50 mcg/actuation (Flonase Allergy Relief) 1 spray intranasal DAILY 30 days gemfibrozil 600 mg PO DAILY 90 days glipizide ER 5 mg PO DAILY 90 days ibuprofen 800 mg PO TID PRN insulin glargine (Lantus Solostar U-100 Insulin) 90 units subcut ONCE lancets (FreeStyle Lancets) check sugar three times a day lisinopril 20 mg PO DAILY 90 days metformin 1,000 mg PO BID 90 days [mobility scooter As directed] omeprazole 20 mg PO DAILY 90 days pen needle, diabetic (BD Ultra-Fine Short Pen Needle) twice a day rosuvastatin (Crestor) 40 mg PO DAILY 90 days HPI Comments Details: 58-year-old male with past medical history significant for hypertension, hyperlipidemia, peripheral artery disease, GERD, coming in today for initial evaluation of type 2 diabetes mellitus History of diabetes Diagnosed in his early 40s Been on insulin for at least the last 10 years Prior therapy: He was on levemir 85 units twice a day however recently sometime around fall 2023 got switched to Lantus whihc he is now taking 90 units once daily since Jul 2024 Current regimen: Trulicity 4.5 mg weekly Mondays Metformin 1000 b.i.d. Lantus 90 units once daily bedtime Glipizide 5 mg extended release daily He is good about taking the insulin and Trulicity , sometimes misses the pills once a week Random Glucose: 166 mg/dl chicken pot pie last night around 7 pm HgA1c: 9.9% 07/29/24 Denies any symptoms of hyperglycemia including polyphagia, polyuria, polydipsia. Denies any hypoglycemic symptoms. Nothing less than 70. He says he usually doesnt go below 160. SMBG's Check with meter three times a day , didnt Fasting : 200s 1 hours after 300s post meal Diet: Skips breakfast most days Between 12 and 1: gets moms meals , hamburger or egg and cheese omeltte with apple sauce with 2 sticks of turkish toast Sometimes snacks in between: ice cream, eddie cookies , Around 7 pm Has a soda 12 oz can coke twice a day. On disability since 10 to 12 years. Sleeps a lot not active. Does do the home chores himself. Very little walking. Bad knees and back cause him to have pain. Vaccines: Complications Eye exam: Last Diabetic Eye exam: almost 1 year, has yearly appointments, denies history of retinopathy Last Podiatry Visit: Does not see a Central Service Technician Neuropathy: Has severe neuropathy with a history of peripheral artery disease, status post angiography in 2022 Kidney disease: EGFR greater than 60, creatinine 0.99 in May 2024, urine microalbumin/creatinine ratio elevated at 182.7 in March 2024 Macrovascular complications: Peripheral artery disease, has had an angioplasty in 2022 Statin: On rosuvastatin 40 mg daily and gemfibrozil 600 mg b.i.d., LDL 190 mg/dL from March 2024 MIKEY/ARB: On lisinopril 20 mg daily, Exercise: None Physical exam General: sitting comfortably in no acute distress HEENT: normocephalic/atraumatic, Neck: supple Cardiac: normal heart sounds Pulm: normal breath sounds B/L, no added breath sounds Abd: not distended, no tenderness Extremities: Bilateral pitting edema Foot exam: Very poor foot care, has calluses, skin sloughing, no sensation to monofilament, no sensation to vibration, intact pulses in feet are warm Laboratory Tests 10/08/21 05/27/22 03/08/23 11:28 11:05 12:24 Plt Count Creatinine Estimated GFR Random Glucose Fasting Glucose Estimat Average Glucose Hgb A1c (Clinic) 7.9 H AST ALT Triglycerides Cholesterol LDL Cholesterol, Calc HDL Cholesterol TSH Urine Creatinine 152.98 218.45 Urine Microalbumin 53.0 35.0 Microalb/Creat Ratio 34.6 16.0 06/12/23 09/20/23 03/13/24 13:32 10:03 09:46 Plt Count 184 Creatinine Estimated GFR Random Glucose Fasting Glucose 312 H Estimat Average Glucose 278 Hgb A1c (Clinic) 9.1 H 8.1 H AST 11 ALT 12 Triglycerides 199 H Cholesterol 278 H LDL Cholesterol, Calc 190 H HDL Cholesterol 49 TSH 1.64 Urine Creatinine Urine Microalbumin Microalb/Creat Ratio 03/13/24 05/14/24 07/29/24 09:55 14:53 15:36 Plt Count Creatinine 0.99 Estimated GFR > 60 Random Glucose 424 H* Fasting Glucose Estimat Average Glucose Hgb A1c (Clinic) 9.9 H AST ALT Triglycerides Cholesterol LDL Cholesterol, Calc HDL Cholesterol TSH Urine Creatinine 107.25 Urine Microalbumin 196.0 Microalb/Creat Ratio 182.7 H [facility] Medical History (Updated 08/14/24 @ 13:09 by Meera Carbajal MD) Obesity (BMI 30-39.9) Nicotine dependence, cigarettes, uncomplicated Cat bite Diabetes Dysplastic colon polyp Parasomnia CHF (congestive heart failure) Sleep apnea High cholesterol Hypertension Acid reflux Surgical History History of esophagogastroduodenoscopy (EGD) H/O colonoscopy Hx of rotator cuff surgery H/O resection of small bowel History of colon resection Family History Mother No problems noted. Father No problems noted. Social History Housing: Apartment Housing Other:: mobile home Are you a primary career development manager to a significant other at home: No Do you presently have visiting nurse or other home services: No Alcohol intake: current Alcohol intake frequency: does not drink Patient Tobacco Use Status: Current everyday Tobacco user Tobacco use type: Cigarette and Cigar Cigarette Packs Per Day: 0.5 Cigarettes Per Day: 5 Years Smoked: 35+ e-Cigarette/Vaping Use: Never Used Second Hand Smoke Exposure: No Substance Use Type: Marijuana Current occupational status: unemployed Current occupation: left handed Cognitive needs: No Hearing needs: No Vision needs: No Physical Exam Vital Signs: Last Vital Signs Pulse 93 08/14/24 12:58 BP 144/78 H 08/14/24 12:58 BMI result Body Mass Index 35.8 Assessment & Plan Assessment & Plan (1) Uncontrolled diabetes mellitus: Code(s): E11.65 - Type 2 diabetes mellitus with hyperglycemia Category: Medical Qualifiers: Diabetes mellitus type: type 2 Glycemic state: with hyperglycemia Qualified Code(s): E11.65 - Type 2 diabetes mellitus with hyperglycemia Plan: See below (2) Diabetes mellitus: Code(s): E11.9 - Type 2 diabetes mellitus without complications Category: Medical Qualifiers: Diabetes mellitus complication detail: with peripheral angiopathy without gangrene Diabetes mellitus complication status: with circulatory complication Diabetes mellitus fdc insulin use: with terminal supervisor use Diabetes mellitus type: type 2 Qualified Code(s): E11.51 - Type 2 diabetes mellitus with diabetic peripheral angiopathy without gangrene; Z79.4 - shelter (current) use of insulin Plan: 58-year-old male with past medical history significant for peripheral artery disease, hypertension, hyperlipidemia, GERD coming in today for initial evaluation of type 2 diabetes mellitus with hyperglycemia with long-term insulin use with complications of peripheral vascular disease. Blood sugars very uncontrolled in the 200s and 300s, he did not bring his meter today. Stressed importance of bringing Glucometer to these appointments. A1c elevated at 9.9% in July 2024. We will start him on some short-acting insulin given the level of hyperglycemia. Eventually we will plan to add as an SGLT2 inhibitor but we will hold off now given the level of hyperglycemia. I will also switch him over from Trulicity to Ozempic given he has failed Trulicity as he has gained 20 lb in the last 3-4 months despite being on Trulicity highest dose. Plan: -stopped glipizide -continue insulin Lantus 90 units daily -start Humalog KwikPen 6 units daily before supper -switch from Trulicity 4.5 mg weekly to Ozempic 1 mg weekly, failed Trulicity, after 6-8 weeks and will plan to titrate Ozempic up to 2 mg dose -continue metformin 1000 mg b.i.d. -prescribed freestyle Jori, referral placed for diabetes education -discussed complications of uncontrolled hyperglycemia including stroke, ND, amputations, gangrene, microvascular complications -discussed hypoglycemic treatment teaching -podiatry referral placed -counseled about adverse effects of smoking and advised to quit smoking -extensively advised to give up soda, twisting department end finder referral placed (3) Dyslipidemia: Code(s): E78.5 - Hyperlipidemia, unspecified Category: Medical Plan: LDL above goal at 190 mg/dL from summer 2023. Currently on rosuvastatin 40 mg daily and gemma for personal 600 mg b.i.d.. Given the medication changes above, we will hold off on starting Zetia today, however we will plan to add this to his regimen at the next visit. (4) Hypertension: Code(s): I10 - Essential (primary) hypertension Category: Medical Qualifiers: Hypertension type: primary hypertension Qualified Code(s): I10 - Essential (primary) hypertension Plan: Blood pressure above goal, currently on lisinopril 20 mg daily. Since this was my 1st visit with him, we will continue to monitor blood pressure but will likely need more medications. (5) Obesity (BMI 30-39.9): Code(s): E66.9 - Obesity, unspecified Category: Medical Plan: BMI 35.8 kg per m2. Current weight 249 lb. He has gained 20 lb over the last 3-4 months despite being on Trulicity. He has failed Trulicity. Switch over from Trulicity to Ozempic 1 mg weekly with plan for up titration of Ozempic in the next few weeks Referral for twisting department end finder placed Plan I spent 60 minutes in reviewing the record, seeing the patient and documenting in the medical record. Orders: Referrals Podiatry Referral E11.65 - Type 2 diabetes mellitus with hyperglycemia Diabetes Education Referral E11.65 - Type 2 diabetes mellitus with hyperglycemia Central Sterile Tech Nutrition Referral E11.9 - Type 2 diabetes mellitus without complications Medications: New blood-glucose sensor (FreeStyle Jori 3 Sensor device) As directed 6 ea 3RF blood-glucose meter,continuous (FreeStyle Jori 3 [place]) As directed 1 ea 0RF pen needle, diabetic (BD Ultra-Fine Short Pen Needle) to inject insulin twice daily 100 ea 7RF semaglutide (Ozempic) 1 mg (0.75 mL) subcut QWEEK 3 mL 7RF insulin lispro (Humalog KwikPen (U-100) Insulin) Inject once daily 15 mins prior to supper 6 units (0.06 mL) subcut DAILY 15 mL 6RF Discontinued glipizide ER Discontinued Reason: No Longer Medically Relevant 5 mg PO DAILY 90 days 90 tabs 0RF Patient Instructions: STOP Glipizide Start insulin humalog kiwkpen 15 mins daily before your supper Continue insulin Lantus 90 units daily Switch from Trulicity to Ozempic 1 mg weekly injection once you get it Get free style jori sensor from your pharmacy and our educator will help you wear it at their appointment See our educator See our twisting department end finder See the foot doctor, they shoudl call you to schedule an appointment Follow up with me in 6 weeks Rule of 15 Treatment for Hypoglycemia (Low blood sugar) If your blood glucose is low (70 and below)*, follow the steps below to treat: Eat or drink something from the list below equal to 15 grams of carbohydrate (carb). Rest for 15 minutes Re-check your blood glucose. If it is still low, (below 70), repeat step 1 above. ? If your next meal is more than an hour away, you will need to eat one carbohydrate choice as a snack to keep your blood glucose from going low again. ?If you can't figure out why you have low blood glucose, call your healthcare provider, as your medicine may need to be adjusted. ?Always carry something with you to treat an insulin reaction. Use food from the list below. ? Foods equal to One Carbohydrate Choice (15 grams of carbohydrate): 3 Glucose ?tablets or 4 Dextrose tablets 4 ounces of fruit juice 5-6 ounces (about 1/2 can) of regular soda such as Coke or Pepsi ? 7-8 gummy or regular Life Savers ? 1 Tbsp. of sugar or jelly NOTE: If your blood sugar is less than 50, double the portion above for a total of 30 gm. ?Carbohydrate. ? Follow meal plan of 45-60 g of consistent carbohydrates at 3 meals each day and 15 g of carbohydrate at 1-2 snacks each day. As discussed quit soda Coding Level of Care Code New Pt Level 5 (84777) Complex EM visit Add On G2211 Diagnoses Uncontrolled type 2 diabetes mellitus with hyperglycemia E11.65 Diabetes mellitus type: type 2 Glycemic state: with hyperglycemia Type 2 diabetes mellitus with diabetic peripheral angiopathy without gangrene, with long-term current use of insulin E11.51; Z79.4 Diabetes mellitus complication detail: with peripheral angiopathy without gangrene Diabetes mellitus complication status: with circulatory complication Diabetes mellitus terminal supervisor insulin use: with fdc use Diabetes mellitus type: type 2 Dyslipidemia E78.5 Primary hypertension I10 Hypertension type: primary hypertension Obesity (BMI 30-39.9) E66.9 Time Spent (min) 60
[2024-08-14 12:58] VITALS: BP 144/78; PULSE 93; BMI 35.8
[2024-08-14 13:11] LABS: Glucose, Whole Blood 166 mg/dL (60-115)
--- OUTSIDE RECORDS SUMMARY | 2024-08-20 19:14 | XMS_ITS | Data Portability ---
Author Organization [facility] [place] - [employer] Address [address] [place] [id number] Care Team Providers Care Base Filler Name Role Phone [facility] Referring Provider [phone] Assessment No assessment recorded. Plan of Treatment Reminders Order Date Submit Date Provider Last Modified By Organization Details Last Modified Time Details Appointments None recorded. Lab None recorded. Referral None recorded. Procedures None recorded. Surgeries None recorded. Imaging None recorded. Medication Orders ketorolac 30 mg/mL (1 mL) injection solution 2022 023 pjansson Not available 3 15:05:55 Patient TargetsNo targets recorded. Patient InstructionsNo instructions recorded. Reason for Referral None Reported. Medical Equipment None Reported. Allergies Allergen ID Allergen Name Allergen Category Reaction Reaction Severity Criticality Documentation Date Start Date Code Code System Note Provider Name and Address Organization Details Recorded Time 6829 morphine medicatio n Not available Not available Not available 07/09/2024 7052 RxNorm Not Available [facility] - production 4 03:32:54 Medications Name Sig Start Date Stop Date Status Note LastModified by Organization Details LastModified Time delivery fee active Not Available Not Available Not Available ibuprofen 800 mg tablet active Not Available Not Available No t Available FreeStyle Lancets 28 gauge active Not Available Not Available Not Available oxycodone-acet aminophen 5 mg-325 mg tablet active Not Available Not Available Not Available oxycodone-acet aminophen 10 mg-325 mg tablet active Not Available Not Available Not Available gemfibrozil 600 mg tablet active Not Available Not Availabl e Not Available glipizide ER 2.5 mg tablet, extended release 24 hr active Not Available Not Availabl e Not Available cephalexin 500 mg capsule active Not Available Not Available N ot Available metformin 1,000 mg tablet active Not Available Not Available Not Available lisinopril 10 mg tablet active Not Available Not Available No t Available docusate sodium 100 mg capsule active Not Available Not Available Not Available omeprazole 20 mg capsule,delaye d release active Not Available Not Available No t Available morphine ER 15 mg tablet,extende d release active Not Available Not Available No t Available bisacodyl 5 mg tablet,delayed release active Not Available Not Available Not Available lisinopril 5 mg tablet active Not Available Not Available No t Available polyethylene glycol 3350 17 gram/dose oral powder active Not Available Not Available Not Available Ventolin HFA 90 mcg/actuation aerosol inhaler active Not Available Not Available Not Available rosuvastatin 40 mg tablet active Not Available Not Available Not Available Fiber Therapy (methylcellulo se) 500 mg tablet active Not Available Not Available Not Available Levemir FlexPen 100 unit/mL (3 mL) solution subcutaneous insulin pen active Not Available Not Available Not Available FreeStyle Lite Strips active Not Available Not Available Not Available Trulicity 1.5 mg/0.5 mL subcutaneous pen injector active Not Available Not Available Not Available Trulicity 3 mg/0.5 mL subcutaneous pen injector active Not Available Not Available Not Available Trulicity 4.5 mg/0.5 mL subcutaneous pen injector active Not Available Not Available Not Available Ozempic 2 mg/dose (8 mg/3 mL) subcutaneous pen injector active Not Available Not Available Not Available Mounjaro 12.5 mg/0.5 mL subcutaneous pen injector active Not Available Not Available Not Available Vitals Date Recorded Respiratory rate Body weight Body temperature Body height Oxygen saturation Oxygen saturation in Arterial blood by Pulse oximetry Heart rate Systolic blood pressure Diastolic blood pressure Provider Name and Address Organization Details Last Updated DateTime 3 16 /min 295872. 12 g 98.7 [degF] 175.26 cm 98 % 98 % 89 /min 151 mm[Hg] 90 mm[Hg] Not Available [facility] - production 3 16:56:45 Date Recorded Body temperature Oxygen saturation Oxygen saturation in Arterial blood by Pulse oximetry Body weight Respiratory rate Heart rate Body height Systolic blood pressure Diastolic blood pressure Provider Name and Address Organization Details Last Updated DateTime 3 97.3 [degF] 97 % 97 % 311346. 08 g 18 /min 92 /min 177.8 cm 115 mm[Hg] 78 mm[Hg] Not Available [facility] - production 3 15:04:18 Social History None recorded. Functional Status None recorded. Mental Status None recorded. Family History Nothing Reported. Medical History No medical history recorded. Past Encounters Encounter ID Performer Location Encounter Start Date Encounter Closed Date Diagnosis/Indication Diagnosis SNOMED-CT Code Diagnosis ICD10 Code [id number] Gary Bunch MD Main - [address] [address] 06/28/2023 16:56:38 06/28/2023 22:43:36 Low back pain 496947350 M54.50 [id number] Ezequiel Thrasher MD [facility] - [address] [phone] 07/28/2023 15:04:13 07/30/2023 15:38:55 Pain of toe of right foot 2974167391 48744 M79.674 Health Concerns Section Related Observation LastModified by Organization Detai ls LastModified Time None Recorded Concern Status LastModified by Organization Details LastModified Time None Recorded Advance Directives Directive None Recorded Payers Encounter Date Sequence Insurance Name Policy Number Policy Galvez Covered Member ID Galvez Member ID Guarantor Name 06/28/2023 1 [facility] - DOS ON OR AFTER 2022 - DUAL ELIGIBLE - RESIDENTIAL OPTIONS AND ONE CARE (MEDICARE REPLACEMENT/AD VANTAGE - HMO) [place] [id number] [place] 07/28/2023 1 [facility] - DOS ON OR AFTER 2022 - DUAL ELIGIBLE - RESIDENTIAL OPTIONS AND ONE CARE (MEDICARE REPLACEMENT/AD VANTAGE - HMO) [place] [id number] [place] Notes Date Note Type Note Provider Name and Address Organization Details Recorded Time 06/28/2023 text/html HPI: VNA reporting severe back pain for the last 2 days with no relief with OTC meds. Member has chronic back pain . VNA called PCP but has not transportation. Member has not had a CT or MRI . Member has not had any Falls or injuries that have increased pain. Member takes ibuprofen 800 mg with no change. Member is not on blood thinners,, no kidney dis but DM .................. .................. .................. .................. .................. .................. .................. ............... [facility] Nursing Assessment: Comments: Transcribed for VNA Gary Bunch MD [address] [facility],[address], [place], [address], [employer] 06/28/2023 17:00:11 07/28/2023 text/html HPI: VNA reporting severe pain to his right foot for the last 4 days >calling to get assess>Ibuprofen and Tylenol with no relief. .................. .................. .................. .................. .................. .................. .................. ............... [facility] Nursing Assessment: Comments: Spoke with member's VNA who is reporting member has wound to R foot in his great big toe. Treated for infection with 10 days of abx- today is the last day. Toe is no longer swollen or warm to the touch but member still c/o persistent pain. Member has hx of neuropathy - pain is severe. No fevers, no chills, but is having poor sleep bc of pain. Tylenol and ibuprofen not helping - Frannie Ricks RN .................. .................. .................. .................. .................. .................. .................. ............... 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 SC8 arrives on scene, pt is alert and oriented, airway is patent. Pt states he has been dealing with a wound on right big toe for over 2 months, is going to wound care once weekly, and has a VNA change dressing 3 times weekly. Pt just finished a course of antibiotics today, and will have next wound care appt on Monday. Pt states infection seems to be improving, but pain is constant and worsening since last debridement. Dressing is removed, wound is packed; picture uploaded to [employer]. BP:115/78, P:92, RR:18, SpO2:97% RA, T:97.3; Head: unremarkable; Lung sounds: clear bilaterally; Abdomen: soft, non-tender, no distention; Back: unremarkable; Extremities: right foot: no erythema or edema noted; extremity is euthermic, wound on right toe: packed; area around wound appears to be healing well; Skin: pink, warm, dry; [facility] consulted and orders Toradol 15mg IM; Toradol 15mg IM administered without incident; Red flags discussed. Pt has no further questions. [facility] Medication Orders: ketorolac 30 mg/mL (1 mL) injection solution: Administered .................. .................. .................. .................. .................. .................. .................. ............... Disposition: Fulfilled Ezequiel Thrasher MD [address] [facility],[address], [place], [address], [facility] - [employer] 07/28/2023 15:58:18
--- OUTSIDE RECORDS SUMMARY | 2024-08-20 19:14 | XMS_ITS | Continuity of Care Document ---
Author Organization Formerly [facility]. If a dditional information is needed, contact Health Information Management at [phone] Address [address] [place] [address] Phone Care Team Providers Care Bottom Scrubber Name Role Phone Unavailable Unavailable Unavailable Unavailable Unavailable Unavailable Unavailable Unavailable Unavailable Unavailable Unavailable Unavailable Problems Cat bite - wound Onset:19-Dec-2023 Sly Medley MD Cellulitis of right foot Onset:19-Dec-2023 Sly Medley MD Allergies and Adverse Reactions No Known Allergies(Allergy) Onset: 19-Dec-2023 Medications 0.5 ML Bordetella pertussis filamentous hemagglutinin vaccine, inactivated 0.01 MG/ML / Bordetella pertussis fimbriae 2/3 vaccine, inactivated 0.01 MG/ML / Bordetella pertussis pertactin vaccine, inactivated 0.006 MG/ML / Bordetella pertussis toxoid vaccine, inactivated 0.005 MG/ML / diphtheria toxoid vaccine, inactivated 4 UNT/ML / tetanus toxoid vaccine, inactivated 10 UNT/ML Injection [Adacel];0.5 MILLILITER X1ED Quantity:1 Sly Medley MD Start:30-Yje-0452Eaf:2023 Comments:[id number] amoxicillin 875 MG / clavulanate 125 MG Oral Tablet;875 MILLIGRAM X1ED Quantity:1 Sly Medley MD Start:1-Tnn-9483Kst:19-Dec-19 Comments:[id number] doxycycline monohydrate 100 MG Oral Capsule;100 MILLIGRAM X1ED Quantity:1 Sly Medley MD Start:0-Qwp-1803Gzn:19-Dec-19 Comments:[id number] acetaminophen 325 MG / HYDROcodone bitartrate 5 MG Oral Tablet;1 TABLET X1ED Quantity:1 Sly Medley MD Start:7-Fmq-2499Lhj:19-Dec-19 Comments:[id number] Administration Instructions:CAUTION FALLS RISK MEDTOTAL DAILY ACETAMINOPHEN DOSE SHOULD NOT DUTBBP4490 MGPER P T POLICY: PRN PAIN Procedures FOOT COMPLETE RIGHTResult:[facility] Name: JUAN JOSE SMITH [facility] Phys: Alexa Heart MD [address] [facility] : 1965 Age: 58 Sex: [place] [address] Acct: [id number] Loc: F.ED PHONE #: Exam Date: 12/19/2023 Status: REG ER FAX #: Radiology No: Unit No: [id number] EXAMS: [id number] FOOT COMPLETE RIGHT INDICATION: right ankle injury; RIGHT FOOT PAIN EXAMINATION/TECHNIQUE: X-RAY - RIGHT XR Foot Min 3 Views 5 VIEWS COMPARISON: No relevant prior comparison study available FINDINGS: SOFT TISSUES: Mild subcutaneous edema. No radiopaque foreign body. BONES/JOINTS: No acute fracture or subluxation.. Normal alignment. Preservation of the joint space.. No sclerotic or destructive changes observed. IMPRESSION: No acute fracture or dislocation. Mild subcutaneous edema. at 2203 Reported and signed by: JENNIFER VILLARREAL M.D. CC: Alexa Heart MD Dictated Date/Time: 12/19/2023 (2202)Technologist: KATELIN ESTES JR, RT(R)(CT)(MR Transcribed Date/Time: 12/19/2023 (2202)Hazardous Substances Engineer: ZIA Printed Date/Time: 12/19/2023 (2203) BATCH NO: N/A PAGE 1 Signed Report Date:19-Dec-2023 Status:Completed ANKLE 3 + V RTResult:[facility] Name: JUAN JOSE SMITH [facility] Phys: Alexa Heart MD [address] [facility] : 1965 Age: 58 Sex: [place] [address] Acct: [id number] Loc: JamisonED PHONE #: Exam Date: 12/19/2023 Status: REG ER FAX #: Radiology No: Unit No: [id number] EXAMS: [id number] ANKLE 3 + V RT INDICATION: right foot injury, pain; RIGHT FOOT PAIN EXAMINATION/TECHNIQUE: X-RAY - RIGHT XR Ankle Min 3 Views 5 VIEWS COMPARISON: No relevant prior comparison study available FINDINGS: SOFT TISSUES: Mild to moderate lower extremity subcutaneous edema. No radiopaque foreign body. BONES/JOINTS: No acute fracture or subluxation.. Normal alignment. 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 IMPRESSION: No acute fracture or dislocation. Diffuse lower extremity soft tissue edema. at 2144 Reported and signed by: JENNIFER VILLARREAL M.D. CC: Alexa Heart MD Dictated Date/Time: 12/19/2023 (2143)Technologist: KATELIN ESTES JR, RT(R)(CT)(MR Transcribed Date/Time: 12/19/2023 (2143)Hazardous Substances Engineer: ZIA Printed Date/Time: 12/19/2023 (2144) BATCH NO: N/A PAGE 1 Signed Report Date:19-Dec-2023 Status:Completed Immunizations Tdap Lot #:[id number], On:20-Dec-2023 Comments:Provider's Administ ration Notes:New immunization record Social History Smoking Status Smokes tobacco daily Recorded: 19-Dec-2023 Vital Signs 20-Dec-2023 00:46 Pulse83 Comments:83 Respiratory Rate18 Comments:18 O2 SAT98% Comments:98 BP Nhibkbpi478pr[Hg] Comments:17 2 BP Birepjlaf77zq[Hg] Comments:81 19-Dec-2023 20:58 TEMP QEJXWKAUTD19z Comments:98.0 Pulse90 Comments:90 Respiratory Rate18 Comments:18 O2 SAT97% Comments:97 BP Sonvklfk901aw[Hg] Comments:18 7 BP Wvzwitywo49dy[Hg] Comments:88 Height5.3867037[ft_us] Comments: 5 Jsqzzc846zc Comments:109.000 19-Dec-2023 20:58 BMI34.4kg/m2 Comments:34.4 Encounters Emergency Encounter Reason:RIGHT FOOT PAIN Encounter Diagnosis:Cellulitis of right lower limb,Nicotine dependence, unspecified, uncomplicated,Effusion, right ankle,Bitten by cat, initial encounter,Encounter for immunization,Puncture wound without foreign body of left hand, initial encounter 19-Dec-2023 20:63Cu08-Rss-5153 00:46 [facility] Discharge Disposition:Discharged to home or self care (routine discharge) ? ? ? Sly Medley MD-19-Dec-2023 [facility] ([facility])EMERGENCY PROVIDER REPORTREPORT#:[id number] REPORT STATUS: SignedDATE:12/19/23 TIME: 2348PATIENT: JUAN JOSE SMITH UNIT #: [id number]#: [id number] ROOM/BED:AGE: 58 SEX: M PCP PHYS: No Primary or Family PhysicianSERVICE AUTHOR: Alexa Haert MDREP SRV DATE: 12/19/23 REP SRV TM: 2349ALL edits or amendments must be made on the electronic/computer chartHPI-Recheck W/B/SGeneralConfirmed Patient YesPatient Type New patientInitial Greet Date/Time 12/19/232055PCPout of townTransferred From private vehiclePresentationChief Complaint right foot and ankle painPrior Tx of Wound/Injury [facility]. Then, about 3 weeks ago, he twisted it and felta pop. He was told it was not broken but still felt pain. He has just arrivedto visit his cousin in [place] and they are about to embark on a cruise. Hewanted his leg looked at before the cruise. [place] plans to go [place] when the [place] over.Hx Obtained From Patient, Family (cousin)Onset Occurred 3 weeks ago for the injury. The diabetic foot problems have beengoing on for about 7 months.Symptom Duration Since onset, ConstantProgression since Onset UnchangedLocationright foot and ankleQuality PainfulRadiation Radiation present (to the mid tamez)Pain/Sev: Onset MildPain/Sev: Current MildAssociated withReports: Redness, Swelling. Denies: Fever, Weakness.Exacerbated by walkingRelieved by NothingReview of SystemsROS StatementsAll systems rev neg except as marked.Focused Review of SystemsConstitutionalDenies: Fever, Malaise.Free Text ROS NotesFree Text ROS NotesAfter I noticed the redness on the left hand, patient admitted that he got a catbite 2 days ago also.Past Medical History - AdultStated Complaint RIGHT FOOT PAINAllergiesCoded Allergies:No Known Allergies (12/19/23)Calculated Suicide Risk (nurs) No riskReview of Nursing Notes Rev avail, and agreeAdditional Medical HistoryDMperipheral vascular diseasediabetic neuropathydiabetic foot ulcersAdditional Surgical Historywound care debridement,stents in legsSmoking status for patients 13 years old or older: Current every day smokerPhysical ExamVital SignsVital SignsFirst Documented: Result Date Time Pulse Ox 97 12/18 2053 B/P 187/88 12/18 2053 B/P Mean 121 12/18 2053 O2 Delivery Room air 12/18 2053 Temp 36.7 12/18 2053 Pulse 90 12/18 2053 Resp 18 12/18 2053Last Documented: Result Date Time Pulse Ox 97 12/18 2053 B/P 187/88 12/18 2053 B/P Mean 121 12/18 2053 O2 Delivery Room air 12/18 2053 Temp 36.7 12/18 2053 Pulse 90 12/18 2053 Resp 18 12/184Review of Vital Signs ReviewedFocused PEGeneral/Const General/Const Awake, Alert, No acute distress, Well appearing, Well developed, Well hydrated, Well nourished, Cooperative, Not toxic appearing, appearschronically ill, unkemptSkin Skin darkish crusting and lichenplanus on plantar feet, right > left.ulceration over 1st MTP joint appears to be healing and covered with eschar.The dorsum of the 1st toe and the right foot with erythema and heat. +swellingto the ankle. Similar on left, but, much less. The left hand had 2 puncturewounds and bright erythematous surrounding patch also with heat of about 8cm.Interpretation DiagnosticsLab Results InterpretationResultsRecent Impressions:RADIOLOGY - FOOT COMPLETE RIGHT 12/18 2099 Report Impression - Status: SIGNED Entered: 12/19/20232203IMPRESSION:No acute fracture or dislocation. Mild subcutaneous edema.Impression By: JENNIFER GILLESPIE M.D.RADIOLOGY - ANKLE 3 + V RT 12/18 2099 Report Impression - Status: SIGNED Entered: 12/19/2023 2145IMPRESSION:No acute fracture or dislocation. Diffuse lower extremity softtissue edema.Impression By: JENNIFER GILLESPIE M.D.Re-Evaluation MDMED CourseMedication(s) OrderedMedication(s) Ordered:Anti-Infective Agents Sig/Yannick Start time Last Medication Dose Route Stop Time Status Admin Amoxicillin/ 875 MG X1ED STA 12/18 2350 DC Clavulanate Potassium PO 12/18 2351 Doxycycline 100 MG X1ED STA 12/18 2350 DC Monohydrate PO 12/18 2351Central Nervous System Agents Sig/Yannick Start time Last Medication Dose Route Stop Time Status Admin Hydrocodone Bitart/ 1 TAB X1ED STA 12/18 2349 DC Acetaminophen PO 12/18 2350Serums, Toxoids, And Vaccines Sig/Yannick Start time Last Medication Dose Route Stop Time Status Admin Diphtheria/Pertussis/ 0.5 ML X1ED STA 12/19 0010 DC Tetanus Vacc IM 12/19 0011Differential DiagnosisDifferential Diagnosis Abrasion, Cellulitis, OsteomyelitisFree Text MDM NotesFree Text MDM NotesBecause this patient is diabetic and does not care for himself well according tothe cousin, this patient is at high risk for morbidity and mortality. He alsohas a cat bite that he was not even going to tell me about, I found that on myown. Therefore, that change the antibiotic choices that he needed. He is notgoing to be following up in our vicinity and plans to return home. Therefore,just so he can get on his cruise that he is so eager for, I will prescribeantibiotics and hope he will follow-up as soon as he gets home.Patient Discharge DepartureVital Signs/ConditionVital SignsFirst Documented: Result Date Time Pulse Ox 97 12/18 2053 B/P 187/88 12/18 2053 B/P Mean 121 12/18 2053 O2 Delivery Room air 12/18 2053 Temp 36.7 12/18 2053 Pulse 90 12/18 2053 Resp 18 12/18 2053Last Documented: Result Date Time Pulse Ox 97 12/18 2053 B/P 187/88 12/18 2053 B/P Mean 121 12/18 2053 O2 Delivery Room air 12/18 2053 Temp 36.7 12/18 2053 Pulse 90 12/18 2053 Resp 18 12/18ll vital signs available at the time of this entry have been reviewed.Condition Stable, ImprovedClinical ImpressionClinical ImpressionPrimary Impression: Cat bite of left handSecondary Impressions: Cellulitis of right footDisposition DecisionDischarge )( Discharged to Home Yes )( Time 2352 )( Date 12/19/23Discharge/Care PlanCounseled Regarding Diagnosis, Lab results, Prescriptions, Need for follow-up,When to return to ED(Auto) PrescriptionsCurrent Visit ScriptsDoxycycline Hyclate (Vibramycin) 100 MG PO BID 10 Days #20 CAPAmoxicillin/K Clav (Augmentin) 875 MG PO Q12HR Amoxicillin/K Clav (Augmentin) 875 MG PO Q12HR #15 TABIBUPROFEN (MOTRIN) 600 MG PO Q6H PRN PRN PAIN SCALE 1-3 IBUPROFEN (MOTRIN) 600 MG PO Q6H PRN PRN PAIN SCALE 1-3 #15 TABPatient Instructions ED Cat Bite, ED CellulitisReferralsProvider Referral: Jagjit Merino DPM Follow-Up: in 1-2 days Address: [address] [place] [address] at [address]RPT#:[id number] OF REPORT Plan of Treatment Future Tests Future scheduled test information is unavailable Pending Tests Pending diagnostic test information is unavailable Future Visits Future appointment information is unavailable Referrals to Other Providers Reason for Referral Referral Start Date Provider Provider Contact Information Provider Address Jagjit Merino DPM Work Phone: [phone] [place], [place] [phone] Future Procedures Future procedure information is unavailable Future Medications Future medication information is unavailable Patient Instructions ED Cat Bite ED Cellulitis Assessments Diagnosis Onset Date Resolution Status Cat bite of left hand Active Cellulitis of right foot Act deniz
== END 2024-08-14 14:01 | disposition home or self-care (01) ==
PROVIDERS: PCP Nurse Practitioner Family; Visit Provider Student in an Organized Health Care Education/Training Program
DX: E11.65 Type 2 diabetes mellitus with hyperglycemia (principal); E11.51 Type 2 diabetes mellitus with diabetic peripheral angiopathy without gangrene; Z79.4 Long term (current) use of insulin; E78.5 Hyperlipidemia, unspecified
CPT/HCPCS: 99204; G2211

== ENCOUNTER → 2024-08-14 12:44 | Outpatient (BNVA) | payer OTHER, SELFPAY | PROVIDERS: PCP Nurse Practitioner Family; Visit Provider Student in an Organized Health Care Education/Training Program | DX: E11.65 Type 2 diabetes mellitus with hyperglycemia (principal); E11.51 Type 2 diabetes mellitus with diabetic peripheral angiopathy without gangrene; E66.9 Obesity, unspecified; Z68.35 Body mass index [BMI] 35.0-35.9, adult; Z79.4 Long term (current) use of insulin; Z79.84 Long term (current) use of oral hypoglycemic drugs | CPT/HCPCS: 82947; 99202 ==

== ENCOUNTER 2024-09-10 11:12 | Outpatient (REF) | payer OTHER, SELFPAY ==
--- OUTSIDE RECORDS SUMMARY | 2024-09-10 11:14 | XMS_ITS | Continuity of Care Document ---
Author Organization [facility]. If a dditional information is needed, contact Health Information Management at [phone] Address [address] [place] [address] Phone Care Team Providers Care Flight/Transport Nurse Name Role Phone Unavailable Unavailable Unavailable Unavailable [...] [Adacel];0.5 MILLILITER X1ED Quantity:1 Sly Medley MD Start:44-Cog-8600Pkw:2023 Comments:[id number] amoxicillin 875 MG / clavulanate 125 MG Oral Tablet;875 MILLIGRAM X1ED Quantity:1 Sly Medley MD Start:9-Pfb-3055Xqr:19-Dec-19 Comments:[id number] doxycycline monohydrate 100 MG Oral Capsule;100 MILLIGRAM X1ED Quantity:1 Sly Medley MD Start:4-Ejp-5998Tpt:19-Dec-19 Comments:[id number] acetaminophen 325 MG / HYDROcodone bitartrate 5 MG Oral Tablet;1 TABLET X1ED Quantity:1 Sly Medley MD Start:7-Lol-6369Psn:19-Dec-19 Comments:[id number] Administration Instructions:CAUTION FALLS RISK MEDTOTAL DAILY ACETAMINOPHEN DOSE SHOULD NOT [id number] MGPER P T POLICY: PRN PAIN Procedures FOOT COMPLETE RIGHTResult:[facility] Name: JUAN JOSE SMITH [facility] Phys: Alexa Heart MD [address] [facility] : 1965 Age: 58 Sex: [place] [address] Acct: [id number] Loc: F.ED PHONE #: Exam Date: 12/19/2023 Status: REG ER FAX #: Radiology No: Unit No: [id number] EXAMS: [id number] FOOT COMPLETE RIGHT INDICATION: right ankle injury; [...] KATELIN ESTES JR, RT(R)(CT)(MR Transcribed Date/Time: 12/19/2023 (2202)Spot Facer: ZIA Printed Date/Time: 12/19/2023 (2203) BATCH NO: N/A PAGE 1 Signed Report Date:19-Dec-2023 Status:Completed ANKLE 3 + V RTResult:[facility] Name: JUAN JOSE SMITH [facility] Phys: Alexa Heart MD [address] [facility] : 1965 Age: 58 Sex: [place] [address] Acct: [id number] Loc: JamisonED PHONE #: Exam Date: 12/19/2023 Status: REG ER FAX #: Radiology No: Unit No: [id number] EXAMS: [id number] ANKLE 3 + V RT INDICATION: right [...] KATELIN ESTES JR, RT(R)(CT)(MR Transcribed Date/Time: 12/19/2023 (2143)Spot Facer: ZIA Printed Date/Time: 12/19/2023 (2144) BATCH NO: N/A PAGE 1 Signed Report Date:19-Dec-2023 Status:Completed Immunizations Tdap Lot #:[id number], On:20-Dec-2023 Comments:Provider's Administ ration Notes:New immunization record Social History Smoking Status Smokes tobacco daily Recorded: 19-Dec-2023 Vital Signs 20-Dec-2023 00:46 Pulse83 Comments:83 Respiratory Rate18 Comments:18 O2 SAT98% Comments:98 BP Pdnlzphx251qb[Hg] Comments:17 2 BP Pciojdral71es[Hg] Comments:81 19-Dec-2023 20:58 TEMP SBDDMVQTBG80j Comments:98.0 Pulse90 Comments:90 Respiratory Rate18 Comments:18 O2 SAT97% Comments:97 BP Usujqeoa524xi[Hg] Comments:18 7 BP Tgbcjibic08ia[Hg] Comments:88 Height5.4573948[ft_us] Comments: 5 Xvbsbc491qq Comments:109.000 19-Dec-2023 20:58 BMI34.4kg/m2 Comments:34.4 Encounters Emergency Encounter Reason:RIGHT FOOT PAIN Encounter Diagnosis:Cellulitis of right lower limb,Nicotine dependence, unspecified, uncomplicated,Effusion, right ankle,Bitten by cat, initial encounter,Encounter for immunization,Puncture wound without foreign body of left hand, initial encounter 19-Dec-2023 20:64Bh44-Psu-5217 00:46 [facility] Discharge Disposition:Discharged to home or self care (routine discharge) ? ? ? Sly Medley MD-19-Dec-2023 [facility] ([facility])EMERGENCY PROVIDER REPORTREPORT#:[id number] REPORT STATUS: SignedDATE:12/19/23 TIME: 2348PATIENT: JUAN JOSE SMITH UNIT #: [id number]#: [id number] ROOM/BED:AGE: 58 SEX: M PCP PHYS: No Primary or Family PhysicianSERVICE AUTHOR: Alexa Heart MDREP SRV DATE: 12/19/23 REP SRV TM: 2349ALL edits or amendments must be made on the electronic/computer chartHPI-Recheck W/B/SGeneralConfirmed Patient YesPatient Type New patientInitial Greet Date/Time 12/19/232055PCPout of townTransferred From private vehiclePresentationChief Complaint right foot and ankle painPrior Tx of Wound/Injury Right [facility]. Then, about 3 weeks ago, he twisted it and felta pop. He was told it was not broken but still felt pain. [place] and they are about to embark on [...] Merino DPM Follow-Up: in 1-2 days Address: [address] [place] [address] at 0634RPT#:[id number] OF REPORT Plan of Treatment Future Tests Future scheduled test information is unavailable Pending Tests Pending diagnostic test information is unavailable Future Visits Future appointment information is unavailable Referrals to Other Providers Reason for Referral Referral Start Date Provider Provider Contact Information Provider Address Jagjit Merino DPM Work Phone: [phone] [place], [place] [phone] Future Procedures Future procedure information is unavailable Future Medications Future medication information is unavailable Patient Instructions ED Cat Bite ED Cellulitis Assessments Diagnosis Onset Date Resolution Status Cat bite of left hand Active Cellulitis of right foot Act deniz
[2024-09-10 13:35] LABS: MANUAL DIFF FLAG NO
[2024-09-10 13:41] LABS: Basophils Absolute Auto 0.1 X10*3/uL (0.0-0.2); Basophils Percent Auto 0.6 % (0-2); Eosinophils Absolute Auto 0.1 X10*3/uL (0.0-0.4); Eosinophils Percent Auto 1.3 % (0-4); Hematocrit 46.2 % (42.0-52.0); Hemoglobin 15.5 g/dl (14.0-18.0); Imm Gran Abs Auto 0.04 X10*3/uL (0.00-0.03); Imm Gran Pct Auto 0.5 % (0.0-0.4); Lymphocytes Percent Auto 23.1 % (20-40); Mean Corpuscular HGB Conc 33.5 g/dl (31.0-36.0); Mean Corpuscular Hemoglobin 32.5 pg (27.0-33.0); Mean Corpuscular Volume 96.9 fL (80.0-98.0); Mean Platelet Volume 11.2 fL (9.4-12.4); Monocytes Absolute Auto 0.7 X10*3/uL (0.1-1.2); Monocytes Percent Auto 7.8 % (2-11); Neutrophils Absolute Auto 5.8 x10*3/uL (2.0-8.3); Neutrophils Percent Auto 66.7 % (45-73); Platelet Count 211 X10*3/uL (160-400); Red Blood Count 4.77 X10*6/uL (4.60-5.80); Red Cell Distribution Width 12.9 % (11.0-16.0); White Blood Count 8.7 X10*3/uL (4.8-10.8)
[2024-09-10 13:58] LABS: Alanine Aminotransferase 17 U/L (0-40); Albumin Level 3.9 g/dL (3.5-5.0); Alkaline Phosphatase 81 U/L (39-117); Anion Gap 13 (12-20); Aspartate Amino Transferase 19 U/L (5-37); Bilirubin Total 0.4 mg/dL (0.0-1.0); Blood Urea Nitrogen 15 mg/dL (9-16); Calcium 9.2 mg/dL (8.4-10.2); Carbon Dioxide 27 mmol/L (22-29); Chloride 101 mmol/L (96-108); Cholesterol 295 mg/dL (<200); Estimated Glomerular Filt Rate > 60; Glucose Fasting 297 mg/dL (60-99); HDL Cholesterol 40 mg/dL (>40); LDL Cholesterol Calculated 210 mg/dL (<100); Potassium 4.2 mmol/L (3.3-5.1); Sodium 137 mmol/L (135-145); Total Protein 7.2 g/dL (6.5-8.0); Triglycerides 226 mg/dL (<150)
[2024-09-10 14:08] LABS: TSH reflex Free T4 0.79 uIU/mL (0.32-4.0)
== END 2024-09-10 11:13 | disposition home or self-care (01) ==
LOC: HO.HMGCLDS 11:12
PROVIDERS: PCP Nurse Practitioner Family; Visit Provider Nurse Practitioner Family
DX: E11.9 Type 2 diabetes mellitus without complications (principal)
CPT/HCPCS: 36415; 80053; 80061; 84443; 85025

== ENCOUNTER 2024-10-10 11:16 | Outpatient (AMB) | payer OTHER, SELFPAY ==
[2024-10-10 11:18] VITALS: BP 112/60; PULSE 86; BMI 36.4
--- NOTE | 2024-10-10 11:18 | A.OFFVIS_ITS ---
Vital Signs 10/10/24 11:18 Height 5 ft 10 in Weight 253 lb 15.56 oz BMI 36.4 BP 112/60 Blood Pressure Location Rt brachial Position Sitting Pulse 86 Pulse Source Pulse Oximeter Intake Visit Reasons: T2DM Intake Note: Patient present today for Type 2 Diabetes Mellitus. Last Diabetic eye exam: 11/2023 Last Podiatry Visit: Doesn't have one Random Glucose: 144 mg/dl HgA1C: 9.9% 07/29/24 Lead Shipper Required: No Accompanied by: Self / Same As Patient Allergies adhesive tape Allergy (Intermediate, Verified 10/10/24 11:23) Rash codeine [Tylenol-Codeine #3] Allergy (Intermediate, Verified 10/10/24 11:23) Rash hydrocodone [Vicodin] Allergy (Intermediate, Verified 10/10/24 11:23) confusion/does not relieve pain morphine Allergy (Intermediate, Verified 10/10/24 11:23) rash diphenhydramine [From Benadryl] Adverse Reaction (Intermediate, Verified 10/10/24 11:23) Itching Medication List - Last Reconciled 10/10/24 by Meera Carbajal MD albuterol sulfate 90 mcg/actuation (Ventolin HFA) 2 puffs PO Q4-6H PRN blood sugar diagnostic (FreeStyle Lite Strips) 1 strip miscellaneous TID blood-glucose meter (FreeStyle Lite Meter kit) check sugar twice a day blood-glucose meter,continuous (FreeStyle Jori 3 [place]) As directed blood-glucose meter,continuous (FreeStyle Jori 3 [place]) As directed blood-glucose sensor (FreeStyle Jori 3 Sensor device) As directed blood-glucose sensor (FreeStyle Jori 3 Plus Sensor device) As directed every 10 days Uncontrolled type 2 diabetes mellitus with hyperglycemia E11.65 Diabetes mellitus type: type 2 Glycemic state: with hyperglycemia Type 2 diabetes mellitus with diabetic peripheral angiopathy without gangrene, with long-term current use of insulin E11.51; Z79.4 [exterior ramp As directed] ezetimibe 10 mg PO DAILY 90 days fluticasone propionate 50 mcg/actuation (Flonase Allergy Relief) 1 spray intranasal DAILY 30 days gemfibrozil 600 mg PO DAILY 90 days ibuprofen 800 mg PO TID PRN insulin glargine (Lantus Solostar U-100 Insulin) 90 units (0.9 mL) subcut ONCE insulin lispro (Humalog KwikPen (U-100) Insulin) 6 units (0.06 mL) subcut DAILY lancets (FreeStyle Lancets) check sugar three times a day lisinopril 20 mg PO DAILY 90 days metformin 1,000 mg PO BID 90 days [mobility scooter As directed] omeprazole 20 mg PO DAILY 90 days pen needle, diabetic (BD Ultra-Fine Short Pen Needle) twice a day pen needle, diabetic (BD Ultra-Fine Short Pen Needle) to inject insulin twice daily rosuvastatin (Crestor) 40 mg PO DAILY 90 days semaglutide (Ozempic) 1 mg (0.75 mL) subcut QWEEK HPI Comments Details: 58-year-old male with past medical history significant for hypertension, hyperlipidemia, peripheral artery disease, GERD, coming in today for follow up of type 2 diabetes mellitus History of diabetes Diagnosed in his early 40s Been on insulin for at least the last 10 years Prior therapy: He was on levemir 85 units twice a day however recently sometime around fall 2023 got switched to Lantus [facility] he is now taking 90 units once daily since Jul 2024 Glipizide discontinued in August 2024 Trulicity 4.5 mg weekly discontinued in August 2024 due to ineffectiveness Current regimen: Ozempic 1 mg weekly started beginning of August 2024 Metformin 1000 b.i.d. Lantus 90 units once daily bedtime , Humalog 6 units before supper started August 2024 Random Glucose: 144 mg/dl had a soda this morning HgA1c: 9.9% 07/29/24 Denies any symptoms of hyperglycemia including polyphagia, polyuria, polydipsia. Denies any hypoglycemic symptoms. Nothing less than 70. He says he usually doesnt go below 160. SMBG's Check with meter three times a day , has not checked his blood sugars in the past 2-3 weeks as he gave his test strips to a neighbor and he has not had a refill yet. We also prescribed him freestyle Jori 3 sensor which apparently was 1st approved but later denied, he has not been able to call his insurance Diet: Skips breakfast most days Between 12 and 1: gets moms meals , hamburger or egg and cheese omeltte with apple sauce with 2 sticks of english toast Sometimes snacks in between: ice cream, eddie cookies , Around 7 pm Has a soda 12 oz can coke twice a day. Refuses to see senior revenue accountant because he food is my only comfort, I do not like people to tell me how to eat On disability since 10 to 12 years. Sleeps a lot not active. Does do the home chores himself. Very little walking. Bad knees and back cause him to have pain. Vaccines: Complications Eye exam: Last Diabetic Eye exam: almost 1 year, has yearly appointments, denies history of retinopathy Last Podiatry Visit: Does not see a Account Classification Clerk Neuropathy: Has severe neuropathy with a history of peripheral artery disease, status post angiography in 2022 Kidney disease: EGFR greater than 60, creatinine 0.99 in May 2024, urine microalbumin/creatinine ratio elevated at 182.7 in March 2024 Macrovascular complications: Peripheral artery disease, has had an angioplasty in 2022 Statin: On rosuvastatin 40 mg daily and gemfibrozil 600 mg b.i.d., LDL 210 mg/dL from August 2024, subsequently started on Zetia 10 mg daily by primary care MIKEY/ARB: On lisinopril 20 mg daily, Exercise: None Physical exam General: sitting comfortably in no acute distress HEENT: normocephalic/atraumatic, Neck: supple Cardiac: normal heart sounds Pulm: normal breath sounds B/L, no added breath sounds Abd: not distended, no tenderness Extremities: Bilateral pitting edema Foot exam: Examined August 2024: Very poor foot care, has calluses, skin sloughing, no sensation to monofilament, no sensation to vibration, intact pulses in feet are warm Laboratory Tests 10/08/21 05/27/22 03/08/23 11:28 11:05 12:24 Plt Count Creatinine Estimated GFR Random Glucose Fasting Glucose Estimat Average Glucose Hgb A1c (Clinic) 7.9 H AST ALT Triglycerides Cholesterol LDL Cholesterol, Calc HDL Cholesterol TSH Urine Creatinine 152.98 218.45 Urine Microalbumin 53.0 35.0 Microalb/Creat Ratio 34.6 16.0 06/12/23 09/20/23 03/13/24 13:32 10:03 09:46 Plt Count 184 Creatinine Estimated GFR Random Glucose Fasting Glucose 312 H Estimat Average Glucose 278 Hgb A1c (Clinic) 9.1 H 8.1 H AST 11 ALT 12 Triglycerides 199 H Cholesterol 278 H LDL Cholesterol, Calc 190 H HDL Cholesterol 49 TSH 1.64 Urine Creatinine Urine Microalbumin Microalb/Creat Ratio 03/13/24 05/14/24 07/29/24 09:55 14:53 15:36 Plt Count Creatinine 0.99 Estimated GFR > 60 Random Glucose 424 H* Fasting Glucose Estimat Average Glucose Hgb A1c (Clinic) 9.9 H AST ALT Triglycerides Cholesterol LDL Cholesterol, Calc HDL Cholesterol TSH Urine Creatinine 107.25 Urine Microalbumin 196.0 Microalb/Creat Ratio 182.7 H Laboratory Tests 09/10/24 10/10/24 11:41 11:25 Sodium 137 Potassium 4.2 Creatinine 0.78 Estimated GFR > 60 Glucose (Clinic) 144 H Fasting Glucose 297 H Calcium 9.2 D Triglycerides 226 H Cholesterol 295 H LDL Cholesterol, Calc 210 H HDL Cholesterol 40 L TSH 0.79 [facility] Medical History (Updated 08/14/24 @ 13:09 by Meera Carbajal MD) Obesity (BMI 30-39.9) Nicotine dependence, cigarettes, uncomplicated Cat bite Diabetes Dysplastic colon polyp Parasomnia CHF (congestive heart failure) Sleep apnea High cholesterol Hypertension Acid reflux Surgical History History of esophagogastroduodenoscopy (EGD) H/O colonoscopy Hx of rotator cuff surgery H/O resection of small bowel History of colon resection Family History Mother No problems noted. Father No problems noted. Social History Housing: Apartment Housing Other:: mobile home Are you a primary managed care specialist to a significant other at home: No Do you presently have visiting nurse or other home services: No Alcohol intake: current Alcohol intake frequency: does not drink Patient Tobacco Use Status: Current everyday Tobacco user Tobacco use type: Cigarette and Cigar Cigarette Packs Per Day: 0.5 Cigarettes Per Day: 5 Years Smoked: 35+ e-Cigarette/Vaping Use: Never Used Second Hand Smoke Exposure: No Substance Use Type: Marijuana Current occupational status: unemployed Current occupation: left handed Cognitive needs: No Hearing needs: No Vision needs: No Physical Exam Vital Signs: Last Vital Signs Pulse 86 10/10/24 11:18 BP 112/60 10/10/24 11:18 BMI result Body Mass Index 36.4 Results Reviewed Results Reviewed: Laboratory Last Values Glucose (Clinic) 144 mg/dL (60-115) H 10/10/24 11:25 Assessment & Plan Assessment & Plan (1) Uncontrolled diabetes mellitus: Code(s): E11.65 - Type 2 diabetes mellitus with hyperglycemia Category: Medical Qualifiers: Diabetes mellitus type: type 2 Glycemic state: with hyperglycemia Qualified Code(s): E11.65 - Type 2 diabetes mellitus with hyperglycemia Plan: See below (2) Diabetes mellitus: Code(s): E11.9 - Type 2 diabetes mellitus without complications Category: Medical Qualifiers: Diabetes mellitus type: type 2 Diabetes mellitus remote computer terminal operator insulin use: with remote computer terminal operator use Diabetes mellitus complication status: with circulatory complication Diabetes mellitus complication detail: with peripheral angiopathy without gangrene Qualified Code(s): E11.51 - Type 2 diabetes mellitus with diabetic peripheral angiopathy without gangrene; Z79.4 - parts counterman (current) use of insulin Plan: 58-year-old male with past medical history significant for peripheral artery disease, hypertension, hyperlipidemia, GERD coming in today for follow up of type 2 diabetes mellitus with hyperglycemia with long-term insulin use with complications of peripheral vascular disease. He did not bring in any glucometer later and said he has not been checking any blood sugars for the past 3 weeks or so because he gave his test strips to a neighbor., we also prescribed him freestyle Jori 3 but his insurance 1st approved it and then denied it, he has not called his insurance yet to figure out what is happening, since he is on CCA we have told him we are not authorized to call on his behalf. Stressed importance of bringing Glucometer to these appointments. A1c elevated at 9.9% in July 2024. Given lack of data today I am not making any changes to his insulin, but I will increase his Ozempic to 2 mg weekly. Eventually we will plan to add as an SGLT2 inhibitor but we will hold off now given the level of hyperglycemia. He is also not very particular about pre bolusing himself and sometimes takes the Humalog after his meal. Reiterated importance to him about taking it at the right time. Sometimes he misses doses of Lantus. Plan: -continue insulin Lantus 90 units daily -continue Humalog KwikPen 6 units daily before supper -increase Ozempic to 2 mg weekly, -continue metformin 1000 mg b.i.d. -prescribed tena Hsieh, last visit, he is supposed to call his insurance to figure out what is the delay in approval -discussed complications of uncontrolled hyperglycemia including stroke, GA, amputations, gangrene, microvascular complications -discussed hypoglycemic treatment teaching -podiatry referral placed last visit -counseled about adverse effects of smoking and advised to quit smoking -extensively advised to give up soda, he does not want to see a senior revenue accountant (3) Dyslipidemia: Code(s): E78.5 - Hyperlipidemia, unspecified Category: Medical Plan: LDL above goal at 210 mg/dL from August 2024. Currently on rosuvastatin 40 mg daily and gemefibrozil 600 mg b.i.d.. Primary care started with Zetia 10 mg daily, agree with this addition (4) Hypertension: Code(s): I10 - Essential (primary) hypertension Category: Medical Qualifiers: Hypertension type: primary hypertension Qualified Code(s): I10 - Ess ential (primary) hypertension Plan: Blood pressure at goal, currently on lisinopril 20 mg daily. Continue same.. (5) Obesity (BMI 30-39.9): Code(s): E66.9 - Obesity, unspecified Category: Medical Plan: BMI 36.4 kg per m2. Current weight 253 lb up from 249 lb. He has gained 20 lb over the last 3-4 months despite being on Trulicity. And now switch to Ozempic 1 mg weekly which she has been on for the past 2 months. Increase Ozempic to 2 mg weekly Plan I spent 30 minutes in reviewing the record, seeing the patient and documenting in the medical record. Medications: New semaglutide (Ozempic) 2 mg (0.75 mL) subcut QWEEK 9 mL 5RF Discontinued semaglutide (Ozempic) Discontinued Reason: Doctor's Order 1 mg (0.75 mL) subcut QWEEK 3 mL 7RF Patient Instructions: Increase Ozempic to 2 mg weekly Continue same dose of lantus 90 units daily , please do it at the same time either at bedtime or in the morning Continue humalog kwikpen 6 units before supper Come back in 2 weeks with blood sugar readings Call your insurance to find out why your freestyle jori 3 sensors are not being approved as you are on both basal and mealtime insulin Coding Level of Care Code Est Pt Level 4 (37075) Complex EM visit Add On G2211 Diagnoses Uncontrolled type 2 diabetes mellitus with hyperglycemia E11.65 Diabetes mellitus type: type 2 Glycemic state: with hyperglycemia Type 2 diabetes mellitus with diabetic peripheral angiopathy without gangrene, with long-term current use of insulin E11.51; Z79.4 Diabetes mellitus type: type 2 Diabetes mellitus residential insulin use: with remote computer terminal operator use Diabetes mellitus complication status: with circulatory complication Diabetes mellitus complication detail: with peripheral angiopathy without gangrene Dyslipidemia E78.5 Primary hypertension I10 Hypertension type: primary hypertension Obesity (BMI 30-39.9) E66.9 Time Spent (min) 30
[2024-10-10 11:29] LABS: Glucose, Whole Blood 144 mg/dL (60-115)
--- OUTSIDE RECORDS SUMMARY | 2024-10-10 15:08 | XMS_ITS | Data Portability ---
Author Organization [facility], [place] [facility] [employer] Address [address] [place] [phone] Care Team Providers Care Unit Coordinator Name Role Phone [facility] Referring Provider Assessment No assessment recorded. Plan of Treatment [...] Details Last Updated DateTime 3 16 /min 753495. 12 g 98.7 [degF] 175.26 cm 98 % 98 % 89 /min 151 mm[Hg] 90 mm[Hg] Not Available [employer] - production 3 16:56:45 Date Recorded Body temperature Oxygen saturation Oxygen saturation in Arterial blood by Pulse oximetry Body weight Respiratory rate Heart rate Body height Systolic blood pressure Diastolic blood pressure Provider Name and Address Organization Details Last Updated DateTime 3 97.3 [degF] 97 % 97 % 563828. 08 g 18 /min 92 /min 177.8 cm 115 mm[Hg] 78 mm[Hg] Not Available [employer] - production 3 15:04:18 Social History None recorded. Functional Status None recorded. Mental Status None recorded. Family History Nothing Reported. Medical History No medical history recorded. Past Encounters Encounter ID Performer Location Encounter Start Date Encounter Closed Date Diagnosis/Indication Diagnosis SNOMED-CT Code Diagnosis ICD10 Code Diagnosis Note [id number] Gary Bunch MD [facility] [address] [place] [phone] 06/28/2023 16:56:38 06/28/2023 22:43:36 Low back pain 404834474 M54.50 57yo man presents with 5 days of back pain which occurs when he does a twisting motion. He a lumbar spine surgery years ago and has overall done well. He's been taking ibuprofen without relief. No neurologic al dysfunctio n. No history of CKD or stomach ulcers.Ass essment: MSK low back strainPlan :- Management is conservati ve with rest and non-excess deniz NSAIDs.- Prefer to avoid Toradol given current use of ibuprofen at 800mg q4-6h [id number] Ezequiel Thrasher MD [facility] [address] [place] [phone] 07/28/2023 15:04:13 07/30/2023 15:38:55 Pain of toe of right foot [id number] 38927 M79.674 Patient reports continued pain in toe after successful treatment for diabetic foot wound. Appears to be healing well per patient and clinical instructor. Will treat with ketorolac and encourage close PCP follow-up. Health Concerns Section Related Observation LastModified by Organization Detai ls LastModified Time None Recorded Concern Status LastModified by Organization Details LastModified Time None Recorded Advance Directives Directive None Recorded Payers Encounter Date Sequence Insurance Name Policy Number Policy Galvez Covered Member ID Galvez Member ID Guarantor Name 06/28/2023 1 [facility] [employer] - DOS ON OR AFTER 2022 - DUAL ELIGIBLE - CORRECTION OPTIONS AND ONE CARE (MEDICARE REPLACEMENT/AD VANTAGE - HMO) [place]en [place] [id number] [place] 07/28/2023 1 [facility] [employer] - DOS ON OR AFTER 2022 - DUAL ELIGIBLE - CORRECTION OPTIONS AND ONE CARE (MEDICARE REPLACEMENT/AD VANTAGE - HMO) Alden Green [id number] Alden Green Notes Date Note Type Note [...] .................. .................. .................. .................. .................. .................. ............... [facility] Nursing Assessment: Comments: Transcribed for VNA Gary Bunch MD [address] [place] [address],[address] [facility], [place], [phone], [employer] 06/28/2023 17:00:11 07/28/2023 text/html HPI: VNA reporting severe pain to his right foot for the last 4 days >calling to get assess>Ibuprofen and Tylenol with no relief. .................. .................. .................. .................. .................. .................. .................. ............... [facility] Nursing Assessment: Comments: Spoke with member's VNA [...] .................. .................. .................. .................. .................. .................. ............... Defense Travel Administrator Note From Pauly Olivier: Sent to a call for a pt [...] removed, wound is packed; picture uploaded to [employer]. BP:115/78, P:92, RR:18, SpO2:97% RA, T:97.3; Head: unremarkable; Lung sounds: clear bilaterally; Abdomen: soft, non-tender, no distention; Back: unremarkable; Extremities: right foot: no erythema or edema noted; extremity is euthermic, wound on right toe: packed; area around wound appears to be healing well; Skin: pink, warm, dry; [facility] consulted and orders Toradol 15mg IM; Toradol 15mg IM administered without incident; Red flags discussed. Pt has no further questions. [facility] Medication Orders: ketorolac 30 mg/mL (1 mL) injection solution: Administered .................. .................. .................. .................. .................. .................. .................. ............... Disposition: Fulfilled Ezequiel Thrasher MD [address] [facility],[address], [place], [address], [facility] - [employer], [employer] 07/28/2023 15:58:18
== END 2024-10-10 11:59 | disposition home or self-care (01) ==
PROVIDERS: PCP Nurse Practitioner Family; Visit Provider Student in an Organized Health Care Education/Training Program
DX: E11.65 Type 2 diabetes mellitus with hyperglycemia (principal); E11.51 Type 2 diabetes mellitus with diabetic peripheral angiopathy without gangrene; Z79.4 Long term (current) use of insulin; E78.5 Hyperlipidemia, unspecified; I10 Essential (primary) hypertension; E66.9 Obesity, unspecified
CPT/HCPCS: 99214; G2211

== ENCOUNTER → 2024-10-10 11:16 | Outpatient (BNVA) | payer OTHER, SELFPAY | PROVIDERS: PCP Nurse Practitioner Family; Visit Provider Student in an Organized Health Care Education/Training Program | DX: E11.65 Type 2 diabetes mellitus with hyperglycemia (principal); E11.51 Type 2 diabetes mellitus with diabetic peripheral angiopathy without gangrene; E78.5 Hyperlipidemia, unspecified; E66.9 Obesity, unspecified; I10 Essential (primary) hypertension; Z79.4 Long term (current) use of insulin; Z68.36 Body mass index [BMI] 36.0-36.9, adult | CPT/HCPCS: 82947; 99212 ==

== ENCOUNTER 2024-10-24 12:28 | Outpatient (AMB) | payer OTHER, SELFPAY ==
--- OUTSIDE RECORDS SUMMARY | 2024-10-24 12:37 | XMS_ITS | Data Portability ---
Author Organization [employer] [facility], [place] in - [place] Address [address] [place] [id number] Care Team Providers Care Federal Mediator Name Role Phone [facility] Referring Provider Assessment No assessment [...] Details Last Updated DateTime 3 16 /min 833512. 12 g 98.7 [degF] 175.26 cm 98 % 98 % 89 /min 151 mm[Hg] 90 mm[Hg] Not Available [employer] - production 3 16:56:45 Date Recorded Body temperature Oxygen saturation Oxygen saturation in Arterial blood by Pulse oximetry Body weight Respiratory rate Heart rate Body height Systolic blood pressure Diastolic blood pressure Provider Name and Address Organization Details Last Updated DateTime 3 97.3 [degF] 97 % 97 % 916777. 08 g 18 /min 92 /min 177.8 cm 115 mm[Hg] 78 mm[Hg] Not Available [employer] - production 3 15:04:18 Social History None recorded. Functional Status None recorded. Mental Status None recorded. Family History Nothing Reported. Medical History No medical history recorded. Past Encounters Encounter ID Performer Location Encounter Start Date Encounter Closed Date Diagnosis/Indication Diagnosis SNOMED-CT Code Diagnosis ICD10 Code Diagnosis Note [id number] Gary Bunch MD Main - [facility] [address] [place] [id number] 06/28/2023 16:56:38 06/28/2023 22:43:36 Low back pain 798569328 M54.50 57yo man presents with 5 days [...] current use of ibuprofen at 800mg q4-6h [id number] Ezequiel Thrasher MD Main - [facility] [address] [place] [phone] 07/28/2023 15:04:13 07/30/2023 15:38:55 Pain of toe of right foot [id number] 36429 M79.674 Patient reports continued pain in toe after successful treatment for diabetic foot wound. Appears to be healing well per patient and primary care provider. Will treat with ketorolac and encourage close PCP follow-up. Health Concerns Section Related Observation LastModified by Organization Detai ls LastModified Time None Recorded Concern Status LastModified by Organization Details LastModified Time None Recorded Advance Directives Directive None Recorded Payers Encounter Date Sequence Insurance Name Policy Number Policy Galvez Covered Member ID Galvez Member ID Guarantor Name 06/28/[address] [facility] [employer] - DOS ON OR AFTER 2022 - DUAL ELIGIBLE - CORRECTION OPTIONS AND ONE CARE (MEDICARE REPLACEMENT/AD VANTAGE - HMO) Alden Green [id number] Alden Green 07/28/[address] [facility] [employer] - DOS ON OR AFTER 2022 - DUAL ELIGIBLE - CORRECTION OPTIONS AND ONE CARE (MEDICARE REPLACEMENT/AD VANTAGE - HMO) Alden Green [id number] Alden Green Notes Date Note Type Note [...] Transcribed for VNA Gary Bunch MD [address] [place] [address],[address] [facility], [place], [address], [employer] 06/28/2023 17:00:11 07/28/2023 text/html HPI: VNA reporting [...] .................. .................. .................. .................. .................. .................. ............... 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 BP:115/78, P:92, RR:18, SpO2:97% RA, T:97.3; Head: unremarkable; Lung sounds: clear bilaterally; Abdomen: soft, non-tender, no distention; Back: unremarkable; Extremities: right foot: no erythema or edema noted; extremity is euthermic, wound on right toe: packed; area around wound appears to be healing well; Skin: pink, warm, dry; [facility] consulted and orders Toradol 15mg IM; Toradol 15mg IM administered without incident; Red flags discussed. Pt has no further questions. [facility] Medication Orders: ketorolac 30 mg/mL (1 mL) injection solution: Administered .................. .................. .................. .................. .................. .................. .................. ............... Disposition: Fulfilled Ezequiel Thrasher MD [address] [facility],[address], [place], [address], [facility] - Quantine[employer]IKEL, INGRID 07/28/2023 15:58:18
--- OUTSIDE RECORDS SUMMARY | 2024-10-24 12:37 | XMS_ITS | Continuity of Care Document ---
Author Organization [facility]. If a dditional information is needed, contact Health Information Management at [phone] Address [address] [place] [address] Phone Care Team Providers Care Fire Protection Engineer Name Role Phone Unavailable Unavailable Unavailable Unavailable [...] [Adacel];0.5 MILLILITER X1ED Quantity:1 Sly Medley MD Start:46-Edx-7042Wkb:2023 Comments:[id number] amoxicillin 875 MG / clavulanate 125 MG Oral Tablet;875 MILLIGRAM X1ED Quantity:1 Sly Medley MD Start:6-Zsz-8420Toz:19-Dec-19 Comments:[id number] doxycycline monohydrate 100 MG Oral Capsule;100 MILLIGRAM X1ED Quantity:1 Sly Medley MD Start:3-Nhv-7398Hmj:19-Dec-19 Comments:[id number] acetaminophen 325 MG / HYDROcodone bitartrate 5 MG Oral Tablet;1 TABLET X1ED Quantity:1 Sly Medley MD Start:8-Shp-3577Txt:19-Dec-19 Comments:[id number] Administration Instructions:CAUTION FALLS RISK MEDTOTAL DAILY ACETAMINOPHEN DOSE SHOULD NOT [id number] MGPER P T POLICY: PRN PAIN Procedures FOOT COMPLETE RIGHTResult:[facility] Name: JUAN JOSE SMITH [facility] Phys: Alexa Heart MD [address] [facility] : 1965 Age: 58 Sex: [place] [address] Acct: [id number] Loc: F.ED PHONE #: Exam Date: 12/19/2023 Status: REG ER FAX #: Radiology No: Unit No: [id number] EXAMS: [id number] FOOT COMPLETE RIGHT INDICATION: right ankle injury; [...] KATELIN ESTES JR, RT(R)(CT)(MR Transcribed Date/Time: 12/19/2023 (2202)Global Program Director: ZIA Printed Date/Time: 12/19/2023 (2203) BATCH NO: N/A PAGE 1 Signed Report Date:19-Dec-2023 Status:Completed ANKLE 3 + V RTResult:[facility] Name: JUAN JOSE SMITH [facility] Phys: Alexa Heart MD [address] [facility] : 1965 Age: 58 Sex: [place] [address] Acct: [id number] Loc: JamisonED PHONE #: Exam Date: 12/19/2023 Status: REG ER FAX #: Radiology No: Unit No: [id number] EXAMS: [id number] ANKLE 3 + V RT INDICATION: right [...] KATELIN ESTES JR, RT(R)(CT)(MR Transcribed Date/Time: 12/19/2023 (2143)Global Program Director: IZA Printed Date/Time: 12/19/2023 (2144) BATCH NO: N/A PAGE 1 Signed Report Date:19-Dec-2023 Status:Completed Immunizations Tdap Lot #:[id number], On:20-Dec-2023 Comments:Provider's Administ ration Notes:New immunization record Social History Smoking Status Smokes tobacco daily Recorded: 19-Dec-2023 Vital Signs 20-Dec-2023 00:46 Pulse83 Comments:83 Respiratory Rate18 Comments:18 O2 SAT98% Comments:98 BP Mqigbahe920nq[Hg] Comments:17 2 BP Wopqczvoy72pj[Hg] Comments:81 19-Dec-2023 20:58 TEMP KPCZICGYKO14d Comments:98.0 Pulse90 Comments:90 Respiratory Rate18 Comments:18 O2 SAT97% Comments:97 BP Nxsrfose551hu[Hg] Comments:18 7 BP Oylzfwybf36oc[Hg] Comments:88 Height5.6943796[ft_us] Comments: 5 Ypmnjg771ay Comments:109.000 19-Dec-2023 20:58 BMI34.4kg/m2 Comments:34.4 Encounters Emergency Encounter Reason:RIGHT FOOT PAIN Encounter Diagnosis:Cellulitis of right lower limb,Nicotine dependence, unspecified, uncomplicated,Effusion, right ankle,Bitten by cat, initial encounter,Encounter for immunization,Puncture wound without foreign body of left hand, initial encounter 19-Dec-2023 20:49Dg89-Otx-4920 00:46 [facility] Discharge Disposition:Discharged to home or self care (routine discharge) ? ? ? Sly Medley MD-19-Dec-2023 [facility] ([facility])EMERGENCY PROVIDER REPORTREPORT#:[id number] REPORT STATUS: SignedDATE:12/19/23 TIME: 2348PATIENT: JUAN JOSE SMITH UNIT #: [id number]#: [id number] ROOM/BED:AGE: 58 SEX: M PCP PHYS: No [...] [facility]. Then, about 3 weeks ago, he twisted it and felta pop. He was told it was not broken but still felt pain. He has just arrived[place] visit his cousin in [place] and they are about to embark on [...] Merino DPM Follow-Up: in 1-2 days Address: [address] [place] [address] at 06[address]RPT#:[id number] OF REPORT Plan of Treatment Future Tests Future scheduled test information is unavailable Pending Tests Pending diagnostic test information is unavailable Future Visits Future appointment information is unavailable Referrals to Other Providers Reason for Referral Referral Start Date Provider Provider Contact Information Provider Address Jagjit Merino DPM Work Phone: [phone] [place], [place] [id number] Future Procedures Future procedure information is unavailable Future Medications Future medication information is unavailable Patient Instructions ED Cat Bite ED Cellulitis Assessments Diagnosis Onset Date Resolution Status Cat bite of left hand Active Cellulitis of right foot Act deniz
[2024-10-24 12:39] VITALS: BP 128/68; PULSE 81; O2SAT 92; BMI 36.5
--- NOTE | 2024-10-24 12:39 | A.OFFVIS_ITS ---
Vital Signs 10/24/24 12:39 Height 5 ft 10 in Weight 254 lb 6.615 oz BMI 36.5 BP 128/68 Blood Pressure Location Rt brachial Position Sitting Pulse 81 Pulse Source Pulse Oximeter Pulse Oximetry (%) 92 Oxygen Delivery Method Room Air Intake Visit Reasons: T2DM Intake Note: Patient present today for Type 2 Diabetes Mellitus Last Diabetic eye exam: Patient doesn't remember Last Podiatry Visit: Doesn't have one Random Glucose: 290 mg/dl HgA1C: 10.5% Preparation Supervisor Canning Required: No Accompanied by: Self / Same As Patient Allergies adhesive tape Allergy (Intermediate, Verified 10/24/24 12:52) Rash codeine [Tylenol-Codeine #3] Allergy (Intermediate, Verified 10/24/24 12:52) Rash hydrocodone [Vicodin] Allergy (Intermediate, Verified 10/24/24 12:52) confusion/does not relieve pain morphine Allergy (Intermediate, Verified 10/24/24 12:52) rash diphenhydramine [From Benadryl] Adverse Reaction (Intermediate, Verified 10/24/24 12:52) Itching Medication List - Last Reconciled 10/24/24 by Meera Carbajal MD albuterol sulfate 90 mcg/actuation (Ventolin HFA) 2 puffs PO Q4-6H PRN blood sugar diagnostic (FreeStyle Lite Strips) 1 strip miscellaneous TID blood-glucose meter (FreeStyle Lite Meter kit) check sugar twice a day blood-glucose meter,continuous (FreeStyle Jori 3 [place]) As directed blood-glucose meter,continuous (FreeStyle Jori 3 [place]) As directed blood-glucose sensor (FreeStyle Jori 3 Sensor device) As directed blood-glucose sensor (FreeStyle Jori 3 Plus Sensor device) As directed every 10 days Uncontrolled type 2 diabetes mellitus with hyperglycemia E11.65 Diabetes mellitus type: type 2 Glycemic state: with hyperglycemia Type 2 diabetes mellitus with diabetic peripheral angiopathy without gangrene, with long-term current use of insulin E11.51; Z79.4 [exterior ramp As directed] ezetimibe 10 mg PO DAILY 90 days fluticasone propionate 50 mcg/actuation (Flonase Allergy Relief) 1 spray int ranasal DAILY 30 days gemfibrozil 600 mg PO DAILY 90 days ibuprofen 800 mg PO TID PRN insulin glargine (Lantus Solostar U-100 Insulin) 90 units (0.9 mL) subcut ONCE insulin lispro (Humalog KwikPen (U-100) Insulin) 6 units (0.06 mL) subcut DAILY lancets (FreeStyle Lancets) check sugar three times a day lisinopril 20 mg PO DAILY 90 days metformin 1,000 mg PO BID 90 days [mobility scooter As directed] omeprazole 20 mg PO DAILY 90 days pen needle, diabetic (BD Ultra-Fine Short Pen Needle) twice a day pen needle, diabetic (BD Ultra-Fine Short Pen Needle) to inject insulin twice daily rosuvastatin (Crestor) 40 mg PO DAILY 90 days semaglutide (Ozempic) 2 mg (0.75 mL) subcut QWEEK HPI Comments Details: 58-year-old male with past medical history significant for hypertension, hyperlipidemia, peripheral artery disease, GERD, coming in today for follow up of type 2 diabetes mellitus History of diabetes Diagnosed in his early 40s Been on insulin for at least the last 10 years Prior therapy: He was on levemir 85 units twice a day however recently sometime around fall 2023 got switched to Lantus [facility] he is now taking 90 units once daily since Jul 2024 Glipizide discontinued in August 2024 Trulicity 4.5 mg weekly discontinued in August 2024 due to ineffectiveness Current regimen: Ozempic 2 mg weekly increased end of Oct 2024, started on it beginning of August 2024 Metformin 1000 b.i.d. Lantus 90 units once daily bedtime ,?? Today he is telling me that he has been injecting 90 units twice a day because he had his older prescription from his PCP and then we were prescription from me and he thought he was supposed to take both? ? Humalog 6 units before supper started August 2024 Random Glucose: 290 mg/dl ate 2 eggs equatorial guinean toast , sometime of cream apples HgA1c: 9.9% 07/29/24 HBA1c 10.5 % 10/24/24 Denies any symptoms of hyperglycemia including polyphagia, polyuria, polydipsia. Denies any hypoglycemic symptoms. Nothing less than 70. He says he usually doesnt go below 160. He has a few readings on his glucometer today that he checked over the past 2 weeks SMBG's Fasting 114 , 209 Pre meal 135, 136 Post meals 257, 383 , 341 14 day av 217 7 day average 270 He brought the [employer] Jori 3+ today but his phone does not have data, and he did not get the reader. He is unclear why the pharmacy did not send him a reader. He also initially had refused to make an appointment with the educators I still does not have that set up either. Diet: Skips breakfast most days Between 12 and 1: gets moms meals , hamburger or egg and cheese omeltte with apple sauce with 2 sticks of equatorial guinean toast Sometimes snacks in between: ice cream, eddie cookies , Around 7 pm Has a soda 12 oz can coke twice a day. Refuses to see set up mechanic stamping machines because he food is my only comfort, I do not like people to tell me how to eat On disability since 10 to 12 years. Sleeps a lot not active. Does do the home chores himself. Very little walking. Bad knees and back cause him to have pain. Vaccines: Complications Eye exam: Last Diabetic Eye exam: almost 1 year, has yearly appointments, denies history of retinopathy Last Podiatry Visit: Does not see a Firebreak Cutter Neuropathy: Has severe neuropathy with a history of peripheral artery disease, status post angiography in 2022 Kidney disease: EGFR greater than 60, creatinine 0.99 in May 2024, urine microalbumin/creatinine ratio elevated at 182.7 in March 2024 Macrovascular complications: Peripheral artery disease, has had an angioplasty in 2022 Statin: On rosuvastatin 40 mg daily and gemfibrozil 600 mg b.i.d., LDL 210 mg/dL from August 2024, subsequently started on Zetia 10 mg daily by primary care MIKEY/ARB: On lisinopril 20 mg daily, Exercise: None Physical exam General: sitting comfortably in no acute distress HEENT: normocephalic/atraumatic, Neck: supple Cardiac: normal heart sounds Pulm: normal breath sounds B/L, no added breath sounds Abd: not distended, no tenderness Extremities: Bilateral pitting edema Foot exam: Examined August 2024: Very poor foot care, has calluses, skin sloughing, no sensation to monofilament, no sensation to vibration, intact pulses in feet are warm Laboratory Tests 10/08/21 05/27/22 03/08/23 11:28 11:05 12:24 Plt Count Creatinine Estimated GFR Random Glucose Fasting Glucose Estimat Average Glucose Hgb A1c (Clinic) 7.9 H AST ALT Triglycerides Cholesterol LDL Cholesterol, Calc HDL Cholesterol TSH Urine Creatinine 152.98 218.45 Urine Microalbumin 53.0 35.0 Microalb/Creat Ratio 34.6 16.0 06/12/23 09/20/23 03/13/24 13:32 10:03 09:46 Plt Count 184 Creatinine Estimated GFR Random Glucose Fasting Glucose 312 H Estimat Average Glucose 278 Hgb A1c (Clinic) 9.1 H 8.1 H AST 11 ALT 12 Triglycerides 199 H Cholesterol 278 H LDL Cholesterol, Calc 190 H HDL Cholesterol 49 TSH 1.64 Urine Creatinine Urine Microalbumin Microalb/Creat Ratio 03/13/24 05/14/24 07/29/24 09:55 14:53 15:36 Plt Count Creatinine 0.99 Estimated GFR > 60 Random Glucose 424 H* Fasting Glucose Estimat Average Glucose Hgb A1c (Clinic) 9.9 H AST ALT Triglycerides Cholesterol LDL Cholesterol, Calc HDL Cholesterol TSH Urine Creatinine 107.25 Urine Microalbumin 196.0 Microalb/Creat Ratio 182.7 H Laboratory Tests 09/10/24 10/10/24 11:41 11:25 Sodium 137 Potassium 4.2 Creatinine 0.78 Estimated GFR > 60 Glucose (Clinic) 144 H Fasting Glucose 297 H Calcium 9.2 D Triglycerides 226 H Cholesterol 295 H LDL Cholesterol, Calc 210 H HDL Cholesterol 40 L TSH 0.79 [facility] Medical History (Updated 08/14/24 @ 13:09 by Meera Carbajal MD) Obesity (BMI 30-39.9) Nicotine dependence, cigarettes, uncomplicated Cat bite Diabetes Dysplastic colon polyp Parasomnia CHF (congestive heart failure) Sleep apnea High cholesterol Hypertension Acid reflux Surgical History History of esophagogastroduodenoscopy (EGD) H/O colonoscopy Hx of rotator cuff surgery H/O resection of small bowel History of colon resection Family History Mother No problems noted. Father No problems noted. Social History Housing: Apartment Housing Other:: mobile home Are you a primary rn long term care to a significant other at home: No Do you presently have visiting nurse or other home services: No Alcohol intake: current Alcohol intake frequency: does not drink Patient Tobacco Use Status: Current everyday Tobacco user Tobacco use type: Cigarette and Cigar Cigarette Packs Per Day: 0.5 Cigarettes Per Day: 5 Years Smoked: 35+ e-Cigarette/Vaping Use: Never Used Second Hand Smoke Exposure: No Substance Use Type: Marijuana Current occupational status: unemployed Current occupation: left handed Cognitive needs: No Hearing needs: No Vision needs: No Physical Exam Vital Signs: Last Vital Signs Pulse 81 10/24/24 12:39 BP 128/68 10/24/24 12:39 Pulse Ox 92 10/24/24 12:39 Oxygen Delivery Method Room Air 10/24/24 12:39 BMI result Body Mass Index 36.5 Results AMB Hemoglobin A1c AMB Hemoglobin A1c 10.5 % Last Edit by HENRIETTA Foreman on 10/24/24 13:27 Results Reviewed Results Reviewed: Laboratory Last Values Glucose (Clinic) 290 mg/dL (60-115) H 10/24/24 12:48 Assessment & Plan Assessment & Plan (1) Uncontrolled diabetes mellitus: Code(s): E11.65 - Type 2 diabetes mellitus with hyperglycemia Category: Medical Qualifiers: Diabetes mellitus type: type 2 Glycemic state: with hyperglycemia Qualified Code(s): E11.65 - Type 2 diabetes mellitus with hyperglycemia Plan: 58-year-old male with past medical history significant for peripheral artery disease, hypertension, hyperlipidemia, GERD coming in today for follow up of type 2 diabetes mellitus with hyperglycemia with long-term insulin use with complications of peripheral vascular disease. A1c up to 10.5% October 2024 from A1c elevated at 9.9% in July 2024. He brought his glucometer which had a few readings today with a his fastings anywhere from 116 to 200s. Post meals are in 200s and 300s. He is also confused about whether he is taking Lantus 90 units daily at bedtime or 180 units because he has to prescriptions of Lantus apparently 1 from his PCP 1 from me. In the chart I only see 1 prescriptions. He says the other insulin was his left over insulin. I educated him about the difference between mealtime and basal insulin and when which is supposed to be taken. We will titrate up his Humalog today. The Lantus I told him to do 90 units at bedtime. Eventually we will plan to add as an SGLT2 inhibitor but we will hold off now given the level of hyperglycemia. He is also not very particular about pre bolusing himself and sometimes takes the Humalog after his meal. Reiterated importance to him about taking it at the right time. Sometimes he misses doses of Lantus. Plan: -Insulin Lantus (Glargine) 90 units at bedtime -Insulin Humalog Kwikpen (Lispro) 10 units 15 mins before lunch and dinner -Insulin Humalog Kwikpen 2 units 15 mins before a snack -Continue Ozempic 2mg weekly -Continue metformin 1000 mg twice daily -See educator to learn about sensor applicator -Follow up in 6 weeks with me -discussed complications of uncontrolled hyperglycemia including stroke, PA, amputations, gangrene, microvascular complications -discussed hypoglycemic treatment teaching -podiatry referral placed last visit -counseled about adverse effects of smoking and advised to quit smoking -extensively advised to give up soda, he does not want to see a set up mechanic stamping machines (2) Dyslipidemia: Code(s): E78.5 - Hyperlipidemia, unspecified Category: Medical Plan: LDL above goal at 210 mg/dL from August 2024. Currently on rosuvastatin 40 mg daily and gemefibrozil 600 mg b.i.d.. Primary care started with Zetia 10 mg daily, agree with this addition (3) Hypertension: Code(s): I10 - Essential (primary) hypertension Category: Medical Qualifiers: Hypertension type: primary hypertension Qualified Code(s): I10 - Essential (primary) hypertension Plan: Blood pressure at goal, currently on lisinopril 20 mg daily. Continue same.. (4) Obesity (BMI 30-39.9): Code(s): E66.9 - Obesity, unspecified Category: Medical Plan: BMI 36.4 kg per m2. Current weight 253 lb up from 249 lb. He gained 20 lb over the last 3-4 months despite being on Trulicity. Switched to Ozempic as he reina led Trulicity in September 2024. Continue Ozempic to 2 mg weekly Plan I spent 30 minutes in reviewing the record, seeing the patient and documenting i n the medical record. Orders: Orders AMB Hemoglobin A1c Today E11.65 - Type 2 diabetes mellitus with hyperglycemia, E11.9 - Type 2 diabetes mellitus without complications, Z13.9 - Encounter for screening, unspecified Medications: Changed From insulin lispro (Humalog KwikPen (U-100) Insulin) Inject once daily 15 mins prior to supper 6 units (0.06 mL) subcut DAILY 15 mL 6RF To insulin lispro (Humalog KwikPen (U-100) Insulin) Inject 10 units twice daily before lunch and dinner Inject 2 units before snacks 15 mL 6RF Refilled blood-glucose meter,continuous (Excep AppsStyle Jori 3 [place]) As directed 1 ea 0RF Patient Instructions: Insulin Lantus (Glargine) 90 units at bedtime Insulin Humalog Kwikpen (Lispro) 10 units 15 mins before lunch and dinner Insulin Humalog Kwikpen 2 units 15 mins before a snack Continue Ozempic 2mg weekly Continue metformin 1000 mg twice daily See educator to learn about sensor applicator Follow up in 6 weeks with me Coding Level of Care Code Est Pt Level 4 (65322) Diagnoses Uncontrolled type 2 diabetes mellitus with hyperglycemia E11.65 Diabetes mellitus type: type 2 Glycemic state: with hyperglycemia Dyslipidemia E78.5 Primary hypertension I10 Hypertension type: primary hypertension Obesity (BMI 30-39.9) E66.9 Time Spent (min) 30
[2024-10-24 12:51] LABS: Glucose, Whole Blood 290 mg/dL (60-115)
== END 2024-10-24 13:21 | disposition home or self-care (01) ==
PROVIDERS: PCP Nurse Practitioner Family; Visit Provider Student in an Organized Health Care Education/Training Program
DX: E11.65 Type 2 diabetes mellitus with hyperglycemia (principal); E78.5 Hyperlipidemia, unspecified; I10 Essential (primary) hypertension; E66.9 Obesity, unspecified; Z13.9 Encounter for screening, unspecified; E11.9 Type 2 diabetes mellitus without complications
CPT/HCPCS: 99214

== ENCOUNTER → 2024-10-24 12:28 | Outpatient (BNVA) | payer OTHER, SELFPAY | PROVIDERS: PCP Nurse Practitioner Family; Visit Provider Student in an Organized Health Care Education/Training Program | DX: E11.65 Type 2 diabetes mellitus with hyperglycemia (principal); E78.5 Hyperlipidemia, unspecified; E66.9 Obesity, unspecified; I10 Essential (primary) hypertension; Z79.84 Long term (current) use of oral hypoglycemic drugs; Z68.36 Body mass index [BMI] 36.0-36.9, adult | CPT/HCPCS: 82947; 83036; 99212 ==

== ENCOUNTER 2024-11-13 09:46 | Outpatient (AMB) | payer OTHER, SELFPAY ==
[2024-11-13 09:55] VITALS: BP 126/76; PULSE 82; TEMP 36.8; O2SAT 97; BMI 36.3
--- NOTE | 2024-11-13 09:55 | A.OFFPC_ITS ---
Vital Signs 11/13/24 09:55 Height 5 ft 10 in Weight 253 lb BMI 36.3 BP 126/76 Blood Pressure Location Lt brachial Position Sitting Pulse 82 Pulse Source Pulse Oximeter Temp 98.2 F Temp Source Oral Pulse Oximetry (%) 97 Intake Visit Reasons: follow up per JG Allergies adhesive tape Allergy (Intermediate, Verified 11/13/24 09:55) Rash codeine [Tylenol-Codeine #3] Allergy (Intermediate, Verified 11/13/24 09:55) Rash hydrocodone [Vicodin] Allergy (Intermediate, Verified 11/13/24 09:55) confusion/does not relieve pain morphine Allergy (Intermediate, Verified 11/13/24 09:55) rash diphenhydramine [From Benadryl] Adverse Reaction (Intermediate, Verified 11/13/24 09:55) Itching Medication List - Last Reconciled 11/13/24 by Romulo Ball, MIX CHEMIST- albuterol sulfate 90 mcg/actuation (Ventolin HFA) 2 puffs PO Q4-6H PRN blood sugar diagnostic (FreeStyle Lite Strips) 1 strip miscellaneous TID blood-glucose meter (FreeStyle Lite Meter kit) check sugar twice a day blood-glucose meter,continuous (FreeStyle Jori 3 [place]) As directed blood-glucose meter,continuous (FreeStyle Jori 3 [place]) As directed blood-glucose sensor (FreeStyle Jori 3 Sensor device) As directed blood-glucose sensor (FreeStyle Jori 3 Plus Sensor device) As directed every 10 days Uncontrolled type 2 diabetes mellitus with hyperglycemia E11.65 Diabetes mellitus type: type 2 Glycemic state: with hyperglycemia Type 2 diabetes mellitus with diabetic peripheral angiopathy without gangrene, with long-term current use of insulin E11.51; Z79.4 [exterior ramp As directed] ezetimibe 10 mg PO DAILY fluticasone propionate 50 mcg/actuation (Flonase Allergy Relief) 1 spray intranasal DAILY 30 days gemfibrozil 600 mg PO DAILY 90 days ibuprofen 800 mg PO TID PRN insulin glargine (Lantus Solostar U-100 Insulin) 90 units (0.9 mL) subcut ONCE insulin lispro (Humalog KwikPen (U-100) Insulin) Inject 10 units twice daily before lunch and dinner Inject 2 units before snacks lancets (FreeStyle Lancets) check sugar three times a day lisinopril 20 mg PO DAILY 90 days metformin 1,000 mg PO BID 90 days [mobility scooter As directed] omeprazole 20 mg PO DAILY 90 days pen needle, diabetic (BD Ultra-Fine Short Pen Needle) twice a day pen needle, diabetic (BD Ultra-Fine Short Pen Needle) to inject insulin twice daily rosuvastatin (Crestor) 40 mg PO DAILY 90 days semaglutide (Ozempic) 2 mg (0.75 mL) subcut QWEEK Tobacco use date assessed: 11/13/24 Dental Screening Dental Screen Date: 11/13/24 Did you have a dental visit in the last 12 months?: Yes Did you have a dental problem in the last 6 months where you did not have access to dental care?: No Was dental information given to patient?: Patient has dentist HPI follow up per HPI Details Chief Complaint The patient presents with left shoulder pain, experiencing difficulty with lateral raises. History of Present Illness The patient is a 59-year-old male presenting with left shoulder pain. He reports experiencing significant problems with raising the left arm laterally, suggesting a possible rotator cuff tear. Physical therapy attempts have been previously unsuccessful. In addition to shoulder concerns, he has an established history of type 2 diabetes mellitus, managed under endocrinological supervision with daily insulin injections. Neuropathy affecting the legs has been confirmed, with notable calluses present on both feet, though infection is not evident at this time. He has declined podiatric consultation. His heavy smoking habit necessitates further evaluation with low-dose CT scanning due to associated risks. Social History - Substance Use: Patient continues to sm jovon heavily. - Diet: Patient admits to having poor di etary habits. Health Maintenance - Encouragement to participate in low-do se CT scan due to heavy smoking Review of Systems - Musculoskeletal: Reports difficulty wi th lateral raises of the left shoulder -+ neuropathy, denies any SOB or CP. Physical Exam General: Cooperative, healthy appearing, comfortable, no acute distress and well developed Orientation: Patient oriented x3 Limitations: Trouble doing lateral raises with left upper extremity Head: Normal to inspection Ears: Hearing grossly normal bilaterally Nose: Normal external nose present Face and sinus: Normal facial exam Eyes: Appearance normal, both eyes and all related structures Neck: Normal visual inspection and Yes full ROM Respiratory: Normal respiratory effort and able to speak in complete sentences. Clear to auscultation bilaterally, slightly diminished bilaterally Cardiovascular: Regular rate and rhythm. Normal S1 and S2 GI: Normal to inspection. Soft to palpation and nontender Neuro: Patient oriented x3, neuropathy to bilateral extremities, cannot feel with use of monofilament to bilateral feet Extremities: Calluses to bilateral big toes, plantar aspects. Positive Márquez, positive Neers, positive Jobes on left shoulder. + anterior raises, unable to perform lateral raises (? rotator cuff tear) Results Plan For the suspected left rotator cuff tear that is unresponsive to past physical therapy, I will initiate an X-ray with a subsequent MRI to better ascertain the extent of tissue damage. For managing diabetes, continued insulin use is important alongside immediate dietary changes to improve overall health. As a preventative measure, participating in a low-dose CT scan program due to intensive tobacco use is advised. Additionally, the patient will be advised on maintaining proper foot care considering his neuropathy and will be encouraged to seek podiatric evaluation, which he has previously declined. Discussion Notes We discussed the likelihood of a rotator cuff tear in the left shoulder due to persistent pain and functional limitations during lateral raises. I explained the benefits and objectives of obtaining an X-ray and MRI for further assessment. The patient was informed about the necessity of dietary management in managing diabetes and the importance of addressing his smoking habit. He was advised on the potential benefits of re-entering the low-dose CT scan program and encouraged to pursue a technical buyer evaluation to manage foot-related complications due to diabetic neuropathy effectively. I outlined the necessity of these measures for long-term health improvement and addressed his queries satisfactorily. Patient Instructions - Schedule and complete an X-ray and MRI of the left shoulder. - Continue taking insulin daily and cons ider dietary changes to improve diabetes management. - Participate in the low-dose CT scan pr ogram due to heavy smoking. - Consider consulting a technical buyer for p ersistent calluses and neuropathy. - Follow up for further discussion on mo vement difficulties and overall health management. [facility] Medical History Obesity (BMI 30-39.9) Nicotine dependence, cigarettes, uncomplicated Cat bite Diabetes Dysplastic colon polyp Parasomnia CHF (congestive heart failure) Sleep apnea High cholesterol Hypertension Acid reflux Surgical History History of esophagogastroduodenoscopy (EGD) H/O colonoscopy Hx of rotator cuff surgery H/O resection of small bowel History of colon resection Family History Mother No problems noted. Father No problems noted. Social History Housing: Apartment Housing Other:: mobile home Are you a primary post acute care nurse to a significant other at home: No Do you presently have visiting nurse or other home services: No Alcohol intake: current Alcohol intake frequency: does not drink Patient Tobacco Use Status: Current everyday Tobacco user Tobacco use type: Cigarette and Cigar Cigarette Packs Per Day: 0.5 Cigarettes Per Day: 5 Years Smoked: 35+ e-Cigarette/Vaping Use: Never Used Second Hand Smoke Exposure: No Substance Use Type: Marijuana Current occupational status: unemployed Current occupation: left handed Cognitive needs: No Hearing needs: No Vision needs: No Questionnaire PHQ-9 Over the last 2 weeks, how often have you been bothered by any of the following problems? 94626 - PHQ-9 Billing: Patient declined-do not bill Source: Developed by Drs. Henri Puentes, Cassi Wisdom, Rick Rick and colleagues, with an educational arlet from [employer]. Thrive Questionnaire Date Thrive assessed: 11/13/24 I am a: Patient What is your living situation today?: I have a steady place to live Within the past 12 months, did the food you bought not last and you didn't have the money to get more?: Often true Within the past 12 months, did you worry whether your food would run out before you got money to buy more?: Sometimes True Do you have trouble paying for medicines?: I choose not to answer this question Do you have trouble getting transportation to medical appointments?: I choose not to answer this question Do you have trouble paying your heating and electricity bill?: I choose not to answer this question Do you have trouble taking care of your child, family member or friend?: I choose not to answer this question Do you have trouble with day-to-day activities such as bathing, preparing meals, shopping, managing finances, etc.?: I choose not to answer this question Are you currently unemployed and looking for a job?: I choose not to answer this question Are you interested in more education?: I choose not to answer this question Please select the resources that you would like help with: None Currently or been in a relationship where the following occur: I choose not to answer THRIVE Score: 2 AUDIT C Alcohol Use Questionnaire (AUDIT-C) 1. How often do you have a drink containing alcohol?: Never 3. How often do you have six or more drinks on one occasion?: Never Total Score: 0 Score Reviewed/Action Taken: Yes JULIETTE-7 AMB Questionnaire JULIETTE-7 Date JULIETTE - 7 assessed: 11/13/24 Feeling nervous, anxious, or on edge: 0 = Not at all Not being able to stop or control worryin = Not at all Worrying too much about different things: 0 = Not at all Trouble relaxin = Not at all Being so restless that it is hard to sit still: 0 = Not at all Becoming easily annoyed or irritable: 0 = Not at all Feeling afraid as if something awful might happen: 0 = Not at all Total JULIETTE-7 score (0-4 normal; 5-9 mild; 10-14 moderate; 15-21 severe): 0 Source: Developed by Drs. Henri Puentes, Cassi Wisdom, Rick Rick and colleagues, with an educational arlet from [employer]. JULIETTE-7 Assessment Billing JULIETTE-7 Assessment Tool: JULIETTE-7 Assessment 50287 Physical exam (Primary Care) Vital Signs: Last Vital Signs Temp 98.2 F 11/13/24 09:55 Pulse 82 11/13/24 09:55 BP 126/76 11/13/24 09:55 Pulse Ox 97 11/13/24 09:55 BMI result Body Mass Index 36.3 Tobacco/Smoking Status: Tobacco use Status Tobacco use date assessed 11/13/24 11/13/24 09:57 Patient Tobacco Use Status Current everyday Tobacco 11/13/24 09:57 Tobacco use type Cigarette,Cigar 11/13/24 09:57 e-Cigarette/Vaping Use Never Used 11/13/24 09:57 Thrive Assessment: Date of Thrive Assessment Date Thrive assessed 11/13/24 11/13/24 09:57 Currently or been in a relationship where the following occur: I choose not to answer Coding Level of Care Code Est Pt Level 3 (19509) Diagnoses Left shoulder pain M25.512 Diabetes E11.9 Additional Codes JULIETTE-7 Assessment Billing - JULIETTE-7 Assessment Tool: JULIETTE-7 Assessment 03033 ([id number]) Assessment & Plan Assessment & Plan (1) Left shoulder pain: Code(s): M25.512 - Pain in left shoulder Category: Medical (2) Diabetes: Code(s): E11.9 - Type 2 diabetes mellitus without complications Category: Medical Plan . Orders: Orders XR shoulder LT min 2V Today M25.512 - Pain in left shoulder Complete Blood Count Auto Diff Today E11.9 - Type 2 diabetes mellitus without complications Comprehensive [place]. Panel Fast Today E11.9 - Type 2 diabetes mellitus without complications TSH reflex Free T4 Today E11.9 - Type 2 diabetes mellitus without complications UA CC w/rflx Micro + Cult Today E11.9 - Type 2 diabetes mellitus without complications Lipid Panel Today E11.9 - Type 2 diabetes mellitus without complications
--- OUTSIDE RECORDS SUMMARY | 2024-11-13 11:10 | XMS_ITS | Continuity of Care Document ---
Author Organization [facility]. If a dditional information is needed, contact Health Information Management at [phone] [place] [address] Phone Care Team Providers Care Grinding Wheel Inspector Name Role Phone Unavailable Unavailable Unavailable Unavailable [...] [Adacel];0.5 MILLILITER X1ED Quantity:1 Sly Medley MD Start:61-Foc-6899Wau:2023 Comments:[id number] amoxicillin 875 MG / clavulanate 125 MG Oral Tablet;875 MILLIGRAM X1ED Quantity:1 Sly Medley MD Start:9-Qlf-2621Ipa:19-Dec-19 Comments:[id number] doxycycline monohydrate 100 MG Oral Capsule;100 MILLIGRAM X1ED Quantity:1 Sly Medley MD Start:5-Tev-0118Etq:19-Dec-19 Comments:[id number] acetaminophen 325 MG / HYDROcodone bitartrate 5 MG Oral Tablet;1 TABLET X1ED Quantity:1 Sly Medley MD Start:5-Bmi-1412Qkk:19-Dec-19 Comments:[id number] Administration Instructions:CAUTION FALLS RISK MEDTOTAL DAILY ACETAMINOPHEN DOSE SHOULD NOT AATESP0313 MGPER P T POLICY: PRN PAIN Procedures FOOT COMPLETE RIGHTResult:[facility] Name: JUAN JOSE SMITH [facility] Phys: Alexa Heart MD [address] [facility] : 1965 Age: 58 Sex: [place] [address] Acct: [id number] Loc: F.ED PHONE #: Exam Date: 12/19/2023 Status: REG ER FAX #: Radiology No: Unit No: [id number] EXAMS: [id number] FOOT COMPLETE RIGHT INDICATION: right ankle injury; [...] KATELIN ESTES JR, RT(R)(CT)(MR Transcribed Date/Time: 12/19/2023 (2202)Charter Coach Driver: ZIA Printed Date/Time: 12/19/2023 (2203) BATCH NO: N/A PAGE 1 Signed Report Date:19-Dec-2023 Status:Completed ANKLE 3 + V RTResult:[facility] Name: JUAN JOSE SMITH [facility] Phys: Alexa Heart MD [address] [facility] : 1965 Age: 58 Sex: [place] [address] Acct: [id number] Loc: JamisonED PHONE #: Exam Date: 12/19/2023 Status: REG ER FAX #: Radiology No: Unit No: [id number] EXAMS: [id number] ANKLE 3 + V RT INDICATION: right [...] KATELIN ESTES JR, RT(R)(CT)(MR Transcribed Date/Time: 12/19/2023 (2143)Charter Coach Driver: ZIA Printed Date/Time: 12/19/2023 (2144) BATCH NO: N/A PAGE 1 Signed Report Date:19-Dec-2023 Status:Completed Immunizations Tdap Lot #:[id number], On:20-Dec-2023 Comments:Provider's Administ ration Notes:New immunization record Social History Smoking Status Smokes tobacco daily Recorded: 19-Dec-2023 Vital Signs 20-Dec-2023 00:46 Pulse83 Comments:83 Respiratory Rate18 Comments:18 O2 SAT98% Comments:98 BP Tkfoyrhe775zx[Hg] Comments:17 2 BP Yofvfbbsg11eq[Hg] Comments:81 19-Dec-2023 20:58 Jgwhkiibytg48o Comments:98.0 Pulse90 Comments:90 Respiratory Rate18 Comments:18 O2 SAT97% Comments:97 BP Dxokfogh292th[Hg] Comments:18 7 BP Qdkkorhno21lc[Hg] Comments:88 Height5.1074092[ft_us] Comments: 5 Vemocg753ug Comments:109.000 19-Dec-2023 20:58 BMI34.4kg/m2 Comments:34.4 Encounters Emergency Encounter Reason:RIGHT FOOT PAIN Encounter Diagnosis:Cellulitis of right lower limb,Nicotine dependence, unspecified, uncomplicated,Effusion, right ankle,Bitten by cat, initial encounter,Encounter for immunization,Puncture wound without foreign body of left hand, initial encounter 19-Dec-2023 20:67Gp75-Rcf-1579 00:46 [facility] Discharge Disposition:Discharged to home or self care (routine discharge) ? ? ? Sly Medley MD-19-Dec-2023 [facility] ([facility])EMERGENCY PROVIDER REPORTREPORT#:[id number] REPORT STATUS: SignedDATE:12/19/23 TIME: 2348PATIENT: JUAN JOSE SMITH UNIT #: [id number]#: [id number] ROOM/BED:AGE: 58 SEX: M PCP PHYS: No [...] [facility]. Then, about 3 weeks ago, he twisted it and felta pop. He was told it was not broken but still felt pain. He [place] just [place] cousin in [place] and they are about to embark on a cruise. Hewanted his leg looked at before the cruise. [facility].Hx Obtained From [...] Report Impression - Status: SIGNED Entered: 12/19/2023 214IMPRESSION:No acute fracture or dislocation. Diffuse lower extremity [...] Instructions ED Cat Bite, ED CellulitisReferralsProvider Referral: Jagijt Merino DPBobo Follow-Up: in 1-2 days Address: [address] [place] [id number] Signed by Alexa Heart MD on 12/20/23 at 0634RPT#:[id number] OF REPORT Plan of Treatment Future Tests Future scheduled test information is unavailable Pending Tests Pending diagnostic test information is unavailable Future Visits Future appointment information is unavailable Referrals to Other Providers Reason for Referral Referral Start Date Provider Provider Contact Information Provider Address Jagjit Merino DPM Work Phone: [phone] [place], [place] [id number] Future Procedures Future procedure information is unavailable Future Medications Future medication information is unavailable Patient Instructions ED Cat Bite ED Cellulitis Assessments Diagnosis Onset Date Resolution Status Cat bite of left hand Active Cellulitis of right foot Act deniz
--- OUTSIDE RECORDS SUMMARY | 2024-11-13 11:10 | XMS_ITS | Data Portability ---
Author Organization [facility] [place] [facility] Address [address] [place] [id number] Care Team Providers Care Enamel Burner Name Role Phone [facility] Referring Provider Assessment No assessment [...] Details Last Updated DateTime 3 16 /min 986832. 12 g 98.7 [degF] 175.26 cm 98 % 98 % 89 /min 151 mm[Hg] 90 mm[Hg] Not Available [employer] - production 3 16:56:45 Date Recorded Body temperature Oxygen saturation Oxygen saturation in Arterial blood by Pulse oximetry Body weight Respiratory rate Heart rate Body height Systolic blood pressure Diastolic blood pressure Provider Name and Address Organization Details Last Updated DateTime 3 97.3 [degF] 97 % 97 % 686006. 08 g 18 /min 92 /min 177.8 cm 115 mm[Hg] 78 mm[Hg] Not Available [employer] - production 3 15:04:18 Social History None recorded. Functional Status None recorded. Mental Status None recorded. Family History Nothing Reported. Medical History No medical history recorded. Past Encounters Encounter ID Performer Location Encounter Start Date Encounter Closed Date Diagnosis/Indication Diagnosis SNOMED-CT Code Diagnosis ICD10 Code Diagnosis Note [id number] Gary Bunch MD [facility] [address] [place] [phone] 06/28/2023 16:56:38 06/28/2023 22:43:36 Low back pain 898463727 M54.50 57yo man presents with 5 days [...] current use of ibuprofen at 800mg q4-6h [id number] Ezequiel Thrasher MD [facility] [address] [place] [id number] 07/28/2023 15:04:13 07/30/2023 15:38:55 Pain of toe of right foot [id number] 79552 M79.674 Patient reports continued pain in toe after successful treatment for diabetic foot wound. Appears to be healing well per patient and public health aide. Will treat with ketorolac and encourage close PCP follow-up. Health Concerns Section Related Observation LastModified by Organization Detai ls LastModified Time None Recorded Concern Status LastModified by Organization Details LastModified Time None Recorded Advance Directives Directive None Recorded Payers Encounter Date Sequence Insurance Name Policy Number Policy Galvez Covered Member ID Galvez Member ID Guarantor Name 06/28/2023 1 [facility] Food on the Table - DOS ON OR AFTER 2022 - DUAL ELIGIBLE - DETENTION OPTIONS AND ONE CARE (MEDICARE REPLACEMENT/AD VANTAGE - HMO) Alden Green [id number] Alden Green 07/28/2023 1 [facility] Food on the Table - DOS ON OR AFTER 2022 - DUAL ELIGIBLE - DETENTION OPTIONS AND ONE CARE (MEDICARE REPLACEMENT/AD VANTAGE - HMO) Alden Green [id number] Alden Green Notes Date Note Type Note [...] Comments: Transcribed for [facility] Gary Bunch MD [address] [place] [address],[address] [facility], [place], [address], [employer] 06/28/2023 17:00:11 07/28/2023 text/html HPI: VNA reporting [...] .................. .................. .................. .................. .................. .................. ............... Product Picker Note From Pauly Olivier: Sent to a [...] removed, wound is packed; picture uploaded to [employer]. BP:115/78, P:92, RR:18, SpO2:97% RA, T:97.3; Head: unremarkable; Lung sounds: clear bilaterally; Abdomen: soft, non-tender, no distention; Back: unremarkable; Extremities: right foot: no erythema or edema noted; extremity is euthermic, wound on right toe: packed; area around wound appears to be healing well; Skin: pink, warm, dry; [facility] consulted and orders Toradol 15mg IM; Toradol 15mg IM administered without incident; Red flags discussed. Pt has no further questions. [facility] Medication Orders: ketorolac 30 mg/mL (1 mL) injection solution: Administered .................. .................. .................. .................. .................. .................. .................. ............... Disposition: Fulfilled Ezequiel Thrasher MD [address] [facility], [place], [address], [facility] - WebbynodeMAIKEL, INGRID 07/28/2023 15:58:18
== END 2024-11-13 10:46 | disposition home or self-care (01) ==
PROVIDERS: PCP Nurse Practitioner Family; Visit Provider Nurse Practitioner Family
DX: M25.512 Pain in left shoulder (principal); E11.9 Type 2 diabetes mellitus without complications

== ENCOUNTER → 2024-11-13 09:46 | Outpatient (BNVA) | payer OTHER, SELFPAY | PROVIDERS: PCP Nurse Practitioner Family; Visit Provider Nurse Practitioner Family | DX: M25.512 Pain in left shoulder (principal); E11.9 Type 2 diabetes mellitus without complications | CPT/HCPCS: 96127; 99212 ==

== ENCOUNTER 2024-12-07 11:20 | Outpatient (REF) | payer OTHER, SELFPAY ==
--- NOTE | ~2024-12-07 | XR_ITS ---
EXAMINATION: XR SHOULDER 2 OR MORE VIEWS LEFT HISTORY: M25.512 - Pain in left shoulder COMPARISON: There are no prior studies available for comparison. FINDINGS: Three views of the left shoulder are submitted. Osseous mineralization is normal. There is no fracture or dislocation. The glenohumeral joint is maintained. There is moderate to severe osteoarthritis of the AC joint, with joint space narrowing. The soft tissues are unremarkable. XR/XR shoulder LT min 2V IMPRESSION: Moderate to severe osteoarthritis of the AC joint. Electronically signed by: Henri Swain MD 12/09/2024 09:18 AM EDT
== END 2024-12-07 11:21 | disposition home or self-care (01) ==
LOC: HO.HMGCX 11:20
PROVIDERS: PCP Nurse Practitioner Family; Visit Provider Nurse Practitioner Family
DX: M25.512 Pain in left shoulder (principal)
CPT/HCPCS: 73030

== ENCOUNTER → 2024-12-07 11:32 | Outpatient (BNV) | payer OTHER, SELFPAY | PROVIDERS: PCP Nurse Practitioner Family; Visit Provider Radiology Diagnostic Radiology | DX: M19.012 Primary osteoarthritis, left shoulder (principal) | CPT/HCPCS: 73030 ==

== ENCOUNTER 2025-02-19 13:57 | Outpatient (AMB) | payer OTHER, SELFPAY ==
[2025-02-19 14:27] VITALS: BP 130/70; PULSE 86; O2SAT 97; BMI 32.7
--- NOTE | 2025-02-19 14:27 | A.OFFPC_ITS ---
Vital Signs 02/19/25 14:27 Height 5 ft 10 in Weight 228 lb BMI 32.7 BP 130/70 Blood Pressure Location Lt brachial Position Sitting Pulse 86 Pulse Source Pulse Oximeter Pulse Oximetry (%) 97 Oxygen Delivery Method Room Air Intake Visit Reasons: 3 months f/up Allergies adhesive tape Allergy (Intermediate, Verified 02/19/25 14:27) Rash codeine [Tylenol-Codeine #3] Allergy (Intermediate, Verified 02/19/25 14:27) Rash hydrocodone [Vicodin] Allergy (Intermediate, Verified 02/19/25 14:27) confusion/does not relieve pain morphine Allergy (Intermediate, Verified 02/19/25 14:27) rash diphenhydramine [From Benadryl] Adverse Reaction (Intermediate, Verified 02/19/25 14:27) Itching Tobacco use date assessed: 11/13/24 Dental Screening Dental Screen Date: 11/13/24 HPI 3 months f/up HPI Details Chief Complaint Excruciating, continuous pain in the right mid-heel. History of Present Illness The patient is a 59 year old male presenting with uncontrolled diabetes mellitus and right mid-heel pain. He describes the heel pain as excruciating and continuous, contributing to his discomfort. This pain is associated with the patient's history of severe peripheral neuropathy, extending bilaterally up to the shins. Ongoing management with an fire pilot, the patient's diabetes still remains poorly controlled. The patient also experiences vascular issues in the lower extremities, difficulty in finding pulses, especially on the right foot. Additionally, the patient has a history of smoking, a significant factor in his ongoing health issues. He also has arterial stenting to his RLE. Social History - Smoking: Ongoing use reported. Health Maintenance - Low-dose CT scans have been recommende d and are continued for monitoring due to smoking history. Review of Systems - Musculoskeletal: Reports excruciating and continuous right mid-heel pain. - Neurological: Reports severe neuropath y, up to shins bilaterally. Physical Exam General: Cooperative, healthy appearing, comfortable, no acute distress and well developed Orientation: Patient oriented x3 Limitations: No limitations Head: Normal to inspection Ears: Hearing grossly normal bilaterally Nose: Normal external nose present Face and sinus: Normal facial exam Eyes: Appearance normal, both eyes and all related structures Neck: Normal visual inspection and Yes full ROM Respiratory: Diminished, though air movement bilaterally Cardiovascular: Regular rate and rhythm. Normal S1 and S2 GI: Normal to inspection. Soft to palpation and nontender Neuro: Severe neuropathy to bilateral extremities, up to his superior shins Extremities: Difficult to find a pedal pulse on right foot, trace edema in bilateral lower extremities, plantar aspect of feet very dirty. no increase in pain with palpation of right heel Results Plan We plan to proceed with an X-ray and bilateral arterial testing to further evaluate the patient's vascular status concerning the mid-heel pain and complications from severe peripheral neuropathy. Continuous management and optimization of glycemic control are crucial, potentially adjusting in collaboration with endocrinology. The possibility of complications due to the ri ght lower extremity stent will be considered during vascular assessments. Smoking cessation will be advised to improve overall health outcomes. Discussion Notes I discussed with the patient the nature of his uncontrolled diabetes and its role in aggravating his peripheral neuropathy and associated heel pain. The importance of enhancing vascular health through smoking cessation was underscored, as well as the need for optimal glycemic control. We reviewed the plan for diagnostic evaluations through X-ray and arterial testing and how these would aid in forming a comprehensive treatment plan. Any potential changes in the vascular status could prompt further intervention or adjustment in management strategy. Patient Instructions - Continue working with an endocrinologi st for diabetes management. - Proceed to obtain the scheduled X-ray and arterial tests. - Strongly consider quitting smoking. - Monitor for changes in pain or other s ymptoms and report promptly. [facility] Medical History Obesity (BMI 30-39.9) Nicotine dependence, cigarettes, uncomplicated Cat bite Diabetes Dysplastic colon polyp Parasomnia CHF (congestive heart failure) Sleep apnea High cholesterol Hypertension Acid reflux Surgical History History of esophagogastroduodenoscopy (EGD) H/O colonoscopy Hx of rotator cuff surgery H/O resection of small bowel History of colon resection Family History Mother No problems noted. Father No problems noted. Social History Housing: Apartment Housing Other:: mobile home Are you a primary acute care certified nursing assistant to a significant other at home: No Do you presently have visiting nurse or other home services: No Alcohol intake: current Alcohol intake frequency: does not drink Patient Tobacco Use Status: Current everyday Tobacco user Tobacco use type: Cigarette and Cigar Cigarette Packs Per Day: 0.5 Cigarettes Per Day: 5 Years Smoked: 35+ Packs Per Year: 0 Packs per year/per ci.00 e-Cigarette/Vaping Use: Never Used Second Hand Smoke Exposure: No Substance Use Type: Marijuana Current occupational status: unemployed Current occupation: left handed Cognitive needs: No Hearing needs: No Vision needs: No Questionnaire Thrive Questionnaire Date Thrive assessed: 11/13/24 JULIETTE-7 AMB Questionnaire JULIETTE-7 Date JULIETTE - 7 assessed: 11/13/24 Source: Developed by Drs. Henri Puentes, Cassi Wisdom, Rick Rick and colleagues, with an educational arlet from [employer]. Physical exam (Primary Care) Vital Signs: Last Vital Signs Pulse 86 02/19/25 14:27 BP 130/70 02/19/25 14:27 Pulse Ox 97 02/19/25 14:27 Oxygen Delivery Method Room Air 02/19/25 14:27 BMI result Body Mass Index 32.7 Tobacco/Smoking Status: Tobacco use Status Tobacco use date assessed 11/13/24 02/19/25 14:30 Patient Tobacco Use Status Current everyday Tobacco 02/19/25 14:30 Tobacco use type Cigarette,Cigar 02/19/25 14:30 e-Cigarette/Vaping Use Never Used 02/19/25 14:30 Thrive Assessment: Date of Thrive Assessment Date Thrive assessed 11/13/24 02/19/25 14:30 Coding Level of Care Code Est Pt Level 4 (50784) Complex EM visit Add On G2211 Diagnoses Intractable right heel pain M79.671 PAD (peripheral artery disease) I73.9 Arterial stenosis I77.1 Nicotine dependence, cigarettes, uncomplicated F17.210 Screening PSA (prostate specific antigen) Z12.5 Uncontrolled type 2 diabetes mellitus with hyperglycemia E11.65 Diabetes mellitus type: type 2 Glycemic state: with hyperglycemia Assessment & Plan Assessment & Plan (1) Intractable right heel pain: Code(s): M79.671 - Pain in right foot Category: Medical (2) PAD (peripheral artery disease): Comment: 07/17/2023 right SFA atherectomy and plasty Code(s): I73.9 - Peripheral vascular disease, unspecified Category: Medical (3) Arterial stenosis: Code(s): I77.1 - Stricture of artery Category: Medical (4) Nicotine dependence, cigarettes, uncomplicated: Comment: (>20pyh) Code(s): F17.210 - Nicotine dependence, cigarettes, uncomplicated Category: Medical (5) Screening PSA (prostate specific antigen): Code(s): Z12.5 - Encounter for screening for malignant neoplasm of prostate Category: Medical (6) Uncontrolled diabetes mellitus: Code(s): E11.65 - Type 2 diabetes mellitus with hyperglycemia Category: Medical Qualifiers: Diabetes mellitus type: type 2 Glycemic state: with hyperglycemia Qualified Code(s): E11.65 - Type 2 diabetes mellitus with hyperglycemia Plan . Orders: Orders TSH reflex Free T4 Today I73.9 - Peripheral vascular disease, unspecified, I77.1 - Stricture of artery, Z12.5 - Encounter for screening for malignant neoplasm of prostate Lipid Panel Today I73.9 - Peripheral vascular disease, unspecified, I77.1 - Stricture of artery, Z12.5 - Encounter for screening for malignant neoplasm of prostate XR foot RT 2V Today M79.671 - Pain in right foot US arterial duplex LE BI Today F17.210 - Nicotine dependence, cigarettes, uncomplicated, I73.9 - Peripheral vascular disease, unspecified, I77.1 - Stricture of artery Complete Blood Count Auto Diff Today I73.9 - Peripheral vascular disease, unspecified, I77.1 - Stricture of artery, Z12.5 - Encounter for screening for malignant neoplasm of prostate Comprehensive [place]. Panel Fast Today I73.9 - Peripheral vascular disease, unspecified, I77.1 - Stricture of artery, Z12.5 - Encounter for screening for malignant neoplasm of prostate UA CC w/rflx Micro + Cult Today I73.9 - Peripheral vascular disease, unspecified, I77.1 - Stricture of artery, Z12.5 - Encounter for screening for malignant neoplasm of prostate Prostate Specific Antigen Scr Today I73.9 - Peripheral vascular disease, unspecified, I77.1 - Stricture of artery, Z12.5 - Encounter for screening for malignant neoplasm of prostate
--- OUTSIDE RECORDS SUMMARY | 2025-02-19 15:56 | XMS_ITS | Data Portability ---
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 12 g 98.7 [degF] 175.26 cm 98 % 98 % 89 /min 151 mm[Hg] 90 mm[Hg] Not Available [employer] - production 3 16:56:45 Date Recorded Body temperature Oxygen saturation Oxygen saturation in Arterial blood by Pulse oximetry Body weight Respiratory rate Heart rate Body height Systolic blood pressure Diastolic blood pressure Provider Name and Address Organization Details Last Updated DateTime 3 97.3 [degF] 97 % 97 % 770222. 08 g 18 /min 92 /min 177.8 cm 115 mm[Hg] 78 mm[Hg] Not Available [employer] - production 3 15:04:18 Social History None recorded. Functional Status None recorded. Mental Status None recorded. Family History Nothing Reported. Medical History No medical history recorded. Past Encounters Encounter ID Performer Location Encounter Start Date Encounter Closed Date Diagnosis/Indication Diagnosis SNOMED-CT Code Diagnosis ICD10 Code Diagnosis Note [id number] Gary Bunch MD [facility] [address] [place] [phone] 06/28/2023 16:56:38 06/28/2023 22:43:36 Low back pain 874985179 M54.50 57yo man presents with 5 days [...] current use of ibuprofen at 800mg q4-6h [id number] Ezequiel Thrasher MD [facility] - [facility] [address] [place] [phone] 07/28/2023 15:04:13 07/30/2023 15:38:55 Pain of toe of right foot [id number] 25686 M79.674 Patient reports continued pain in toe after successful treatment for diabetic foot wound. Appears to be healing well per patient and superintendent transmission. Will treat with ketorolac and encourage close PCP follow-up. Health Concerns Section Related Observation LastModified by Organization Detai ls LastModified Time None Recorded Concern Status LastModified by Organization Details LastModified Time None Recorded Advance Directives Directive None Recorded Payers Insurance Date Sequence Insurance Name Policy Number Policy Galvez Covered Member ID Galvez Member ID Guarantor Name 11/05/2023 1 [facility] - DOS ON OR AFTER 2022 - DUAL ELIGIBLE - HALF-WAY OPTIONS AND ONE CARE (MEDICARE REPLACEMENT/AD VANTAGE - HMO) [place] [id number] [place] Notes Date Note Type Note [...] .................. .................. .................. .................. .................. .................. ............... [facility] Nursing Assessment: Comments: Transcribed for VNA Gary Bunch MD [address] [place] [address],[address], [place], [phone], [employer] 06/28/2023 17:00:11 07/28/2023 text/html HPI: VNA reporting severe pain to his right foot for the last 4 days >calling to get assess>Ibuprofen and Tylenol with no relief. .................. .................. .................. .................. .................. .................. .................. ............... [facility] Nursing Assessment: Comments: Spoke with member's VNA [...] .................. .................. .................. .................. .................. .................. ............... Speech Therapist Technician Note From Pauly Olivier: Sent to a [...] removed, wound is packed; picture uploaded to [employer]. BP:115/78, P:92, RR:18, SpO2:97% RA, T:97.3; Head: unremarkable; Lung sounds: clear bilaterally; Abdomen: soft, non-tender, no distention; Back: unremarkable; Extremities: right foot: no erythema or edema noted; extremity is euthermic, wound on right toe: packed; area around wound appears to be healing well; Skin: pink, warm, dry; [facility] consulted and orders Toradol 15mg IM; Toradol 15mg IM administered without incident; Red flags discussed. Pt has no further questions. [facility] Medication Orders: ketorolac 30 mg/mL (1 mL) injection solution: Administered .................. .................. .................. .................. .................. .................. .................. ............... Disposition: Fulfilled Ezequiel Thrasher MD [address] [facility],[address], [place], [phone], JOE - [employer] GALVAN 07/28/2023 15:58:18
== END 2025-02-19 15:25 | disposition home or self-care (01) ==
LOC: HO.HMCC 13:57
PROVIDERS: PCP Nurse Practitioner Family; Visit Provider Nurse Practitioner Family
DX: E11.65 Type 2 diabetes mellitus with hyperglycemia (principal); M79.671 Pain in right foot; I73.9 Peripheral vascular disease, unspecified; I77.1 Stricture of artery; F17.210 Nicotine dependence, cigarettes, uncomplicated; Z12.5 Encounter for screening for malignant neoplasm of prostate

== ENCOUNTER 2025-02-19 13:57 | Outpatient (REF) | payer OTHER, SELFPAY ==
--- NOTE | ~2025-02-19 | XR_ITS ---
EXAMINATION: XR FOOT 1-2 VIEWS RIGHT HISTORY: M79.671 - Pain in right foot COMPARISON: Comparison is made with the prior examination dated 11/28/2023. FINDINGS: Three views of the right foot are submitted. Osseous mineralization is normal. There is no fracture or dislocation. 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 Milder changes are noted involving the MTP joint. There are vascular calcifications. XR/XR foot RT 2V IMPRESSION: Degenerative changes of the right foot as described. Electronically signed by: Henri Swain MD 02/19/2025 03:53 PM EDT
== END 2025-02-19 13:58 | disposition home or self-care (01) ==
LOC: HO.HMGCX 13:57
PROVIDERS: PCP Nurse Practitioner Family; Visit Provider Nurse Practitioner Family
DX: M79.671 Pain in right foot (principal); I73.9 Peripheral vascular disease, unspecified; I77.1 Stricture of artery; E11.65 Type 2 diabetes mellitus with hyperglycemia; F17.210 Nicotine dependence, cigarettes, uncomplicated
CPT/HCPCS: 73620; 99212

== ENCOUNTER → 2025-02-19 14:57 | Outpatient (BNV) | payer OTHER, SELFPAY | PROVIDERS: PCP Nurse Practitioner Family; Visit Provider Radiology Diagnostic Radiology | DX: M19.071 Primary osteoarthritis, right ankle and foot (principal) | CPT/HCPCS: 73620 ==